=== PATIENT | male | born 1935 | race American Indian/Alaskan Native ===

== ENCOUNTER 2019-07-05 10:47 | Inpatient (IN) | payer MEDICARE ==
--- NOTE | 2019-07-05 11:40 | Emergency Department Report ---
ED General Adult HPI - General Chief complaint: Hypoglycemia Stated complaint: HYPOGLYCEMIA Time Seen by Provider: 07/05/19 11:35 Source: patient, EMS (verbal report received from EMS.EMS notes not available at time of chart dictation) Mode of arrival: Stretcher Limitations: Physical Limitation, Other (the patient is a poor historian) - History of Present Illness Initial comments: This is an 84-year-old gentleman. This patient is not known to this provider previously. We do not know the name of his primary care doctor. We do not know the full details of his past medical history. Apparently, he has a defibrillator in situ, and may have a history of diabetes. Patient brought to the hospital by EMS for complaint of recurrent hypoglycemia. As per verbal report from EMS, they have received 3 calls in the past 12 hours for hypoglycemia, 2 episodes which were resolved with oral glucose as per EMS. However, the patient is still persistently hypoglycemic. Accu-Chek in the emergency room is 56. The patient denies physical pain. He does not know what medications he takes. He reports he gets his prescriptions at [facility], on [address] The patient states that he is cold and is asking for blankets. -: Gradual Improves with: medication Worsens with: none - Related Data Home Medications Medication Instructions Recorded Confirmed Last Taken Unobtainable 07/05/19 07/05/19 Unknown Allergies Allergy/AdvReac Type Severity Reaction Status Date / Time No Known Allergies Allergy Verified 07/05/19 11:07 ED Review of Systems ROS: Stated complaint: HYPOGLYCEMIA Other details as noted in HPI Constitutional: denies: fever Eyes: denies: eye discharge ENT: denies: epistaxis Respiratory: denies: cough Cardiovascular: denies: chest pain, syncope Gastrointestinal: denies: abdominal pain Genitourinary: denies: dysuria Musculoskeletal: myalgia Skin: rash, other (chronic discoloration and skin lesions to the bilateral lower extremities) Neurological: weakness, confusion ED Past Medical Hx - Past Medical History Previous Medical History?: Yes Hx Hypertension: Yes Hx Diabetes: Yes Additional medical history: defib. - Surgical History Past Surgical History?: No - Social History Smoking Status: Never Smoker Substance Use Type: None - Medications Home Medications: Home Medications Medication Instructions Recorded Confirmed Last Taken Type Unobtainable 07/05/19 07/05/19 Unknown History ED Physical Exam - General Limitations: Physical Limitation, Other (the patient is a poor historian) General appearance: alert, in no apparent distress - Head Head exam: Present: atraumatic, normocephalic - Eye Eye exam: Present: normal appearance. Absent: nystagmus - ENT ENT exam: Present: normal exam, normal orophraynx, mucous membranes moist, normal external ear exam - Neck Neck exam: Present: normal inspection, full ROM. Absent: tenderness, meningismus - Respiratory Respiratory exam: Present: normal lung sounds bilaterally. Absent: respiratory distress - Cardiovascular Cardiovascular Exam: Present: regular rate, normal rhythm, normal heart sounds. Absent: bradycardia, tachycardia, irregular rhythm, systolic murmur, diastolic murmur, rubs, gallop - GI/Abdominal GI/Abdominal exam: Present: soft. Absent: distended, tenderness, guarding, rebound, rigid, pulsatile mass - Rectal Rectal exam: Present: deferred - Extremities Exam Extremities exam: Present: pedal edema, other (2+ pulses noted in the bilateral upper, lower extremities. There is no long bony tenderness. The pelvis is stable. Muscular compartments are soft. There is no redness, pus, streaking or crepitus noted.). Absent: normal inspection (chronic skin discoloration venous stasis noted), calf tenderness - Back Exam Back exam: Present: normal inspection. Absent: CVA tenderness (R), CVA tenderness (L), paraspinal tenderness, vertebral tenderness - Neurological Exam Neurological exam: Present: alert, oriented X3, other (Extraocular movements are intact bilaterally. There is no facial droop. The tongue is midline. Patient speaking in full complete sentences. There is no dysphonia. Hearing is grossly intact bilaterally. Shoulder shrug is intact bilaterally. 5/5 strength bilateral upper, lower extremities. Sensation is intact to light touch bilateral upper, lower extremities.) - Psychiatric Psychiatric exam: Present: flat affect - Skin Skin exam: Present: warm ED Course Vital Signs 07/05/19 11:07 Temperature 97.6 F Pulse Rate 76 Respiratory 16 Rate Blood Pressure 108/44 O2 Sat by Pulse 99 Oximetry - Reevaluation(s) Reevaluation #1: 07/05/19 12:35 Differential diagnosis, including not limited to: Pneumonia, urinary tract infection, thyroid dysfunction, medication side effect, persistent hypoglycemia Assessment and plan: 84-year-old gentleman brought to the ER for recurrent hypoglycemia. His family is not at the bedside at this time. I have requested medications to be reconciled to make further recommendations. The patient is also at this time refusing a rectal temperature, and straight catheterized urine sample. Currently, the patient is afebrile and with reassuring vital signs and does not appear to be in any acute distress. A meal tray is at the bedside. He will be placed on Accu-Chek every one hour, and started on a dextrose drip. We will admit the patient to the medical service once initial diagnostics have resulted. Reevaluation #2: 07/05/19 13:31 Patient eating food, and in no acute distress. Laboratory studies demonstrate normocytic anemia, rectal examination performed, patient found to be guaiac- negative. Chaperoned by nurse Jhoan Durham Numerous sacral wounds noted, nursing team instructed to photograph forms as per this hospital's policies. Laboratory studies also demonstrate renal insufficiency of unknown chronicity. Elevated troponin is reviewed and appreciated, this is likely a type II troponin leak, likely secondary to renal insufficiency. Hospital physician is paged to arrange admission, anticipate admission to Dr. Bethany Mcdonald service Patient refusing Damon catheter at this time. ED Medical Decision Making - Lab Data Result diagrams: 07/05/19 12:08 07/05/19 12:08 Vital Signs 07/05/19 11:07 Temperature 97.6 F Pulse Rate 76 Respiratory 16 Rate Blood Pressure 108/44 O2 Sat by Pulse 99 Oximetry Lab Results 07/05/19 Range/Units 11:07 POC Glucose 56 L (70-105) Vital Signs 07/05/19 11:07 Temperature 97.6 F Pulse Rate 76 Respiratory 16 Rate Blood Pressure 108/44 O2 Sat by Pulse 99 Oximetry Lab Results 07/05/19 07/05/19 07/05/19 Range/Units 11:07 12:08 12:08 WBC (4.5-11.0) K/mm3 RBC (3.65-5.03) M/mm3 Hgb (11.8-15.2) gm/dl Hct (35.5-45.6) % MCV (84-94) fl MCH (28-32) pg MCHC (32-34) % RDW (13.2-15.2) % Plt Count (140-440) K/mm3 Lymph % (Auto) (13.4-35.0) % [place] % (Auto) (0.0-7.3) % Eos % (Auto) (0.0-4.3) % Baso % (Auto) (0.0-1.8) % Lymph # (1.2-5.4) K/mm3 [place] # (0.0-0.8) K/mm3 Eos # (0.0-0.4) K/mm3 Baso # (0.0-0.1) K/mm3 Seg Neutrophils % (40.0-70.0) % Seg Neutrophils # (1.8-7.7) K/mm3 Sodium 132 L (137-145) mmol/L Potassium 3.9 (3.6-5.0) mmol/L Chloride 100.1 (98-107) mmol/L Carbon Dioxide 14 L (22-30) mmol/L Anion Gap 22 mmol/L BUN 87 H (9-20) mg/dL Creatinine 5.6 H (0.8-1.5) mg/dL Estimated GFR 10 ml/min BUN/Creatinine Ratio 16 % Glucose 62 L (75-100) mg/dL POC Glucose 56 L (70-105) Lactic Acid (0.7-2.0) mmol/L Calcium 8.4 (8.4-10.2) mg/dL Magnesium 2.10 (1.7-2.3) mg/dL Total Bilirubin 0.30 (0.1-1.2) mg/dL AST 11 (5-40) units/L ALT 6 L (7-56) units/L Alkaline Phosphatase 92 (35-129) units/L Total Creatine Kinase 259 H (55-170) units/L Troponin T 0.156 H* (0.00-0.029) ng/mL Total Protein 7.8 (6.3-8.2) g/dL Albumin 2.8 L (3.9-5) g/dL Albumin/Globulin Ratio 0.6 % Triglycerides 73 (2-149) mg/dL Cholesterol 107 (50-199) mg/dL LDL Cholesterol Direct 56 (50-130) mg/dL HDL Cholesterol 49 (40-59) mg/dL Cholesterol/HDL Ratio 2.16 % TSH (0.270-4.200) mlU/mL Free T4 (0.76-1.46) ng/dL Urine Color Yellow (Yellow) Urine Turbidity Cloudy (Clear) Urine pH 5.0 (5.0-7.0) Ur Specific [place] 1.016 (1.003-1.030) Urine Protein <15 mg/dl (Negative) mg/dL Urine Glucose (UA) Neg (Negative) mg/dL Urine Ketones Neg (Negative) mg/dL Urine Blood Sm (Negative) Urine Nitrite Neg (Negative) Urine Bilirubin Neg (Negative) Urine Urobilinogen < 2.0 (<2.0) mg/dL Ur Leukocyte Esterase Sm (Negative) Urine WBC (Auto) 8.0 H (0.0-6.0) /HPF Urine RBC (Auto) 4.0 (0.0-6.0) /HPF U Epithel Cells (Auto) 27.0 H (0-13.0) /HPF Urine Bacteria (Auto) 1+ (Negative) /HPF Urine Mucus Few /HPF Salicylates (2.8-20.0) mg/dL Acetaminophen (10.0-30.0) ug/mL 07/05/19 07/05/19 07/05/19 Range/Units 12:08 12:08 12:08 WBC (4.5-11.0) K/mm3 RBC (3.65-5.03) M/mm3 Hgb (11.8-15.2) gm/dl Hct (35.5-45.6) % MCV (84-94) fl MCH (28-32) pg MCHC (32-34) % RDW (13.2-15.2) % Plt Count (140-440) K/mm3 Lymph % (Auto) (13.4-35.0) % [place] % (Auto) (0.0-7.3) % Eos % (Auto) (0.0-4.3) % Baso % (Auto) (0.0-1.8) % Lymph # (1.2-5.4) K/mm3 [place] # (0.0-0.8) K/mm3 Eos # (0.0-0.4) K/mm3 Baso # (0.0-0.1) K/mm3 Seg Neutrophils % (40.0-70.0) % Seg Neutrophils # (1.8-7.7) K/mm3 Sodium (137-145) mmol/L Potassium (3.6-5.0) mmol/L Chloride (98-107) mmol/L Carbon Dioxide (22-30) mmol/L Anion Gap mmol/L BUN (9-20) mg/dL Creatinine (0.8-1.5) mg/dL Estimated GFR ml/min BUN/Creatinine Ratio % Glucose (75-100) mg/dL POC Glucose (70-105) Lactic Acid 1.00 (0.7-2.0) mmol/L Calcium (8.4-10.2) mg/dL Magnesium (1.7-2.3) mg/dL Total Bilirubin (0.1-1.2) mg/dL AST (5-40) units/L ALT (7-56) units/L Alkaline Phosphatase (35-129) units/L Total Creatine Kinase (55-170) units/L Troponin T (0.00-0.029) ng/mL Total Protein (6.3-8.2) g/dL Albumin (3.9-5) g/dL Albumin/Globulin Ratio % Triglycerides (2-149) mg/dL Cholesterol (50-199) mg/dL LDL Cholesterol Direct (50-130) mg/dL HDL Cholesterol (40-59) mg/dL Cholesterol/HDL Ratio % TSH 3.070 (0.270-4.200) mlU/mL Free T4 1.40 (0.76-1.46) ng/dL Urine Color (Yellow) Urine Turbidity (Clear) Urine pH (5.0-7.0) Ur Specific [place] (1.003-1.030) Urine Protein (Negative) mg/dL Urine Glucose (UA) (Negative) mg/dL Urine Ketones (Negative) mg/dL Urine Blood (Negative) Urine Nitrite (Negative) Urine Bilirubin (Negative) Urine Urobilinogen (<2.0) mg/dL Ur Leukocyte Esterase (Negative) Urine WBC (Auto) (0.0-6.0) /HPF Urine RBC (Auto) (0.0-6.0) /HPF U Epithel Cells (Auto) (0-13.0) /HPF Urine Bacteria (Auto) (Negative) /HPF Urine Mucus /HPF Salicylates (2.8-20.0) mg/dL Acetaminophen (10.0-30.0) ug/mL 07/05/19 07/05/1907/05/19 Range/Units 12:08 12:08 12:08 WBC 8.4 (4.5-11.0) K/mm3 RBC 2.82 L (3.65-5.03) M/mm3 Hgb 8.1 L (11.8-15.2) gm/dl Hct 23.9 L (35.5-45.6) % MCV 85 (84-94) fl MCH 29 (28-32) pg MCHC 34 (32-34) % RDW 16.0 H (13.2-15.2) % Plt Count 310 (140-440) K/mm3 Lymph % (Auto) 6.9 L (13.4-35.0) % Lares % (Auto) 8.3 H (0.0-7.3) % Eos % (Auto) 1.1 (0.0-4.3) % Baso % (Auto) 0.6 (0.0-1.8) % Lymph # 0.6 L (1.2-5.4) K/mm3 Lares # 0.7 (0.0-0.8) K/mm3 Eos # 0.1 (0.0-0.4) K/mm3 Baso # 0.0 (0.0-0.1) K/mm3 Seg Neutrophils % 83.1 H (40.0-70.0) % Seg Neutrophils # 7.0 (1.8-7.7) K/mm3 Sodium (137-145) mmol/L Potassium (3.6-5.0) mmol/L Chloride (98-107) mmol/L Carbon Dioxide (22-30) mmol/L Anion Gap mmol/L BUN (9-20) mg/dL Creatinine (0.8-1.5) mg/dL Estimated GFR ml/min BUN/Creatinine Ratio % Glucose (75-100) mg/dL POC Glucose (70-105) Lactic Acid (0.7-2.0) mmol/L Calcium (8.4-10.2) mg/dL Magnesium (1.7-2.3) mg/dL Total Bilirubin (0.1-1.2) mg/dL AST (5-40) units/L ALT (7-56) units/L Alkaline Phosphatase (35-129) units/L Total Creatine Kinase (55-170) units/L Troponin T (0.00-0.029) ng/mL Total Protein (6.3-8.2) g/dL Albumin (3.9-5) g/dL Albumin/Globulin Ratio % Triglycerides (2-149) mg/dL Cholesterol (50-199) mg/dL LDL Cholesterol Direct (50-130) mg/dL HDL Cholesterol (40-59) mg/dL Cholesterol/HDL Ratio % TSH (0.270-4.200) mlU/mL Free T4 (0.76-1.46) ng/dL Urine Color (Yellow) Urine Turbidity (Clear) Urine pH (5.0-7.0) Ur Specific [place] (1.003-1.030) Urine Protein (Negative) mg/dL Urine Glucose (UA) (Negative) mg/dL Urine Ketones (Negative) mg/dL Urine Blood (Negative) Urine Nitrite (Negative) Urine Bilirubin (Negative) Urine Urobilinogen (<2.0) mg/dL Ur Leukocyte Esterase (Negative) Urine WBC (Auto) (0.0-6.0) /HPF Urine RBC (Auto) (0.0-6.0) /HPF U Epithel Cells (Auto) (0-13.0) /HPF Urine Bacteria (Auto) (Negative) /HPF Urine Mucus /HPF Salicylates < 0.3 L (2.8-20.0) mg/dL Acetaminophen < 5.0 L (10.0-30.0) ug/mL 07/05/19 Range/Units 12:55 WBC (4.5-11.0) K/mm3 RBC (3.65-5.03) M/mm3 Hgb (11.8-15.2) gm/dl Hct (35.5-45.6) % MCV (84-94) fl MCH (28-32) pg MCHC (32-34) % RDW (13.2-15.2) % Plt Count (140-440) K/mm3 Lymph % (Auto) (13.4-35.0) % Lares % (Auto) (0.0-7.3) % Eos % (Auto) (0.0-4.3) % Baso % (Auto) (0.0-1.8) % Lymph # (1.2-5.4) K/mm3 Lares # (0.0-0.8) K/mm3 Eos # (0.0-0.4) K/mm3 Baso # (0.0-0.1) K/mm3 Seg Neutrophils % (40.0-70.0) % Seg Neutrophils # (1.8-7.7) K/mm3 Sodium (137-145) mmol/L Potassium (3.6-5.0) mmol/L Chloride (98-107) mmol/L Carbon Dioxide (22-30) mmol/L Anion Gap mmol/L BUN (9-20) mg/dL Creatinine (0.8-1.5) mg/dL Estimated GFR ml/min BUN/Creatinine Ratio % Glucose (75-100) mg/dL POC Glucose 135 H (70-105) Lactic Acid (0.7-2.0) mmol/L Calcium (8.4-10.2) mg/dL Magnesium (1.7-2.3) mg/dL Total Bilirubin (0.1-1.2) mg/dL AST (5-40) units/L ALT (7-56) units/L Alkaline Phosphatase (35-129) units/L Total Creatine Kinase (55-170) units/L Troponin T (0.00-0.029) ng/mL Total Protein (6.3-8.2) g/dL Albumin (3.9-5) g/dL Albumin/Globulin Ratio % Triglycerides (2-149) mg/dL Cholesterol (50-199) mg/dL LDL Cholesterol Direct (50-130) mg/dL HDL Cholesterol (40-59) mg/dL Cholesterol/HDL Ratio % TSH (0.270-4.200) mlU/mL Free T4 (0.76-1.46) ng/dL Urine Color (Yellow) Urine Turbidity (Clear) Urine pH (5.0-7.0) Ur Specific [place] (1.003-1.030) Urine Protein (Negative) mg/dL Urine Glucose (UA) (Negative) mg/dL Urine Ketones (Negative) mg/dL Urine Blood (Negative) Urine Nitrite (Negative) Urine Bilirubin (Negative) Urine Urobilinogen (<2.0) mg/dL Ur Leukocyte Esterase (Negative) Urine WBC (Auto) (0.0-6.0) /HPF Urine RBC (Auto) (0.0-6.0) /HPF U Epithel Cells (Auto) (0-13.0) /HPF Urine Bacteria (Auto) (Negative) /HPF Urine Mucus /HPF Salicylates (2.8-20.0) mg/dL Acetaminophen (10.0-30.0) ug/mL - EKG Data -: EKG Interpreted by Il EKG shows normal: sinus rhythm Rate: normal - EKG Data When compared to previous EKG there are: previous EKG unavailable 07/05/19 12:36 This EKG is limited by motion artifact. This is a sinus rhythm, with a left axis deviation, QTC prolonged, motion artifact, poor R wave progression, interventricular conduction delay, there is no dorsum to chest pain, there is no prior for comparison, the EKG is abnormal, it is not consistent with ST elevation myocardial infarction. - Radiology Data Radiology results: report reviewed, image reviewed nt Report Referring Physician: NIKOLAS BURNS Patient Name: MOMO WARD Date of : 1935 Sex: Male Report Date: 2019-07-05 Report Status: Finalized Findings [facility] [address] [place] [address] XRay Report Signed Patient: MOMO WARD MR#: [id number] : 1935 Acct:[id number] Age/Sex: 84 / M ADM Date: 07/05/19 Loc: ED Attending Dr: Ordering Physician: NIKOLAS BURNS MD Date of Service: 07/05/19 Procedure(s): XR chest 1V ap Accession Number(s): [id number] cc: NIKOLAS BURNS MD Fluoro Time In Minutes: CHEST 2 VIEWS INDICATION / CLINICAL INFORMATION: Chest pain. COMPARISON: None available. FINDINGS: SUPPORT DEVICES: None. HEART / MEDIASTINUM: Borderline enlarged. LUNGS / PLEURA: Trace interstitial edema with tiny pleural effusions. Signer Name: Nik Breaux MD Signed: 07/05/2019 12:09 PM Workstation Name: [id number] Transcribed By: Dictated By: Nik Breaux MD Electronically Authenticated By: Nik Breaux MD Signed Date/Time: 07/05/19 1209 Critical care attestation.: If time is entered above; I have spent that time in minutes in the direct care of this critically ill patient, excluding procedure time. ED Disposition Clinical Impression: Hypoglycemia, Renal insufficiency Anemia Qualifiers: Anemia type: other cause Other causes of anemia: other cause, not classified Qualified Code(s): D64.89 - Other specified anemias Disposition: OP ADMIT IP TO THIS HOSP Is pt being admited?: Yes Condition: Fair
--- NOTE | 2019-07-05 12:13 | XRay Report ---
CHEST 2 VIEWS INDICATION / CLINICAL INFORMATION: Chest pain. COMPARISON: None available. FINDINGS: SUPPORT DEVICES: None. HEART / MEDIASTINUM: Borderline enlarged. LUNGS / PLEURA: Trace interstitial edema with tiny pleural effusions. Signer Name: Nik Breaux MD Signed: 07/05/2019 12:09 PM Workstation Name: [id number]
[2019-07-05 12:35] LABS: Basophils % (Auto) 0.6 % (0.0-1.8); Eosinophils # (Auto) 0.1 K/mm3 (0.0-0.4); Eosinophils % (Auto) 1.1 % (0.0-4.3); Hematocrit 23.9 % (35.5-45.6); Hemoglobin 8.1 gm/dl (11.8-15.2); Lymphocytes # (Auto) 0.6 K/mm3 (1.2-5.4); Lymphocytes % (Auto) 6.9 % (13.4-35.0); Mean Corpuscular HGB Conc 34 % (32-34); Mean Corpuscular Volume 85 fl (84-94); Monocytes # (Auto) 0.7 K/mm3 (0.0-0.8); Monocytes % (Auto) 8.3 % (0.0-7.3); Platelet Count 310 K/mm3 (140-440); Red Blood Count 2.82 M/mm3 (3.65-5.03)
[2019-07-05 12:37] LABS: Bacteria,Urine 1+ /HPF (Negative); Bilirubin,Urine NEG (Negative); Blood,Urine SM (Negative); Color,Urine Yellow (Yellow); Mucus,Urine FEW /HPF; Protein,Urine <15 mg/dL mg/dL (Negative); Urobilinogen,Urine < 2.0 mg/dL (<2.0)
[2019-07-05 13:01] LABS: Albumin 2.8 g/dL (3.9-5); Calcium 8.4 mg/dL (8.4-10.2)
[2019-07-05 13:24] LABS: Chol/HDL Ratio 2.16 %
[2019-07-05] MEDS ORDERED: NACL 0.9% 500 ML 500 ML IV ONE (13:33)
--- NOTE | 2019-07-05 13:36 | History and Physical Report ---
History of Present Illness Chief complaint: My blood sugar is gael low History of present illness: 84 YO Male with HTN, DM, Dementia, Debility, presents to ED for evaluation. Pt states that he has experienced low blood glucose levels over the past 1 day. EMS notified by family members for repeated low serum glucose levels. Pt seen and evaluated by EMS and was found to have serum glucose of 56. Pt transported to [facility]. Pt seen and evaluated in ED and found to have Acute Kidney Injury, as well as RLE Cellulitis, and Urinary Trace Infection. Pt denies fever, chills, CP, Palpitations, NVD, Trauma, BRBPR, Productive cough, or recent ill contacts. No prior admission for review. Pt is currently debilitated and dependent for 3/6 ADL. Pt is largely bed bound. Pt admitted to [facility] unit. Nephrology consulted in ED. Wound consult placed in ED. Past History Past Medical History: diabetes, hypertension Past Surgical History: Other (ICD placement) Social history: single, lives with family. denies: smoking, alcohol abuse, prescription drug abuse Family history: denies: diabetes, hypertension Medications and Allergies Allergies Allergy/AdvReac Type Severity Reaction Status Date / Time No Known Allergies Allergy Verified 07/05/19 11:07 Home Medications Medication Instructions Recorded Confirmed Last Taken Type Unobtainable 07/05/19 07/05/19 Unknown History Active Meds: Active Medications Dextrose (D10w) 1,000 mls @ 125 mls/hr IV DIRECT AWA Sodium Chloride (Nacl 0.9% 500 Ml) 500 mls @ 999 mls/hr IV ONCE ONE Stop: 07/05/19 14:03 Review of Systems Constitutional: no weight loss, no weight gain, no fever, no chills Ears, nose, mouth and throat: no ear pain, no ear discharge, no tinnitis, no decreased hearing, no nose pain, no nasal discharge, no sinus pressure Cardiovascular: no chest pain, no orthopnea, no palpitations, no edema, no syncope, no lightheadedness Respiratory: no cough, no cough with sputum, no excessive sputum, no hemoptysis, no dyspnea on exertion Gastrointestinal: no nausea, no diarrhea, no constipation, no change in bowel habits, no hematemesis Genitourinary Male: no dysuria, no hematuria, no flank pain, no discharge, no urinary hesitancy, no nocturia, no erectile dysfunction Rectal: no pain, no incontinence, no bleeding Musculoskeletal: no neck stiffness, no neck pain, no shooting arm pain, no low back pain Integumentary: no rash, no pruritis, no redness, no wounds, no jaundice, no boils Neurological: no transient paralysis, no paralysis, no weakness, no parathesias, no numbness, no seizures, no tremors Psychiatric: no anxiety, no change in sleep habits, no insomnia, no change in libido, no suicidal ideation Endocrine: no cold intolerance, no excessive thirst, no polyuria Hematologic/Lymphatic: no easy bruising, no easy bleeding, no lymphadenopathy Allergic/Immunologic: no urticaria, no allergic rhinitis, no wheezing, no persistent infections Exam - Constitutional Vitals: Temp Pulse Resp BP Pulse Ox 97.6 F 76 16 108/44 99 07/05/19 11:07 07/05/19 11:07 07/05/19 11:07 07/05/19 11:07 07/05/19 11:07 General appearance: Present: mild distress, obese, disheveled - EENT Eyes: Present: PERRL ENT: hearing intact, clear oral mucosa - Neck Neck: Present: supple, normal ROM - Respiratory Respiratory effort: normal Respiratory: bilateral: CTA - Cardiovascular Heart Sounds: Present: S1 & S2. Absent: rub, click - Extremities Extremities: pulses symmetrical, No edema Extremity abnormal: edema, ulceration, tenderness, other (dry skin, malodorous, ) Peripheral Pulses: within normal limits - Abdominal General gastrointestinal: Present: soft, non-tender, non-distended, normal bowel sounds Male genitourinary: Present: normal - Integumentary Integumentary: Present: clear, warm, dry - Musculoskeletal Musculoskeletal: generalized weakness - Psychiatric Psychiatric: appropriate mood/affect, intact judgment & insight - Neurologic Neurologic: CNII-XII intact, moves all extremities Results - Labs CBC & Chem 7: 07/05/19 12:08 07/05/19 12:08 Labs: Abnormal lab results 07/05/19 07/05/19 07/05/19 Range/Units 11:07 12:08 12:08 RBC (3.65-5.03) M/mm3 Hgb (11.8-15.2) gm/dl Hct (35.5-45.6) % RDW (13.2-15.2) % Lymph % (Auto) (13.4-35.0) % [place] % (Auto) (0.0-7.3) % Lymph # (1.2-5.4) K/mm3 Seg Neutrophils % (40.0-70.0) % Sodium 132 L (137-145) mmol/L Carbon Dioxide 14 L (22-30) mmol/L BUN 87 H (9-20) mg/dL Creatinine 5.6 H (0.8-1.5) mg/dL Glucose 62 L (75-100) mg/dL POC Glucose 56 L (70-105) ALT 6 L (7-56) units/L Total Creatine Kinase 259 H (55-170) units/L Troponin T 0.156 H* (0.00-0.029) ng/mL Albumin 2.8 L (3.9-5) g/dL Urine WBC (Auto) 8.0 H (0.0-6.0) /HPF U Epithel Cells (Auto) 27.0 H (0-13.0) /HPF Salicylates (2.8-20.0) mg/dL Acetaminophen (10.0-30.0) ug/mL 07/05/19 07/05/19 07/05/19 Range/Units 12:08 12:08 12:08 RBC 2.82 L (3.65-5.03) M/mm3 Hgb 8.1 L (11.8-15.2) gm/dl Hct 23.9 L (35.5-45.6) % RDW 16.0 H (13.2-15.2) % Lymph % (Auto) 6.9 L (13.4-35.0) % [place] % (Auto) 8.3 H (0.0-7.3) % Lymph # 0.6 L (1.2-5.4) K/mm3 Seg Neutrophils % 83.1 H (40.0-70.0) % Sodium (137-145) mmol/L Carbon Dioxide (22-30) mmol/L BUN (9-20) mg/dL Creatinine (0.8-1.5) mg/dL Glucose (75-100) mg/dL POC Glucose (70-105) ALT (7-56) units/L Total Creatine Kinase (55-170) units/L Troponin T (0.00-0.029) ng/mL Albumin (3.9-5) g/dL Urine WBC (Auto) (0.0-6.0) /HPF U Epithel Cells (Auto) (0-13.0) /HPF Salicylates < 0.3 L (2.8-20.0) mg/dL Acetaminophen < 5.0 L (10.0-30.0) ug/mL 07/05/19 Range/Units 12:55 RBC (3.65-5.03) M/mm3 Hgb (11.8-15.2) gm/dl Hct (35.5-45.6) % RDW (13.2-15.2) % Lymph % (Auto) (13.4-35.0) % [place] % (Auto) (0.0-7.3) % Lymph # (1.2-5.4) K/mm3 Seg Neutrophils % (40.0-70.0) % Sodium (137-145) mmol/L Carbon Dioxide (22-30) mmol/L BUN (9-20) mg/dL Creatinine (0.8-1.5) mg/dL Glucose (75-100) mg/dL POC Glucose 135 H (70-105) ALT (7-56) units/L Total Creatine Kinase (55-170) units/L Troponin T (0.00-0.029) ng/mL Albumin (3.9-5) g/dL Urine WBC (Auto) (0.0-6.0) /HPF U Epithel Cells (Auto) (0-13.0) /HPF Salicylates (2.8-20.0) mg/dL Acetaminophen (10.0-30.0) ug/mL Assessment and Plan - Patient Problems (1) Cellulitis Current Visit: Yes Status: Acute Qualifiers: Site of cellulitis of extremity: lower extremity Laterality: left Plan to address problem: CT to BLE, wound care consulted, IV antibiotic therapy x 1 dose due to renal failure, CBC, CMP, supportive care, (2) WILLIAM (acute kidney injury) Current Visit: Yes Status: Acute Plan to address problem: Nephrology consulted in ED, strict I/O,daily weight, monitor uop q shift, avoid nephrotoxic agents, renal ultrasound, urine electrolytes. (3) UTI (urinary tract infection) Current Visit: Yes Status: Acute Qualifiers: Encounter type: initial encounter Plan to address problem: IV antibiotic therapy, urinalysis, supportive care, CBC, (4) Debility Current Visit: Yes Status: Acute Plan to address problem: PT consulted, supportive care. (5) Hypoglycemia Current Visit: Yes Status: Acute Plan to address problem: Dextrose drip, serial glucose monitoring, supportive care, hold antihyperglycemic medication overnight. (6) DVT prophylaxis Current Visit: Yes Status: Acute Plan to address problem: SCD to BLE while in bed, prophylactic heparin
[2019-07-05] MEDS ORDERED: SODIUM CHLORIDE FLUSH SYRINGE 10 ML IV PRN (13:44)
[2019-07-05] MEDS ORDERED: ZOFRAN IV PRN (13:44)
[2019-07-05] MEDS ORDERED: PROVENTIL IH PRN (13:44)
[2019-07-05] MEDS ORDERED: NACL 0.9% 1000 ML 1,000 ML IV SCH (14:00)
[2019-07-05] MEDS ORDERED: NACL 0.9% 500 ML 500 ML ONE (14:02)
[2019-07-05] MEDS ORDERED: VANCOMYCIN/NS 1 GM/250 ML 1 GM/250 ML BAG IV ONE (17:00)
--- NOTE | 2019-07-05 19:20 | Cat Scan Report ---
CT lower extremity RT wo con INDICATION / CLINICAL INFORMATION: pain/swelling. TECHNIQUE: Routine CT of the right foreleg without IV contrast. All CT scans at this location are performed usin g CT dose reduction for KATIERA by means of automated exposure control. COMPARISON: None available. FINDINGS: CT right foreleg. There is a severe amount of cellulitis and edema throughout the soft tissues of the right foreleg. The fascia appears grossly intact but there is no evidence of postcontrast enhancemen t. There is severe osteopenia of the right foreleg involving both the tibia and fibula. 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 Small knee effusion. IMPRESSION: Severe subcutaneous edema of the right foreleg. Severe osteopenia of the right foreleg. N o obvious drainable fluid collection is identified within the limits of the noncontrast technique. Se ewa atherosclerotic disease throughout much of the right lower extremity arteries. Signer Name: Nik Breaux MD Signed: 07/05/2019 7:16 PM Workstation Name: [id number]
--- NOTE | 2019-07-05 19:22 | Cat Scan Report ---
CT lower extremity LT wo con INDICATION / CLINICAL INFORMATION: pain/swelling. Left foreleg pain and swelling. TECHNIQUE: Routine CT of the left foreleg without contrast All CT scans at this location are performed using CT dose reduction for ALARA by means of automated exposure control. COMPARISON: None available. FINDINGS: CT left foreleg Moderate subcutaneous edema of the left foreleg, not as severe as the contralateral right foreleg. Os teopenia of the left foreleg tibia and fibula. Mild degenerative changes of the left knee in the left ankle. Severe atherosclerotic calcification of the left foreleg anterior tibialis, posterior tibiali s and peroneal arteries. IMPRESSION: Severe cellulitis of the left foreleg, as above. Osteopenia of the left foreleg without evidence of d efinite osteomyelitis. Signer Name: Nik Breaux MD Signed: 07/05/2019 7:17 PM Workstation Name: [id number]
[2019-07-05] MEDS: D10W 1,000 ML IV SCH (20:38)
[2019-07-05] MEDS: TYLENOL PO PRN (20:39)
[2019-07-05] MEDS: HEPARIN SUB-Q SCH (22:24)
[2019-07-05] MEDS: SODIUM CHLORIDE FLUSH SYRINGE 10 ML IV SCH (22:25)
[2019-07-05 23:22] LABS: Creatinine,Urine 150.9 mg/dL (0.1-20.0)
[2019-07-06 05:29] LABS: Basophils % (Auto) 0.5 % (0.0-1.8); Eosinophils # (Auto) 0.1 K/mm3 (0.0-0.4); Eosinophils % (Auto) 1.7 % (0.0-4.3); Hematocrit 22.6 % (35.5-45.6); Hemoglobin 7.8 gm/dl (11.8-15.2); Lymphocytes # (Auto) 0.8 K/mm3 (1.2-5.4); Mean Corpuscular HGB Conc 34 % (32-34); Mean Corpuscular Volume 84 fl (84-94); Monocytes # (Auto) 0.6 K/mm3 (0.0-0.8); Monocytes % (Auto) 9.3 % (0.0-7.3); Platelet Count 295 K/mm3 (140-440); Red Blood Count 2.68 M/mm3 (3.65-5.03); Red Cell Distribution Width 15.7 % (13.2-15.2)
[2019-07-06] MEDS ORDERED: D50W (25GM) Syringe IV ONE (05:38)
[2019-07-06 06:00] LABS: Albumin 2.5 g/dL (3.9-5); Calcium 8.3 mg/dL (8.4-10.2)
[2019-07-06] MEDS: D10W 1,000 ML IV SCH (06:35)
[2019-07-06] MEDS: TYLENOL PO PRN (07:25)
[2019-07-06] MEDS ORDERED: D50W (25GM) Syringe IV PRN (07:57)
[2019-07-06] MEDS: HEPARIN SUB-Q SCH ×2 (09:00→22:14)
[2019-07-06] MEDS: SODIUM CHLORIDE FLUSH SYRINGE 10 ML IV SCH ×2 (09:01→22:14)
--- NOTE | 2019-07-06 09:43 | Consultation ---
History of Present Illness - Reason for Consult Consult date: 07/06/19 acute renal failure - History of Present Illness The patient is an 84 YO male who is known to me from previous admission with history significant for DM type 2, Hypertension, Hyperlipidemia, CAD, CHF s/p PPM and PVD who was brought to [facility] ED with low blood sugar. Per pt he has experienced low blood glucose levels of 1 day duration. EMS found him to have blood glucose of 56. Patient is a poor historian. He admits decreased PO intake. Pt denies fever, chills, N, V, D, abd pain, cough, dysuria, hematuria, rash, dizziness, CP or sob. In ED he was found to have Acute Kidney Injury and UA suggestive of UTI. Labs were significant for creatinine 5.6 and bicarb 18. Nephrology was consulted for further evaluation. Past History Past Medical History: diabetes, heart failure, hypertension, other (PVD) Past Surgical History: Other (ICD placement) Social history: single, lives with family. denies: smoking, alcohol abuse, pre scription drug abuse Family history: denies: diabetes, hypertension Medications and Allergies Allergies Allergy/AdvReac Type Severity Reaction Status Date / Time No Known Allergies Allergy Verified 07/05/19 11:07 Home Medications Medication Instructions Recorded Confirmed Last Taken Type ALBUTEROL NEB's [Proventil] 2.5 mg IH BID 07/06/19 07/06/19 07/03/19 15:00 History Albuterol Sulfate [Proventil Hfa] 6.7 gm IH BID PRN 07/06/19 07/06/19 Unknown History Aspirin EC [Halfprin EC] 81 mg PO HS 07/06/19 07/06/19 07/03/19 21:00 History Carvedilol [Coreg] 6.25 mg PO BID 07/06/19 07/06/19 Unknown History Cilostazol [Pletal] 50 mg PO BID 07/06/19 07/06/19 07/03/19 21:00 History Furosemide [Lasix TAB] 40 mg PO QDAY 07/06/19 07/06/19 Unknown History Losartan Potassium 100 mg PO DAILY 07/06/19 07/06/19 Unknown History Pravastatin Sodium [Pravastatin] 40 mg PO HS 07/06/19 07/06/19 07/03/19 21:00 History Simvastatin 20 mg PO HS 07/06/19 07/06/19 07/03/19 21:00 History Sitagliptin Phosphate [Januvia] 100 mg PO DAILY 07/06/19 07/06/19 07/03/19 09:00 History Tamsulosin [Flomax] 0.4 mg PO 07/06/19 07/06/19 07/03/19 21:00 History amLODIPine 10 mg PO DAILY 07/06/19 07/06/19 Unknown History Active Meds: Active Medications Acetaminophen (Tylenol) 650 mg PO Q4H PRN PRN Reason: Pain MILD(1-3)/Fever >100.5/GORDILLO Last Admin: 07/06/19 07:25 Dose: 650 mg Documented by: Albuterol (Proventil) 2.5 mg IH Q4HRT PRN PRN Reason: Shortness Of Breath Dextrose (D50w (25gm) Syringe) 25 ml IV PRN PRN PRN Reason: Hypoglycemia Heparin Sodium (Porcine) (Heparin) 5,000 unit SUB-Q Q12HR [facility] Last Admin: 07/06/19 09:00 Dose: 5,000 unit Documented by: Dextrose (D10w) 1,000 mls @ 125 mls/hr IV DIRECT [facility] Last Admin: 07/06/19 06:35 Dose: 125 mls/hr Documented by: Ondansetron HCl (Zofran) 4 mg IV Q8H PRN PRN Reason: Nausea And Vomiting Sodium Chloride (Sodium Chloride Flush Syringe 10 Ml) 10 ml IV BID [facility] Last Admin: 07/06/19 09:01 Dose: 10 ml Documented by: Sodium Chloride (Sodium Chloride Flush Syringe 10 Ml) 10 ml IV PRN PRN PRN Reason: LINE FLUSH Review of Systems Constitutional: anorexia, fatigue, poor appetite, no weight loss, no weight gain, no fever, no chills, no weakness Cardiovascular: high blood pressure, leg edema, no chest pain, no orthopnea, no edema, no syncope, no lightheadedness, no shortness of breath Respiratory: no cough, no hemoptysis, no shortness of breath Gastrointestinal: no abdominal pain, no nausea, no vomiting, no diarrhea Genitourinary Male: no dysuria, no hematuria Integumentary: no rash, no wounds, no jaundice Neurological: no paralysis Exam - Vital Signs Vital signs: Vital Signs Temp Pulse Resp BP Pulse Ox 97.6 F 76 16 108/44 99 07/05/19 11:07 07/05/19 11:07 07/05/19 11:07 07/05/19 11:07 07/05/19 11:07 - General Appearance General appearance: well-developed, appears stated age, other (no distress) EENT: ATNC, PERRL, hearing intact, vision intact Neck: Present: neck supple, trachea midline Respiratory: Clear to Ascultation Heart: regular Gastrointestinal: Absent: tenderness, distended Integumentary: warm and dry, chronic venous stasis Neurologic: no focal deficit, no asterixis, alert and oriented x3 Musculoskeletal: Present: other (no edema) Results - Lab Results 07/06/19 04:56 07/06/19 17:46 Most recent lab results Calcium 8.3 mg/dL (8.4-10.2) L 07/06/19 04:56 Magnesium 2.10 mg/dL (1.7-2.3) 07/05/19 12:08 150.9 mg/dL (0.1-20.0) H 07/05/19 22:30 36 mmol/L 07/05/19 22:30 - Image Kidney/bladder ultrasound: pending Assessment and Plan 1. Acute kidney injury: Vasomotor WILLIAM in the setting of hypotension. Renal US pending. Continue IV fluids. Renal function is improving. Monitor renal function. Avoid nephrotoxic agents. Meds dosage based on GFR. 2. FEN: Anion gap MA, improving. Continue IV fluids. Monitor lytes. 3. LE cellulitis: UTI. 4. Hypoglycemia: Monitor. 5. H/o CHF. 6. Normochromic Anemia: POA. Monitor H/H.
[2019-07-06] MEDS: NACL 0.9% 1000 ML 1,000 ML IV SCH ×2 (10:12→23:25)
[2019-07-06] MEDS: D50W (25GM) Vial IV PRN ×4 (11:48→22:23)
[2019-07-06] MEDS ORDERED: GLUCAGEN IV ONE (16:30)
[2019-07-07 06:36] LABS: Hematocrit 23.6 % (35.5-45.6); Hemoglobin 8.1 gm/dl (11.8-15.2)
--- NOTE | 2019-07-07 06:58 | Progress Note ---
Assessment and Plan (1) Cellulitis Current Visit: Yes Status: Acute Qualifiers: Site of cellulitis of extremity: lower extremity Laterality: left Plan to address problem: CT to BLE, wound care consulted, IV antibiotic therapy x 1 dose due to renal failure, CBC, CMP, supportive care, (2) WILLIAM (acute kidney injury) Current Visit: Yes Status: Acute Plan to address problem: Nephrology consulted in ED, strict I/O,daily weight, monitor uop q shift, avoid nephrotoxic agents, renal ultrasound, urine electrolytes. (3) UTI (urinary tract infection) Current Visit: Yes Status: Acute Qualifiers: Encounter type: initial encounter Plan to address problem: IV antibiotic therapy, urinalysis, supportive care, CBC, (4) Debility Current Visit: Yes Status: Acute Plan to address problem: PT consulted, supportive care. (5) Hypoglycemia Current Visit: Yes Status: Acute Plan to address problem: Dextrose drip, serial glucose monitoring, supportive care, hold antihyperglycemic medication overnight. Glucagon IM x1 (6) DVT prophylaxis Current Visit: Yes Status: Acute Plan to address problem: SCD to BLE while in bed, prophylactic heparin Subjective Date of service: 07/06/19 Principal diagnosis: Persistent Hypoglycemia and RLE cellulitis Interval history: 84 YO Male with HTN, DM, Dementia, Debility, presents to ED for evaluation. Pt states that he has experienced low blood glucose levels over the past 1 day. EMS notified by family members for repeated low serum glucose levels. Pt seen and evaluated by EMS and was found to have serum glucose of 56. Pt transported to [facility]. Pt seen and evaluated in ED and found to have Acute Kidney Injury, as well as RLE Cellulitis, and Urinary Trace Infection. Pt denies fever, chills, CP, Palpitations, NVD, Trauma, BRBPR, Productive cough, or recent ill contacts. No prior admission for review. Pt is currently debilitated and dependent for 3/6 ADL. Pt is largely bed bound. Pt admitted to [facility] unit. Nephrology consulted in ED. Wound consult placed in ED. Objective - Constitutional Vitals: Vital Signs - 12hr 07/06/19 07/06/19 07/07/19 20:18 22:00 02:53 Temperature 98.7 F 98.7 F Pulse Rate 92 H 92 H 90 Pulse Rate [ 92 H Apical] Pulse Rate [ 92 H From Monitor] Respiratory 18 18 18 Rate Blood Pressure 119/49 128/47 O2 Sat by Pulse 98 98 99 Oximetry General appearance: Present: no acute distress, well-nourished - EENT Eyes: PERRL, EOM intact ENT: hearing intact, clear oral mucosa Ears: bilateral: normal - Neck Neck: supple, normal ROM - Respiratory Respiratory effort: normal Respiratory: bilateral: CTA - Breasts Breasts: normal - Cardiovascular Heart rate: 78 Rhythm: regular Heart Sounds: Present: S1 & S2. Absent: gallop, rub Extremities: no ischemia, pulses intact, No edema, normal color, Full ROM - Gastrointestinal General gastrointestinal: Present: soft, non-tender, non-distended, normal bowel sounds - Genitourinary Male genitourinary: normal - Integumentary Integumentary: clear, warm, dry - Musculoskeletal Musculoskeletal: 1, strength equal bilaterally - Neurologic Neurologic: moves all extremities - Psychiatric Psychiatric: appropriate mood/affect, intact judgment & insight, memory intact, depressed - Allied health notes Allied health notes reviewed: nursing, case management - Labs CBC & Chem 7: 07/07/19 05:47 07/06/19 17:46 Labs: Abnormal lab results 07/06/19 07/06/19 07/06/19 Range/Units 09:05 11:28 11:49 Hgb (11.8-15.2) gm/dl Hct (35.5-45.6) % Glucose (75-100) mg/dL POC Glucose 407 H < 40 L < 40 L (70-105) 07/06/19 07/06/19 07/06/19 Range/Units 11:52 11:59 14:15 Hgb (11.8-15.2) gm/dl Hct (35.5-45.6) % Glucose 121 H (75-100) mg/dL POC Glucose 55 L < 40 L (70-105) 07/06/19 07/06/19 07/06/19 Range/Units 14:17 16:26 17:41 Hgb (11.8-15.2) gm/dl Hct (35.5-45.6) % Glucose (75-100) mg/dL POC Glucose 58 L < 40 L 141 H (70-105) 07/06/19 07/07/19 Range/Units 21:42 05:47 Hgb 8.1 L (11.8-15.2) gm/dl Hct 23.6 L (35.5-45.6) % Glucose (75-100) mg/dL POC Glucose 63 L (70-105)
[2019-07-07 07:00] LABS: BUN/Creatinine Ratio 35; Blood Urea Nitrogen 46 mg/dL (9-20); Calcium 8.5 mg/dL (8.4-10.2); Hemolysis Index 0
[2019-07-07] MEDS: HEPARIN SUB-Q SCH ×2 (09:03→22:14)
[2019-07-07] MEDS: SODIUM CHLORIDE FLUSH SYRINGE 10 ML IV SCH ×2 (09:04→22:13)
--- NOTE | 2019-07-07 11:50 | Progress Note ---
Assessment and Plan 1. Acute kidney injury: Vasomotor WILLIMA in the setting of hypotension. Renal US pending. Continue IV fluids. Renal function is better. Monitor renal function. Avoid nephrotoxic agents. 2. FEN: Anion gap MA, improving. Replete Phos. Continue IV fluids. Monitor lytes. 3. Hypoglycemia: Monitor. 4. H/o CHF. 5. Normochromic Anemia: POA. Monitor H/H. Subjective Date of service: 07/07/19 Principal diagnosis: Persistent Hypoglycemia and RLE cellulitis Interval history: Patient was seen and examined at the bedside. Doing ok. Objective - Vital Signs Vital signs: Vital Signs - 12hr 07/07/19 07/07/19 07/07/19 02:53 07:12 09:28 Temperature 98.7 F 98.2 F Pulse Rate 90 80 82 Pulse Rate [ From Monitor] Respiratory 18 18 Rate Blood Pressure 128/47 112/46 O2 Sat by Pulse 99 94 Oximetry 07/07/19 09:36 Temperature Pulse Rate Pulse Rate [ 82 From Monitor] Respiratory Rate Blood Pressure O2 Sat by Pulse 94 Oximetry - General Appearance General appearance: well-developed, well-nourished, appears stated age, other (no distress) EENT: ATNC, PERRL, hearing intact, vision intact Neck: supple Respiratory: Present: Clear to Ascultation Cardiology: regular, S1S2, no murmurs Gastrointestinal: normoactive bowel sounds, no distended Integumentary: chronic venous stasis Neurologic: no focal deficit, no asterixis, alert and oriented x3 Musculoskeletal: other (no edema) - Lab 07/07/19 05:47 07/07/19 05:47 Most recent lab results Calcium 8.5 mg/dL (8.4-10.2) 07/07/19 05:47 Phosphorus 2.40 mg/dL (2.5-4.5) L 07/07/19 05:47 Magnesium 1.80 mg/dL (1.7-2.3) 07/07/19 05:47 150.9 mg/dL (0.1-20.0) H 07/05/19 22:30 36 mmol/L 07/05/19 22:30 Medications & Allergies - Medications Allergies/Adverse Reactions: Allergies No Known Allergies Allergy (Verified 07/05/19 11:07) Home Medications: Home Medications Medication Instructions Recorded Confirmed Last Taken Type ALBUTEROL NEB's [Proventil] 2.5 mg IH BID 07/06/19 07/06/19 07/03/19 15:00 History Albuterol Sulfate [Proventil Hfa] 6.7 gm IH BID PRN 07/06/19 07/06/19 Unknown History Aspirin EC [Halfprin EC] 81 mg PO HS 07/06/19 07/06/19 07/03/19 21:00 History Carvedilol [Coreg] 6.25 mg PO BID 07/06/19 07/06/19 Unknown History Cilostazol [Pletal] 50 mg PO BID 07/06/19 07/06/19 07/03/19 21:00 History Furosemide [Lasix TAB] 40 mg PO QDAY 07/06/19 07/06/19 Unknown History Losartan Potassium 100 mg PO DAILY 07/06/19 07/06/19 Unknown History Pravastatin Sodium [Pravastatin] 40 mg PO HS 07/06/19 07/06/19 07/03/19 21:00 History Simvastatin 20 mg PO HS 07/06/19 07/06/19 07/03/19 21:00 History Sitagliptin Phosphate [Januvia] 100 mg PO DAILY 07/06/19 07/06/19 07/03/19 09:00 History Tamsulosin [Flomax] 0.4 mg PO HS 07/06/19 07/06/19 07/03/19 21:00 History amLODIPine 10 mg PO DAILY 07/06/19 07/06/19 Unknown History Active Medications: Generic Name Dose Route Start Last Admin Trade Name Mihaiq PRN Reason Stop Dose Admin Acetaminophen 650 mg 07/05/19 13:44 07/06/19 07:25 Tylenol PO 650 mg Q4H PRN Administration Pain MILD(1-3)/Fever >100.5/GORDILLO Albuterol 2.5 mg 07/05/19 13:44 Proventil IH Q4HRT PRN Shortness Of Breath Dextrose 25 gm 07/06/19 11:28 07/06/19 22:23 D50w (25gm) Vial IV 25 gm PRN PRN Administration HYPOGLYCEMIA Heparin Sodium (Porcine) 5,000 unit 07/05/19 22:00 07/07/19 09:03 Heparin SUB-Q 5,000 unit Q12HR AWA Administration Sodium Chloride 1,000 mls @ 75 mls/hr 07/06/19 11:00 07/06/19 23:25 Nacl 0.9% 1000 Ml IV 75 mls/hr DIRECT AWA Administration Ondansetron HCl 4 mg 07/05/19 13:44 Zofran IV Q8H PRN Nausea And Vomiting Sodium Chloride 10 ml 07/05/19 22:00 07/07/19 09:04 Sodium Chloride Flush Syringe 10 Ml IV 10 ml BID AWA Administration Sodium Chloride 10 ml 07/05/19 13:44 Sodium Chloride Flush Syringe 10 Ml IV PRN PRN LINE FLUSH
[2019-07-07] MEDS: AD OINTMENT TP SCH (13:44)
--- NOTE | 2019-07-07 13:44 | Ultrasound Report ---
ULTRASOUND RENAL INDICATION / CLINICAL INFORMATION: Acute kidney injury. COMPARISON: None available. FINDINGS: RIGHT KIDNEY: Length = 10.9 cm. [normal > 9 cm] - Parenchymal Thickness = 1.5 cm. [normal > 1.5 cm] - Echogenicity: Increased - Hydronephrosis: None. - Cyst or mass: No significant abnormality. - Stones: None seen. LEFT KIDNEY: Length = 11.7 cm. [normal > 9 cm] - Parenchymal Thickness = 1.7 cm. [normal > 1.5 cm] - Echogenicity: Increased - Hydronephrosis: None. - Cyst or mass: A 3.1 x 3.9 x 2.6 cm cyst is noted near mid pole. - Stones: None seen. URINARY BLADDER: No significant abnormality. FREE FLUID: None. ADDITIONAL FINDINGS: None. IMPRESSION: Increased renal parenchymal echotexture consistent with nonspecific renal parenchymal disease. 3.9 c m left renal cyst. No obstructive uropathy is identified. Signer Name: Gregory Carrillo Jr, MD Signed: 07/07/2019 1:40 PM Workstation Name: [id number]
[2019-07-07] MEDS ORDERED: PHOS-NAK PO ONE (14:00)
[2019-07-07] MEDS: NACL 0.9% 1000 ML 1,000 ML IV SCH (22:12)
[2019-07-08 06:26] LABS: BUN/Creatinine Ratio 28; Blood Urea Nitrogen 22 mg/dL (9-20); Calcium 8.5 mg/dL (8.4-10.2); Hemolysis Index 0
--- NOTE | 2019-07-08 07:38 | Progress Note ---
Assessment and Plan (1) Cellulitis Current Visit: Yes Status: Acute Qualifiers: Site of cellulitis of extremity: lower extremity Laterality: left Plan to address problem: CT to BLE, wound care consulted, IV antibiotic therapy x 1 dose due to renal failure, CBC, CMP, supportive care, D/c on oral aabz (2) WILLIAM (acute kidney injury) Current Visit: Yes Status: Acute Plan to address problem: Nephrology consulted in ED, strict I/O,daily weight, monitor uop q shift, avoid nephrotoxic agents, renal ultrasound, urine electrolytes. Bun/cr----20/0.8 (3) UTI (urinary tract infection) Current Visit: Yes Status: Acute Qualifiers: Encounter type: initial encounter Plan to address problem: IV antibiotic therapy, urinalysis, supportive care, CBC, (4) Debility Current Visit: Yes Status: Acute Plan to address problem: PT consulted, supportive care. (5) Hypoglycemia Current Visit: Yes Status: Acute Plan to address problem: Dextrose drip, serial glucose monitoring, supportive care, hold antihypergl ycemic medication overnight. Glucagon IM x1 (6) DVT prophylaxis Current Visit: Yes Status: Acute Plan to address problem: SCD to BLE while in bed, prophylactic heparin Subjective Date of service: 07/07/19 Principal diagnosis: Persistent Hypoglycemia and RLE cellulitis Interval history: 84 YO Male with HTN, DM, Dementia, Debility, presents to ED for evaluation. Pt states that he has experienced low blood glucose levels over the past 1 day. EMS notified by family members for repeated low serum glucose levels. Pt seen and evaluated by EMS and was found to have serum glucose of 56. Pt transported to [facility]. Pt seen and evaluated in ED and found to have Acute Kidney Injury, as well as RLE Cellulitis, and Urinary Trace Infection. Pt denies fever, chills, CP, Palpitations, NVD, Trauma, BRBPR, Productive cough, or recent ill contacts. No prior admission for review. Pt is currently debilitated and dependent for 3/6 ADL. Pt is largely bed bound. Pt admitted to [facility] unit. Nephrology consulted in ED. Wound consult placed in ED. Was persistently hypoglycemic yesterday.Better today--No hypoglycemic episodes today Objective - Constitutional Vitals: Vital Signs - 12hr 07/07/19 07/08/19 22:00 02:07 Temperature 99.5 F Pulse Rate 91 H 82 Pulse Rate [ 91 H Apical] Pulse Rate [ 91 H From Monitor] Respiratory 18 18 Rate Blood Pressure 117/52 O2 Sat by Pulse 98 96 Oximetry General appearance: Present: no acute distress, well-nourished - EENT Eyes: PERRL, EOM intact ENT: hearing intact, clear oral mucosa Ears: bilateral: normal - Neck Neck: supple, normal ROM - Respiratory Respiratory effort: normal Respiratory: bilateral: CTA - Breasts Breasts: normal - Cardiovascular Heart rate: 78 Rhythm: regular Heart Sounds: Present: S1 & S2. Absent: gallop, rub Extremities: pulses intact, No edema, normal color, Full ROM - Gastrointestinal General gastrointestinal: Present: soft, non-tender, non-distended, normal bowel sounds - Genitourinary Male genitourinary: normal - Integumentary Integumentary: clear, warm, dry - Musculoskeletal Musculoskeletal: 1, strength equal bilaterally - Neurologic Neurologic: moves all extremities - Psychiatric Psychiatric: memory intact, appropriate mood/affect, intact judgment & insight - Labs CBC & Chem 7: 07/07/19 05:47 07/08/19 04:12 Labs: Abnormal lab results 07/07/19 07/07/19 07/07/19 Range/Units 11:11 16:27 21:57 Chloride (98-107) mmol/L BUN (9-20) mg/dL Glucose (75-100) mg/dL POC Glucose 174 H 157 H 134 H (70-105) Phosphorus (2.5-4.5) mg/dL 07/08/19 07/08/19 Range/Units 04:12 07:20 Chloride 113.3 H (98-107) mmol/L BUN 22 H (9-20) mg/dL Glucose 152 H (75-100) mg/dL POC Glucose 167 H (70-105) Phosphorus 1.90 L D (2.5-4.5) mg/dL
[2019-07-08] MEDS: AD OINTMENT TP SCH (09:03)
[2019-07-08] MEDS: HEPARIN SUB-Q SCH (09:03)
[2019-07-08] MEDS: SODIUM CHLORIDE FLUSH SYRINGE 10 ML IV SCH (09:03)
--- NOTE | 2019-07-08 09:13 | Progress Note ---
Assessment and Plan 1. Acute kidney injury: Vasomotor WILLIAM in the setting of hypotension. Renal US negative for obstructive uropathy. Renal function is better. Monitor renal function. Avoid nephrotoxic agents. 2. FEN: Anion gap MA, improved. Replete Phos. Monitor lytes. 3. Hypoglycemia: Monitor. 4. H/o CHF. 5. Normochromic Anemia: POA. Monitor H/H. Subjective Date of service: 07/08/19 Principal diagnosis: Persistent Hypoglycemia and RLE cellulitis Interval history: Patient was seen and examined at the bedside. Doing ok. Objective - Vital Signs Vital signs: Vital Signs - 12hr 07/07/19 07/08/19 07/08/19 22:00 02:07 07:12 Temperature 99.5 F 98.0 F Pulse Rate 91 H 82 87 Pulse Rate [ 91 H Apical] Pulse Rate [ 91 H From Monitor] Respiratory 18 18 20 Rate Blood Pressure 117/52 119/57 O2 Sat by Pulse 98 96 95 Oximetry - General Appearance General appearance: well-developed, well-nourished, appears stated age, other (no distress) EENT: ATNC, PERRL, hearing intact, vision intact Neck: supple Respiratory: Present: Clear to Ascultation Cardiology: regular, S1S2, no murmurs Gastrointestinal: normoactive bowel sounds, no tenderness, no distended Integumentary: chronic venous stasis, other (R leg dressing) Neurologic: no focal deficit, no asterixis, alert and oriented x3 Musculoskeletal: other (no edema) - Lab 07/07/19 05:47 07/08/19 04:12 Most recent lab results Calcium 8.5 mg/dL (8.4-10.2) 07/08/19 04:12 Phosphorus 1.90 mg/dL (2.5-4.5) L D 07/08/19 04:12 Magnesium 1.80 mg/dL (1.7-2.3) 07/07/19 05:47 150.9 mg/dL (0.1-20.0) H 07/05/19 22:30 36 mmol/L 07/05/19 22:30 Medications & Allergies - Medications Allergies/Adverse Reactions: Allergies No Known Allergies Allergy (Verified 07/05/19 11:07) Home Medications: Home Medications Medication Instructions Recorded Confirmed Last Taken Type ALBUTEROL NEB's [Proventil] 2.5 mg IH BID 07/06/19 07/06/19 07/03/19 15:00 History Albuterol Sulfate [Proventil Hfa] 6.7 gm IH BID PRN 07/06/19 07/06/19 Unknown History Aspirin EC [Halfprin EC] 81 mg PO HS 07/06/19 07/06/19 07/03/19 21:00 History Carvedilol [Coreg] 6.25 mg PO BID 07/06/19 07/06/19 Unknown History Cilostazol [Pletal] 50 mg PO BID 07/06/19 07/06/19 07/03/19 21:00 History Furosemide [Lasix TAB] 40 mg PO QDAY 07/06/19 07/06/19 Unknown History Losartan Potassium 100 mg PO DAILY 07/06/19 07/06/19 Unknown History Pravastatin Sodium [Pravastatin] 40 mg PO HS 07/06/19 07/06/19 07/03/19 21:00 History Simvastatin 20 mg PO HS 07/06/19 07/06/19 07/03/19 21:00 History Sitagliptin Phosphate [Januvia] 100 mg PO DAILY 07/06/19 07/06/19 07/03/19 09:00 History Tamsulosin [Flomax] 0.4 mg PO HS 07/06/19 07/06/19 07/03/19 21:00 History amLODIPine 10 mg PO DAILY 07/06/19 07/06/19 Unknown History Active Medications: Generic Name Dose Route Start Last Admin Trade Name Freq PRN Reason Stop Dose Admin Acetaminophen 650 mg 07/05/19 13:44 07/06/19 07:25 Tylenol PO 650 mg Q4H PRN Administration Pain MILD(1-3)/Fever >100.5/GORDILLO Albuterol 2.5 mg 07/05/19 13:44 Proventil IH Q4HRT PRN Shortness Of Breath Dextrose 25 gm 07/06/19 11:28 07/06/19 22:23 D50w (25gm) Vial IV 25 gm PRN PRN Administration HYPOGLYCEMIA Heparin Sodium (Porcine) 5,000 unit 07/05/19 22:00 07/08/19 09:03 Heparin SUB-Q 5,000 unit Q12HR AWA Administration Sodium Chloride 1,000 mls @ 75 mls/hr 07/06/19 11:00 07/07/19 22:12 Nacl 0.9% 1000 Ml IV 75 mls/hr DIRECT AWA Administration Ondansetron HCl 4 mg 07/05/19 13:44 Zofran IV Q8H PRN Nausea And Vomiting Sodium Chloride 10 ml 07/05/19 22:00 07/08/19 09:03 Sodium Chloride Flush Syringe 10 Ml IV Not Given BID AWA Sodium Chloride 10 ml 07/05/19 13:44 Sodium Chloride Flush Syringe 10 Ml IV PRN PRN LINE FLUSH Vitamin A/Vitamin D 1 applic 07/07/19 14:00 07/08/19 09:03 Ad Ointment TP 1 applic QDAY AWA Administration
[2019-07-08] MEDS ORDERED: KPHOS 30 MMOL in NACL 0.9% 500 ML 500 ML IV ONE (10:00)
--- NOTE | 2019-07-08 12:49 | Discharge Summary ---
Providers - Providers Date of Admission: 07/05/19 13:44 Attending physician: REED PAUL MD 07/05/19 16:03 Consult to Physician [CONS] Routine Comment: spoke to dr. hancock/ prim[facility] Consulting Provider: RENATA HANCOCK Physician Instructions: Reason For Exam: WILLIAM 07/05/19 16:05 Consult to Wound/ET Nurse [CONS] Routine Reason For Exam: wound eval 07/05/19 20:14 Physical Therapy Evaluation and Treat [CONS] Routine Comment: Reason For Exam: debility/weakness 07/06/19 11:14 Consult to Dietitian/Nutrition [CONS] Stat Physician Instructions: Reason For Exam: wounds Reason for Consult: Pt needs oral supplement Primary care physician: YU LYON Hospitalization Condition: Fair Hospital course: Functional quadriplegia Severe malnutrition (1) Cellulitis Current Visit: Yes Status: Acute Qualifiers: Site of cellulitis of extremity: lower extremity Laterality: left Plan to address problem: CT to BLE, wound care consulted, IV antibiotic therapy x 1 dose due to renal failure, CBC, CMP, supportive care, D/c on oral aabz (2) WILLIAM (acute kidney injury) Current Visit: Yes Status: Acute Plan to address problem: Nephrology consulted in ED, strict I/O,daily weight, monitor uop q shift, avoid nephrotoxic agents, renal ultrasound, urine electrolytes. Bun/cr----20/0.8 (3) UTI (urinary tract infection) Current Visit: Yes Status: Acute Qualifiers: Encounter type: initial encounter Plan to address problem: IV antibiotic therapy, urinalysis, supportive care, CBC, (4) Debility Current Visit: Yes Status: Acute Plan to address problem: PT consulted, supportive care. (5) Hypoglycemia Current Visit: Yes Status: Acute Plan to address problem: Dextrose drip, serial glucose monitoring, supportive care, hold antihyperglycemic medication overnight. Glucagon IM x1 (6) DVT prophylaxis Current Visit: Yes Status: Acute Plan to address problem: SCD to BLE while in bed, prophylactic heparin Disposition: DC/TX-06 HOME UNDER [facility] Time spent for discharge: 33 mins Core Measure Documentation - Palliative Care Palliative Care/ Comfort Measures: Not Applicable - Core Measures Any of the following diagnoses?: none Exam - Constitutional Vitals: Temp Pulse Resp BP Pulse Ox 98.0 F 80 20 119/57 95 07/08/19 07:12 07/08/19 09:43 07/08/19 07:12 07/08/19 07:12 07/08/19 09:43 General appearance: Present: no acute distress, well-nourished - EENT Eyes: Present: PERRL ENT: hearing intact, clear oral mucosa - Neck Neck: Present: supple, normal ROM - Respiratory Respiratory effort: normal Respiratory: bilateral: CTA - Cardiovascular Heart Sounds: Present: S1 & S2. Absent: rub, click - Extremities Extremities: pulses symmetrical, No edema Peripheral Pulses: within normal limits - Abdominal General gastrointestinal: Present: soft, non-tender, non-distended, normal bowel sounds Male genitourinary: Present: normal - Integumentary Integumentary: Present: clear, warm, dry - Musculoskeletal Musculoskeletal: gait normal, strength equal bilaterally - Psychiatric Psychiatric: appropriate mood/affect, intact judgment & insight - Neurologic Neurologic: CNII-XII intact, moves all extremities Plan Follow up with: PRIMARY CARE, [Referring] - 3-5 Days Prescriptions: Vitamin A&D [Ad Ointment] 1 applic TP QDAY #1 tube Amoxicillin/Potassium Clav [Augmentin 875-125 Tablet] 1 each PO BID #10 tablet Metoprolol [Lopressor TAB] 50 mg PO BID #60 tablet
[2019-07-08 15:26] VITALS: BP 106/47
== END 2019-07-08 18:20 | disposition home health service (06) | DRG 682 ==
LOC: ED 10:47 → 2B-ACE 13:44
PROVIDERS: ADMIT Internal Medicine; ATTEND Internal Medicine
DX: N17.9 Acute kidney failure, unspecified (principal); E43 Unspecified severe protein-calorie malnutrition; R53.2 Functional quadriplegia; L03.115 Cellulitis of right lower limb; N39.0 Urinary tract infection, site not specified; E87.2 Acidosis; L03.116 Cellulitis of left lower limb; E86.9 Volume depletion, unspecified; E11.649 Type 2 diabetes mellitus with hypoglycemia without coma; I48.91 Unspecified atrial fibrillation; D64.89 Other specified anemias; F03.90 Unspecified dementia, unspecified severity, without behavioral disturbance, psychotic disturbance, mood disturbance, and anxiety; I25.10 Atherosclerotic heart disease of native coronary artery without angina pectoris; E78.5 Hyperlipidemia, unspecified; I50.9 Heart failure, unspecified; I11.0 Hypertensive heart disease with heart failure; E11.51 Type 2 diabetes mellitus with diabetic peripheral angiopathy without gangrene; I95.9 Hypotension, unspecified; D64.9 Anemia, unspecified; Z95.810 Presence of automatic (implantable) cardiac defibrillator; Z74.01 Bed confinement status
CPT/HCPCS: 36415; 71045; 76770; 80048; 80053; 80061; 80320; 81001; 82140; 82271; 82550; 82570; 82947; 82962; 83735; 83970; 84100; 84300; 84439; 84443; 84484; 85014; 85018; 85025; 87040; 87086; 93005; 93010; 96365; 96372; 96375; G0378; A6250; G0480; J1610; J1644; J2405; J3370; J7030; J7040

== ENCOUNTER 2019-07-19 06:37 | Inpatient (IN) | payer MEDICARE ==
[2019-07-19] MEDS ORDERED: DEXTROSE 50% IN WATER (25GM) 50 ML SYRINGE IV ONE (06:57)
[2019-07-19] MEDS ORDERED: DEXTROSE 5% IN WATER 1,000 ML IV SCH (07:00)
[2019-07-19] MEDS ORDERED: DEXTROSE 5% IN WATER 1,000 ML IV ONE (07:01)
--- NOTE | 2019-07-19 07:06 | Emergency Department Report ---
ED Altered Mental Status HPI - General Stated Complaint: HYPOGLYCEMIA Time Seen by Provider: 07/19/19 06:53 - History of Present Illness Initial Comments: Patient is a 84 years old male with history of hypertension, diabetes, dementia, very debilitated and very well bedridden. Patient brought to the emergency room via EMS for evaluation of decreased responsiveness. EMS stated that patient was unresponsive and drooling on the right side of his mouth. EMS stated that patient initial blood glucose was 22. Patient given dextrose 5% and patient immediately started waking up. Patient had similar admission beginning of this month. Patient also have a right leg cellulitis. MD Complaint: altered mental status, decreased responsiveness -: This morning - Related Data Home Medications Medication Instructions Recorded Confirmed Last Taken ALBUTEROL NEB's [Proventil 0.083% 2.5 mg IH BID 07/06/19 07/06/19 07/03/19 15:00 NEBS] Albuterol Sulfate [Proventil Hfa] 6.7 gm IH BID PRN 07/06/19 07/06/19 Unknown Aspirin EC [Halfprin EC] 81 mg PO HS 07/06/19 07/06/19 07/03/19 21:00 Cilostazol [Pletal] 50 mg PO BID 07/06/19 07/06/19 07/03/19 21:00 Pravastatin Sodium [Pravastatin] 40 mg PO HS 07/06/19 07/06/19 07/03/19 21:00 Tamsulosin [Flomax] 0.4 mg PO HS 07/06/19 07/06/19 07/03/19 21:00 Previous Rx's Medication Instructions Recorded Last Taken Type Amoxicillin/Potassium Clav 1 each PO BID #10 tablet 07/08/19 Unknown Rx [Augmentin 875-125 Tablet] Metoprolol [Lopressor TAB] 50 mg PO BID #60 tablet 07/08/19 Unknown Rx Vitamin A&D [Ad Ointment] 1 applic TP QDAY #1 tube 07/08/19 Unknown Rx Allergies Allergy/AdvReac Type Severity Reaction Status Date / Time No Known Allergies Allergy Verified 07/05/19 11:07 ED Review of Systems ROS: Stated complaint: HYPOGLYCEMIA Other details as noted in HPI Comment: All other systems reviewed and negative Constitutional: denies: chills, fever Respiratory: denies: cough, shortness of breath, SOB with exertion, wheezing Cardiovascular: denies: chest pain, palpitations Gastrointestinal: denies: abdominal pain, nausea, vomiting, diarrhea, constipation, hematemesis, melena, hematochezia Genitourinary: denies: urgency, dysuria Musculoskeletal: denies: back pain Neurological: weakness (generalized). denies: headache, numbness, paresthesias, confusion ED Past Medical Hx - Past Medical History Hx Hypertension: Yes Hx Diabetes: Yes Hx Liver Disease: No Hx Sickle Cell Disease: No Hx Arthritis: Yes (Rt hip) Additional medical history: defib. - Social History Smoking Status: Former Smoker - Medications Home Medications: Home Medications Medication Instructions Recorded Confirmed Last Taken Type ALBUTEROL NEB's [Proventil 0.083% 2.5 mg IH BID 07/06/19 07/06/19 07/03/19 15:00 History NEBS] Albuterol Sulfate [Proventil Hfa] 6.7 gm IH BID PRN 07/06/19 07/06/19 Unknown History Aspirin EC [Halfprin EC] 81 mg PO HS 07/06/19 07/06/19 07/03/19 21:00 History Cilostazol [Pletal] 50 mg PO BID 07/06/19 07/06/19 07/03/19 21:00 History Pravastatin Sodium [Pravastatin] 40 mg PO HS 07/06/19 07/06/19 07/03/19 21:00 History Tamsulosin [Flomax] 0.4 mg PO HS 07/06/19 07/06/19 07/03/19 21:00 History Amoxicillin/Potassium Clav 1 each PO BID #10 tablet 07/08/19 Unknown Rx [Augmentin 875-125 Tablet] Metoprolol [Lopressor TAB] 50 mg PO BID #60 tablet 07/08/19 Unknown Rx Vitamin A&D [Ad Ointment] 1 applic TP QDAY #1 tube 07/08/19 Unknown Rx ED Physical Exam - General General appearance: alert, in no apparent distress - Head Head exam: Present: atraumatic, normocephalic, normal inspection - Eye Eye exam: Present: normal appearance - ENT ENT exam: Present: normal exam, normal orophraynx, mucous membranes moist - Neck Neck exam: Present: normal inspection, full ROM. Absent: tenderness, meningismus, lymphadenopathy, thyromegaly - Respiratory Respiratory exam: Present: normal lung sounds bilaterally - Cardiovascular Cardiovascular Exam: Present: regular rate, normal rhythm, normal heart sounds - GI/Abdominal GI/Abdominal exam: Present: soft, normal bowel sounds. Absent: distended, tenderness, guarding, rebound, rigid, organomegaly, mass, bruit, pulsatile mass, hernia - Extremities Exam Extremities exam: Present: full ROM, normal capillary refill, other. Absent: pedal edema, calf tenderness - Back Exam Back exam: Present: normal inspection, full ROM. Absent: CVA tenderness (R), CVA tenderness (L), muscle spasm, paraspinal tenderness, vertebral tenderness - Assessment Assessment Interval: Baseline - Level of Consciousness 1a. Level of Consciousness: alert/keenly responsive - LOC Questions 1b. LOC Questions: answers both correctly - LOC Command 1c. LOC Commands: performs tasks correctly - Best Gaze 2. Best Gaze: normal - Visual 3. Visual: no visual loss - Facial Palsy 4. Facial Palsy: normal symmetrical movement - Motor Arm 5a. Motor Arm Left: no drift 5b. Motor Arm Right: no drift - Motor Leg 6a. Motor Leg Left: no drift 6b. Motor Leg Right: no drift - Limb Ataxia 7. Limb Ataxia: absent - Sensory 8. Sensory: normal - Best Language 9. Best Language: no aphasia - Dysarthria 10. Dysarthria: normal - Extinction and Inattention 11. Extinction/Inattention: no abnormality - Scoring Total Score: 0 Stroke Severity: No Stroke Symptoms ED Course Vital Signs 07/19/19 07:27 Temperature 98.2 F Pulse Rate 98 H Respiratory 18 Rate Blood Pressure 134/60 O2 Sat by Pulse 98 Oximetry - Lab Data Result diagrams: 07/19/19 07:25 07/19/19 07:25 Lab Results 07/19/19 07/19/19 07/19/19 Range/Units 07:04 07:25 07:25 WBC 11.9 H (4.5-11.0) K/mm3 RBC 2.80 L (3.65-5.03) M/mm3 Hgb 7.8 L (11.8-15.2) gm/dl Hct 23.6 L (35.5-45.6) % MCV 84 (84-94) fl MCH 28 (28-32) pg MCHC 33 (32-34) % RDW 15.8 H (13.2-15.2) % Plt Count 452 H (140-440) K/mm3 Lymph % (Auto) 5.2 L (13.4-35.0) % [place] % (Auto) 5.5 (0.0-7.3) % Eos % (Auto) 1.0 (0.0-4.3) % Baso % (Auto) 0.4 (0.0-1.8) % Lymph # 0.6 L (1.2-5.4) K/mm3 [place] # 0.7 (0.0-0.8) K/mm3 Eos # 0.1 (0.0-0.4) K/mm3 Baso # 0.0 (0.0-0.1) K/mm3 Seg Neutrophils % 87.9 H (40.0-70.0) % Seg Neutrophils # 10.4 H (1.8-7.7) K/mm3 PT 15.3 H (12.2-14.9) Sec. INR 1.24 H (0.87-1.13) APTT 29.5 (24.2-36.6) Sec. Sodium (137-145) mmol/L Potassium (3.6-5.0) mmol/L Chloride (98-107) mmol/L Carbon Dioxide (22-30) mmol/L Anion Gap mmol/L BUN (9-20) mg/dL Creatinine (0.8-1.5) mg/dL Estimated GFR ml/min BUN/Creatinine Ratio % Glucose (75-100) mg/dL POC Glucose 190 H (70-105) Lactic Acid (0.7-2.0) mmol/L Calcium (8.4-10.2) mg/dL Total Bilirubin (0.1-1.2) mg/dL Direct Bilirubin (0-0.2) mg/dL Indirect Bilirubin mg/dL AST (5-40) units/L ALT (7-56) units/L Alkaline Phosphatase (35-129) units/L Ammonia (25-60) umol/L Troponin T (0.00-0.029) ng/mL Total Protein (6.3-8.2) g/dL Albumin (3.9-5) g/dL Albumin/Globulin Ratio % Triglycerides (2-149) mg/dL Cholesterol (50-199) mg/dL LDL Cholesterol Direct (50-130) mg/dL HDL Cholesterol (40-59) mg/dL Cholesterol/HDL Ratio % Urine Color (Yellow) Urine Turbidity (Clear) Urine pH (5.0-7.0) Ur Specific [place] (1.003-1.030) Urine Protein (Negative) mg/dL Urine Glucose (UA) (Negative) mg/dL Urine Ketones (Negative) mg/dL Urine Blood (Negative) Urine Nitrite (Negative) Urine Bilirubin (Negative) Urine Urobilinogen (<2.0) mg/dL Ur Leukocyte Esterase (Negative) Urine WBC (Auto) (0.0-6.0) /HPF Urine RBC (Auto) (0.0-6.0) /HPF U Epithel Cells (Auto) (0-13.0) /HPF Urine Bacteria (Auto) (Negative) /HPF Hyaline Casts /LPF Urine Mucus /HPF Plasma/Serum Alcohol (0-0.07) % 07/19/19 07/19/19 07/19/19 Range/Units 07:25 07:25 07:25 WBC (4.5-11.0) K/mm3 RBC (3.65-5.03) M/mm3 Hgb (11.8-15.2) gm/dl Hct (35.5-45.6) % MCV (84-94) fl MCH (28-32) pg MCHC (32-34) % RDW (13.2-15.2) % Plt Count (140-440) K/mm3 Lymph % (Auto) (13.4-35.0) % [place] % (Auto) (0.0-7.3) % Eos % (Auto) (0.0-4.3) % Baso % (Auto) (0.0-1.8) % Lymph # (1.2-5.4) K/mm3 [place] # (0.0-0.8) K/mm3 Eos # (0.0-0.4) K/mm3 Baso # (0.0-0.1) K/mm3 Seg Neutrophils % (40.0-70.0) % Seg Neutrophils # (1.8-7.7) K/mm3 PT (12.2-14.9) Sec. INR (0.87-1.13) APTT (24.2-36.6) Sec. Sodium 136 L (137-145) mmol/L Potassium 3.0 L (3.6-5.0) mmol/L Chloride 98.4 (98-107) mmol/L Carbon Dioxide 23 (22-30) mmol/L Anion Gap 18 mmol/L BUN 23 H (9-20) mg/dL Creatinine 1.0 (0.8-1.5) mg/dL Estimated GFR > 60 ml/min BUN/Creatinine Ratio 23 % Glucose 92 (75-100) mg/dL POC Glucose (70-105) Lactic Acid 1.30 (0.7-2.0) mmol/L Calcium 8.1 L (8.4-10.2) mg/dL Total Bilirubin (0.1-1.2) mg/dL Direct Bilirubin (0-0.2) mg/dL Indirect Bilirubin mg/dL AST (5-40) units/L ALT (7-56) units/L Alkaline Phosphatase (35-129) units/L Ammonia (25-60) umol/L Troponin T 0.051 H (0.00-0.029) ng/mL Total Protein (6.3-8.2) g/dL Albumin (3.9-5) g/dL Albumin/Globulin Ratio % Triglycerides 63 (2-149) mg/dL Cholesterol 93 (50-199) mg/dL LDL Cholesterol Direct 49 L (50-130) mg/dL HDL Cholesterol 46 (40-59) mg/dL Cholesterol/HDL Ratio 2.02 % Urine Color (Yellow) Urine Turbidity (Clear) Urine pH (5.0-7.0) Ur Specific [place] (1.003-1.030) Urine Protein (Negative) mg/dL Urine Glucose (UA) (Negative) mg/dL Urine Ketones (Negative) mg/dL Urine Blood (Negative) Urine Nitrite (Negative) Urine Bilirubin (Negative) Urine Urobilinogen (<2.0) mg/dL Ur Leukocyte Esterase (Negative) Urine WBC (Auto) (0.0-6.0) /HPF Urine RBC (Auto) (0.0-6.0) /HPF U Epithel Cells (Auto) (0-13.0) /HPF Urine Bacteria (Auto) (Negative) /HPF Hyaline Casts /LPF Urine Mucus /HPF Plasma/Serum Alcohol < 0.01 (0-0.07) % 07/19/19 07/19/19 07/19/19 Range/Units 07:25 07:25 08:20 WBC (4.5-11.0) K/mm3 RBC (3.65-5.03) M/mm3 Hgb (11.8-15.2) gm/dl Hct (35.5-45.6) % MCV (84-94) fl MCH (28-32) pg MCHC (32-34) % RDW (13.2-15.2) % Plt Count (140-440) K/mm3 Lymph % (Auto) (13.4-35.0) % [place] % (Auto) (0.0-7.3) % Eos % (Auto) (0.0-4.3) % Baso % (Auto) (0.0-1.8) % Lymph # (1.2-5.4) K/mm3 [place] # (0.0-0.8) K/mm3 Eos # (0.0-0.4) K/mm3 Baso # (0.0-0.1) K/mm3 Seg Neutrophils % (40.0-70.0) % Seg Neutrophils # (1.8-7.7) K/mm3 PT (12.2-14.9) Sec. INR (0.87-1.13) APTT (24.2-36.6) Sec. Sodium (137-145) mmol/L Potassium (3.6-5.0) mmol/L Chloride (98-107) mmol/L Carbon Dioxide (22-30) mmol/L Anion Gap mmol/L BUN (9-20) mg/dL Creatinine (0.8-1.5) mg/dL Estimated GFR ml/min BUN/Creatinine Ratio % Glucose (75-100) mg/dL POC Glucose (70-105) Lactic Acid (0.7-2.0) mmol/L Calcium (8.4-10.2) mg/dL Total Bilirubin 0.40 (0.1-1.2) mg/dL Direct Bilirubin < 0.2 (0-0.2) mg/dL Indirect Bilirubin 0.2 mg/dL AST 15 (5-40) units/L ALT 6 L (7-56) units/L Alkaline Phosphatase 113 (35-129) units/L Ammonia 48.0 (25-60) umol/L Troponin T (0.00-0.029) ng/mL Total Protein 7.6 (6.3-8.2) g/dL Albumin 2.6 L (3.9-5) g/dL Albumin/Globulin Ratio 0.5 % Triglycerides (2-149) mg/dL Cholesterol (50-199) mg/dL LDL Cholesterol Direct (50-130) mg/dL HDL Cholesterol (40-59) mg/dL Cholesterol/HDL Ratio % Urine Color Yellow (Yellow) Urine Turbidity Clear (Clear) Urine pH 5.0 (5.0-7.0) Ur Specific [place] 1.013 (1.003-1.030) Urine Protein <15 mg/dl (Negative) mg/dL Urine Glucose (UA) Neg (Negative) mg/dL Urine Ketones Neg (Negative) mg/dL Urine Blood Sm (Negative) Urine Nitrite Neg (Negative) Urine Bilirubin Neg (Negative) Urine Urobilinogen < 2.0 (<2.0) mg/dL Ur Leukocyte Esterase Neg (Negative) Urine WBC (Auto) 3.0 (0.0-6.0) /HPF Urine RBC (Auto) 3.0 (0.0-6.0) /HPF U Epithel Cells (Auto) 2.0 (0-13.0) /HPF Urine Bacteria (Auto) 1+ (Negative) /HPF Hyaline Casts 2 /LPF Urine Mucus Few /HPF Plasma/Serum Alcohol (0-0.07) % - EKG Data -: EKG Interpreted by [place] EKG shows normal: sinus rhythm Rate: normal Interpretation: no acute changes - Radiology Data Radiology results: report reviewed - Medical Decision Making Patient is a 84 years old male with history of hypertension, diabetes, dementia, very debilitated and very well bedridden. Patient brought to the emergency room via EMS for evaluation of decreased responsiveness. EMS stated that patient was unresponsive and drooling on the right side of his mouth. EMS stated that patient initial blood glucose was 22. Patient given dextrose 5% and patient immediately started waking up. Patient had similar admission beginning of this month. Patient also have a right leg cellulitis. Patient continued on dextrose 5%. Given a meal tray. Patient remained alert and oriented, in no acute distress. CT brain is negative for acute finding. Labs reviewed and shows slightly elevated blood cells and is most likely due to his old on the right lower extremity. Patient received 1 dose of vancomycin. Discussed the patient was , she advised to admit the patient to Dr. Jimenez. Critical Care Time: Yes Critical care time in (mins) excluding proc time.: 30 Critical care attestation.: If time is entered above; I have spent that time in minutes in the direct care of this critically ill patient, excluding procedure time. ED Disposition Clinical Impression: Hypoglycemia, Cellulitis, Elevated troponin Disposition: -09 OP ADMIT IP TO THIS HOSP Is pt being admited?: Yes Condition: Stable Referrals: ANGEL REDDY MD [Primary Care Provider] - 3-5 Days
[2019-07-19 07:54] LABS: Basophils % (Auto) 0.4 % (0.0-1.8); Eosinophils # (Auto) 0.1 K/mm3 (0.0-0.4); Hematocrit 23.6 % (35.5-45.6); Hemoglobin 7.8 gm/dl (11.8-15.2); Lymphocytes # (Auto) 0.6 K/mm3 (1.2-5.4); Lymphocytes % (Auto) 5.2 % (13.4-35.0); Mean Corpuscular HGB Conc 33 % (32-34); Mean Corpuscular Volume 84 fl (84-94); Monocytes # (Auto) 0.7 K/mm3 (0.0-0.8); Monocytes % (Auto) 5.5 % (0.0-7.3); Platelet Count 452 K/mm3 (140-440); Red Cell Distribution Width 15.8 % (13.2-15.2)
[2019-07-19 07:59] LABS: Alanine Aminotransferase 6 units/L (7-56); Albumin 2.6 g/dL (3.9-5)
[2019-07-19 08:02] LABS: BUN/Creatinine Ratio 23; Blood Urea Nitrogen 23 mg/dL (9-20); Calcium 8.1 mg/dL (8.4-10.2); Hemolysis Index 0
[2019-07-19 08:04] LABS: INR 1.24 (0.87-1.13)
[2019-07-19 08:05] LABS: Bilirubin,Direct < 0.2 mg/dL (0-0.2)
--- NOTE | 2019-07-19 08:15 | Cat Scan Report ---
CT HEAD WITHOUT CONTRAST INDICATION: Altered Mental Status. TECHNIQUE: All CT scans at this location are performed using CT dose reduction for ALARA by means of automated e xposure control. COMPARISON: None available. FINDINGS: HEMORRHAGE: None. EXTRA-AXIAL SPACES: Normal in size and morphology for the patient's age. VENTRICULAR SYSTEM: Normal in size and morphology for the patient's age. BRAIN PARENCHYMA: No acute findings. 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 MIDLINE SHIFT OR HERNIATION: None. ORBITS: Normal as visualized. SOFT TISSUES OF HEAD: Normal. CALVARIUM: Normal. VISUALIZED PARANASAL SINUSES AND MASTOID AIR CELLS: Clear. ADDITIONAL FINDINGS: None. IMPRESSION: 1. No acute intracranial abnormality. Signer Name: Adarsh Monroy MD Signed: 07/19/2019 8:11 AM Workstation Name: [id number]
[2019-07-19 08:32] LABS: Bacteria,Urine 1+ /HPF (Negative); Bilirubin,Urine NEG (Negative); Blood,Urine SM (Negative); Color,Urine Yellow (Yellow); Hyaline Casts,Urine 2 /LPF; Mucus,Urine FEW /HPF; Protein,Urine <15 mg/dL mg/dL (Negative); Urobilinogen,Urine < 2.0 mg/dL (<2.0)
[2019-07-19 08:33] LABS: Chol/HDL Ratio 2.02 %; HDL Cholesterol 46 mg/dL (40-59); LDL Cholesterol,Direct 49 mg/dL (50-130)
[2019-07-19 08:36] LABS: Partial Thromboplastin Time 29.5 Sec. (24.2-36.6)
[2019-07-19] MEDS ORDERED: VANCOMYCIN/NS 1 GM/250 ML 1 GM/250 ML BAG IV ONE (08:37)
--- NOTE | 2019-07-19 08:43 | XRay Report ---
CHEST 1 VIEW INDICATION: Altered Mental Status. COMPARISON: 07/05/2019. FINDINGS: Support devices: Cardiac lead is unchanged. Heart: Normal. Lungs/Pleura: No acute pulmonary or pleural findings. IMPRESSION: 1. No acute findings. Signer Name: Adarsh Monroy MD Signed: 07/19/2019 8:39 AM Workstation Name: [id number]
--- NOTE | 2019-07-19 09:35 | History and Physical Report ---
History of Present Illness Date of examination: 07/19/19 Chief complaint: Confused History of present illness: Patient is a 84 yo man with a history of hypertension, DM type 2 not known to be on medications and functional quadriplegia/bed bound state who presents to [facility] with AMS. Patient became confused this morning associated with slurred speech and a period of unresponsiveness. Blood glucose via fingerstick was 22 when EMS checked, they gave him 1 amp of Dextrose and blood sugars increased to 190. Patient brought to the emergency room via EMS for evaluation of decreased responsiveness. EMS stated that patient was unresponsive and drooling on the right side of his mouth. After Dextrose given, patient immediately started waking up. Patient had similar admission beginning of this month. Patient also have a right leg cellulitis and discharged on Augmentin. He was admitted here on 07/05/19 with similar presentation of hypoglycemia and found to have UTI, right foot infection, ARF. He was just discharged on 07/08/19. PMH: as hpi PSH: AICD SH: he denies tob/etoh/illegal drug use FH: he denies hypertension ROS: Constitutional: denies: fever ENT: denies: throat or neck pain Respiratory: denies: cough, shortness of breath Cardiovascular: denies: chest pain Endocrine: denies unexplained weight loss or gain Gastrointestinal: denies: abdominal pain, nausea Genitourinary: denies: dysuria Rectal: denies no incontinence, no bleeding, no itching, no discharge Musculoskeletal: +swelling, myaglia, muscle weakness Skin: + right foot and leg infection Neurological: denies severe headache Hematological/Lymphatic: denies: easy bleeding or easy bruising Allergic/Immunologic: no urticaria, no allergic rhinitis, no anaphylaxis Psych: denies sadness or hopelessness, SI/HI Medications and Allergies Allergies Allergy/AdvReac Type Severity Reaction Status Date / Time No Known Allergies Allergy Verified 07/05/19 11:07 Home Medications Medication Instructions Recorded Confirmed Last Taken Type ALBUTEROL NEB's [Proventil 0.083% 2.5 mg IH BID 07/06/19 07/06/19 07/03/19 15:00 History NEBS] Albuterol Sulfate [Proventil Hfa] 6.7 gm IH BID PRN 07/06/19 07/06/19 Unknown History Aspirin EC [Halfprin EC] 81 mg PO HS 07/06/19 07/06/19 07/03/19 21:00 History Cilostazol [Pletal] 50 mg PO BID 07/06/19 07/06/19 07/03/19 21:00 History Pravastatin Sodium [Pravastatin] 40 mg PO HS 07/06/19 07/06/19 07/03/19 21:00 History Tamsulosin [Flomax] 0.4 mg PO HS 07/06/19 07/06/19 07/03/19 21:00 History Amoxicillin/Potassium Clav 1 each PO BID #10 tablet 07/08/19 Unknown Rx [Augmentin 875-125 Tablet] Metoprolol [Lopressor TAB] 50 mg PO BID #60 tablet 07/08/19 Unknown Rx Vitamin A&D [Ad Ointment] 1 applic TP QDAY #1 tube 07/08/19 Unknown Rx Active Meds: Active Medications Dextrose (D5w) 1,000 mls @ 150 mls/hr IV DIRECT AWA Vancomycin HCl (Vancomycin/Ns 1 Gm/250 Ml) 1 gm in 250 mls @ 167.007 mls/hr IV ONCE ONE; Protocol Stop: 07/19/19 10:06 Exam - Physical Exam Narrative exam: Gen: chronically disable, acutely ill appearing, NAD, Awake, Alert, Orientated x 3 HEENT: NCAT, EOMI, PERRL, OP Clear Neck: supple, no adenopathy, no thyromegaly, no JVD CVS/Heart: RRR, normal S1S2, pulses present bilaterally Chest/Lungs: CTA B, Symmetrical chest expansion, good air entry bilaterally GI/Abdomen: soft, NTND, good bowel sounds, no guarding or rebound /Bladder: no suprapubic tenderness, no CVA or paraspinal tenderness Extermity/Skin: malordorus draining necrotic lateral right foot, also warm, erythematous circumferential redness with superficial ulcers up right renae, bilateral leg edema MSK: FROM x 4 Neuro: CN 2-12 grossly intact, no new focal deficits Psych: calm - Constitutional Vitals: Temp Pulse Resp BP Pulse Ox 98.2 F 98 H 18 134/60 98 07/19/19 07:27 07/19/19 07:27 07/19/19 07:27 07/19/19 07:27 07/19/19 07:27 Results - Labs CBC & Chem 7: 07/19/19 07:25 07/19/19 07:25 Labs: Abnormal lab results 07/19/19 07/19/19 07/19/19 Range/Units 07:04 07:25 07:25 WBC 11.9 H (4.5-11.0) K/mm3 RBC 2.80 L (3.65-5.03) M/mm3 Hgb 7.8 L (11.8-15.2) gm/dl Hct 23.6 L (35.5-45.6) % RDW 15.8 H (13.2-15.2) % Plt Count 452 H (140-440) K/mm3 Lymph % (Auto) 5.2 L (13.4-35.0) % Lymph # 0.6 L (1.2-5.4) K/mm3 Seg Neutrophils % 87.9 H (40.0-70.0) % Seg Neutrophils # 10.4 H (1.8-7.7) K/mm3 PT 15.3 H (12.2-14.9) Sec. INR 1.24 H (0.87-1.13) Sodium (137-145) mmol/L Potassium (3.6-5.0) mmol/L BUN (9-20) mg/dL POC Glucose 190 H (70-105) Calcium (8.4-10.2) mg/dL ALT (7-56) units/L Troponin T (0.00-0.029) ng/mL Albumin (3.9-5) g/dL LDL Cholesterol Direct (50-130) mg/dL 07/19/19 07/19/19 Range/Units 07:25 07:25 WBC (4.5-11.0) K/mm3 RBC (3.65-5.03) M/mm3 Hgb (11.8-15.2) gm/dl Hct (35.5-45.6) % RDW (13.2-15.2) % Plt Count (140-440) K/mm3 Lymph % (Auto) (13.4-35.0) % Lymph # (1.2-5.4) K/mm3 Seg Neutrophils % (40.0-70.0) % Seg Neutrophils # (1.8-7.7) K/mm3 PT (12.2-14.9) Sec. INR (0.87-1.13) Sodium 136 L (137-145) mmol/L Potassium 3.0 L (3.6-5.0) mmol/L BUN 23 H (9-20) mg/dL POC Glucose (70-105) Calcium 8.1 L (8.4-10.2) mg/dL ALT 6 L (7-56) units/L Troponin T 0.051 H (0.00-0.029) ng/mL Albumin 2.6 L (3.9-5) g/dL LDL Cholesterol Direct 49 L (50-130) mg/dL Assessment and Plan Patient is a 84 yo man with a history of hypertension, DM type 2 not known to be on medications and functional quadriplegia/bed bound state who presents to [facility] with AMS. Patient became confused this morning associated with slurred speech and a period of unresponsiveness. Blood glucose via fingerstick was 22 when EMS checked, they gave him 1 amp of Dextrose and blood sugars increased to 190. Patient brought to the emergency room via EMS for evaluation of decreased responsiveness. EMS stated that patient was unresponsive and drooling on the right side of his mouth. After Dextrose given, patient immediately started waking up. Patient had similar admission beginning of this month. Patient also have a right leg cellulitis and discharged on Augmentin. He was admitted here on 07/05/19 with similar presentation of hypoglycemia and found to have UTI, right f oot infection, ARF. He was just discharged on 07/08/19. Type 2 DM with hypoglycemic coma, resolved: monitor with accuchecks Wet right foot gangrene with suspected sepsis cellulitis: treat with abx, consult Vascular and Surgeon for amputation, wound care consult Acute metabolic encephalopathy due to low BG Hypoglycemia: no insulin, monitor with accuchecks, treat with Dextros Functional quadriplegia/bed bound: PT/OT Severe malnutrition: consult [employer] AICD by history: so no MRI of the foot, order ECHO and consult Cardiology Elevated troponin: consult Cardiology, Anemia, chronic: monitor CBC daily Hypokalemia: replete and recheck Hyponatremia: careful with IVFs, probably history of Cardiomyopathy with ICD, monitor bmp closely DVT ppx: difficult decision making because of anemia and leg infection full code CCT 32 minutes
[2019-07-19] MEDS ORDERED: DEXTROSE 50% IN WATER (25GM) 50 ML SYRINGE IV PRN (09:45)
[2019-07-19] MEDS ORDERED: MORPHINE 2 MG/1 ML INJ IV PRN (09:47)
[2019-07-19] MEDS ORDERED: ONDANSETRON 4 MG/2 ML INJ IV PRN (09:47)
[2019-07-19] MEDS ORDERED: POTASSIUM CHLORIDE ER 20 MEQ TAB PO ONE ×2 (09:47→10:25)
[2019-07-19] MEDS ORDERED: ACETAMINOPHEN 325 MG TAB PO PRN (09:47)
[2019-07-19] MEDS ORDERED: POLYETHYLENE GLYCOL 3350 17 GM POWDER PO PRN (09:47)
[2019-07-19] MEDS ORDERED: VANCOMYCIN 1,750 MG in SODIUM CHLORIDE 0.9% 500 ML 500 ML IV ONE (10:00)
[2019-07-19] MEDS ORDERED: VANCOMYCIN PHARMACY TO DOSE IV SCH (10:00)
[2019-07-19] MEDS ORDERED: PIPERACIL/TAZOBACTA 4.5/NS 100 4.5 GM/100 ML VIAL IV ONE (10:19)
[2019-07-19] MEDS: PIPERACIL/TAZOBACTA 4.5/NS 100 4.5 GM/100 ML VIAL IV SCH ×2 (10:20→14:38)
[2019-07-19] MEDS ORDERED: PANTOPRAZOLE 40 MG TAB PO ONE (10:25)
[2019-07-19] MEDS: PANTOPRAZOLE 40 MG TAB PO SCH (10:27)
[2019-07-19] MEDS: D5W/0.45% NACL 1,000 ML IV SCH (12:00)
[2019-07-19] MEDS: INSULIN LISPRO 100 UNIT/ML SUB-Q SCH ×3 (12:48→21:26)
--- NOTE | 2019-07-19 13:42 | Consultation ---
History of Present Illness - Reason for Consult Consult date: 07/19/19 Peripheral Vessel Disease with Right Foot Gangrene Requesting physician: EZEKIEL POWELL - History of Present Illness The patient is an 84-year-old male with a history of diabetes who presented to [facility] emergency department with hypoglycemia and mental status changes that improved with administration of dextrose. As found to have gangrene of his right foot with a foul-smelling odor. He states that he has had pain in his right foot for approximately 2 months and he has been performing dressing changes at home that is typically done by his grandchildren. He is bed bound and has not ambulated for months. He denies having any fevers or chills. He is unsure of the amount of time that the wound has had a foul odor. At home his dressings included a cream, that was prescribed to him, and dry gauze to the dressing daily. He has no additional complaints at this time. Past History Past Medical History: arthritis, CAD, COPD, diabetes, hyperlipidemia, PVD, other (congestive heart failure) Past Surgical History: Other (AICD insertion) Social history: lives with family Medications and Allergies Allergies Allergy/AdvReac Type Severity Reaction Status Date / Time No Known Allergies Allergy Verified 07/05/19 11:07 Home Medications Medication Instructions Recorded Confirmed Last Taken Type ALBUTEROL NEB's [Proventil 0.083% 2.5 mg IH BID 07/06/19 07/06/19 07/03/19 15:00 History NEBS] Albuterol Sulfate [Proventil Hfa] 6.7 gm IH BID PRN 07/06/19 07/06/19 Unknown History Aspirin EC [Halfprin EC] 81 mg PO HS 07/06/19 07/06/19 07/03/19 21:00 History Cilostazol [Pletal] 50 mg PO BID 07/06/19 07/06/19 07/03/19 21:00 History Pravastatin Sodium [Pravastatin] 40 mg PO HS 07/06/19 07/06/19 07/03/19 21:00 History Tamsulosin [Flomax] 0.4 mg PO HS 07/06/19 07/06/19 07/03/19 21:00 History Amoxicillin/Potassium Clav 1 each PO BID #10 tablet 07/08/19 Unknown Rx [Augmentin 875-125 Tablet] Metoprolol [Lopressor TAB] 50 mg PO BID #60 tablet 07/08/19 Unknown Rx Vitamin A&D [Ad Ointment] 1 applic TP QDAY #1 tube 07/08/19 Unknown Rx Active Meds: Active Medications Acetaminophen (Tylenol) 650 mg PO Q6H PRN PRN Reason: Non Cardiac Pain or Temp>100.5 Acetaminophen/Hydrocodone Bitart ([place] 5/325) 1 each PO Q4H PRN PRN Reason: Pain, Moderate (4-6) Dextrose (D50w (25gm) Syringe) 50 ml IV PRN PRN PRN Reason: Hypoglycemia Dextrose (D5w) 1,000 mls @ 150 mls/hr IV DIRECT AWA Piperacillin Sod/Tazobactam Sod (Zosyn/Ns 4.5gm/100ml) 4.5 gm in 100 mls @ 200 mls/hr IV Q8HR AWA; Protocol Last Admin: 07/19/19 10:20 Dose: 200 mls/hr Documented by: Dextrose/Sodium Chloride (D5/0.45ns) 1,000 mls @ 75 mls/hr IV DIRECT AWA Insulin Human Lispro (Humalog) 0 unit SUB-Q ACHS AWA; Protocol Last Admin: 07/19/19 12:48 Dose: Not Given Documented by: Morphine Sulfate (Morphine) 2 mg IV Q4H PRN PRN Reason: Pain , Severe (7-10) Ondansetron HCl (Zofran) 4 mg IV Q4H PRN PRN Reason: Nausea And Vomiting Pantoprazole Sodium (Protonix) 40 mg PO QDAY AWA Last Admin: 07/19/19 10:27 Dose: 40 mg Documented by: Polyethylene Glycol (Miralax [id number]) 17 gm PO QDAY PRN PRN Reason: Constipation Review of Systems All systems: negative Exam - Constitutional Vitals: Temp Pulse Resp BP Pulse Ox 97.8 F 89 19 166/70 98 07/19/19 11:28 07/19/19 12:30 07/19/19 12:30 07/19/19 11:28 07/19/19 12:30 General appearance: Present: no acute distress - Respiratory Respiratory effort: normal - Extremities Extremities: pulses intact (bilateral femoral pulses intact, palpable popliteal pulses bilaterally) Extremity abnormal: edema, ulceration (right foot with gangrene of the lateral plantar surface of the foot involving the fourth and fifth digits with foul- smelling odor), pulses diminished (no palpable pedal pulses) - Abdominal General gastrointestinal: Present: soft, non-distended Results - Labs CBC & Chem 7: 07/19/19 07:25 07/19/19 07:25 Labs: Abnormal lab results 07/19/19 07/19/19 07/19/19 Range/Units 07:04 07:25 07:25 WBC 11.9 H (4.5-11.0) K/mm3 RBC 2.80 L (3.65-5.03) M/mm3 Hgb 7.8 L (11.8-15.2) gm/dl Hct 23.6 L (35.5-45.6) % RDW 15.8 H (13.2-15.2) % Plt Count 452 H (140-440) K/mm3 Lymph % (Auto) 5.2 L (13.4-35.0) % Lymph # 0.6 L (1.2-5.4) K/mm3 Seg Neutrophils % 87.9 H (40.0-70.0) % Seg Neutrophils # 10.4 H (1.8-7.7) K/mm3 PT 15.3 H (12.2-14.9) Sec. INR 1.24 H (0.87-1.13) Sodium (137-145) mmol/L Potassium (3.6-5.0) mmol/L BUN (9-20) mg/dL POC Glucose 190 H (70-105) Calcium (8.4-10.2) mg/dL ALT (7-56) units/L Troponin T (0.00-0.029) ng/mL Albumin (3.9-5) g/dL LDL Cholesterol Direct (50-130) mg/dL 07/19/19 07/19/19 Range/Units 07:25 07:25 WBC (4.5-11.0) K/mm3 RBC (3.65-5.03) M/mm3 Hgb (11.8-15.2) gm/dl Hct (35.5-45.6) % RDW (13.2-15.2) % Plt Count (140-440) K/mm3 Lymph % (Auto) (13.4-35.0) % Lymph # (1.2-5.4) K/mm3 Seg Neutrophils % (40.0-70.0) % Seg Neutrophils # (1.8-7.7) K/mm3 PT (12.2-14.9) Sec. INR (0.87-1.13) Sodium 136 L (137-145) mmol/L Potassium 3.0 L (3.6-5.0) mmol/L BUN 23 H (9-20) mg/dL POC Glucose (70-105) Calcium 8.1 L (8.4-10.2) mg/dL ALT 6 L (7-56) units/L Troponin T 0.051 H (0.00-0.029) ng/mL Albumin 2.6 L (3.9-5) g/dL LDL Cholesterol Direct 49 L (50-130) mg/dL Assessment and Plan The patient is an 84-year-old male with diabetes and peripheral vascular disease with gangrene of the right foot. The patient does not ambulate and given his rest pain and the gangrene would benefit from an above-knee amputation to control his pain and infection. I discussed this with the patient and his response was "I am 84 years old and I am not about to let anyone cut on me". I discussed with the patient that given his gangrene this could potentially become a life-threatening situation and there is no guarantee that local wound care could control this. He expressed understanding of this and said that he would pray that wound care would manage this because he was not willing to undergo surgery. I told him I would definitely respect his wishes and that we would apply Betadine to his foot daily to attempt to control the infection.
--- NOTE | 2019-07-19 14:33 | Consultation ---
History of Present Illness - Reason for Consult Consult date: 07/19/19 Foot infection, gangrene Requesting physician: EZEKIEL POWELL - History of Present Illness The patient is a 84-year-old male with hypertension, diabetes mellitus type 2 presented to the emergency room with confusion. He was noted to have low blood glucose that resolved with 1 amp of dextrose. Patient was also noted to have a foul-smelling wound on his right foot concerning for gangrene. He was started on empiric antibiotics: Zosyn and vancomycin. Infectious diseases was consulted for additional recommendations. He was also seen by vascular surgery, patient is refusing any surgical intervention. He states that the wound on his foot has been present for several weeks and has been managing with dressings. About 2-3 days ago he also started having pain in his left heel region. Review of Systems: General: no fevers,chills or rigors HEENT: no new visual disturbance Respiratory: No cough, sputum, hemoptysis or shortness of breath Cardiovascular: No chest pain, syncope Gastrointestinal: No nausea, vomiting or diarrhea Genitourinary: No dysuria or hematuria Musculoskeletal: No new or worsening neck pain or back pain Neurologic: No headaches, seizures Hematologic: No easy bruising or bleeding Endocrine: No night sweats or acute weight loss Skin: negative for rash, jaundice Psychiatric: No suicidal or homicidal ideation Past History Past Medical History: arthritis, CAD, COPD, diabetes, hyperlipidemia, PVD, other (congestive heart failure) Past Surgical History: Other (AICD insertion) Social history: lives with family Medications and Allergies Allergies Allergy/AdvReac Type Severity Reaction Status Date / Time No Known Allergies Allergy Verified 07/05/19 11:07 Home Medications Medication Instructions Recorded Confirmed Last Taken Type ALBUTEROL NEB's [Proventil 0.083% 2.5 mg IH BID 07/06/19 07/06/19 07/03/19 15:00 History NEBS] Albuterol Sulfate [Proventil Hfa] 6.7 gm IH BID PRN 07/06/19 07/06/19 Unknown History Aspirin EC [Halfprin EC] 81 mg PO HS 07/06/19 07/06/19 07/03/19 21:00 History Cilostazol [Pletal] 50 mg PO BID 07/06/19 07/06/19 07/03/19 21:00 History Pravastatin Sodium [Pravastatin] 40 mg PO HS 07/06/19 07/06/19 07/03/19 21:00 History Tamsulosin [Flomax] 0.4 mg PO HS 07/06/19 07/06/19 07/03/19 21:00 History Amoxicillin/Potassium Clav 1 each PO BID #10 tablet 07/08/19 Unknown Rx [Augmentin 875-125 Tablet] Metoprolol [Lopressor TAB] 50 mg PO BID #60 tablet 07/08/19 Unknown Rx Vitamin A&D [Ad Ointment] 1 applic TP QDAY #1 tube 07/08/19 Unknown Rx Active Meds: Active Medications Acetaminophen (Tylenol) 650 mg PO Q6H PRN PRN Reason: Non Cardiac Pain or Temp>100.5 Acetaminophen/Hydrocodone Bitart ([place] 5/325) 1 each PO Q4H PRN PRN Reason: Pain, Moderate (4-6) Dextrose (D50w (25gm) Syringe) 50 ml IV PRN PRN PRN Reason: Hypoglycemia Dextrose (D5w) 1,000 mls @ 150 mls/hr IV DIRECT AWA Piperacillin Sod/Tazobactam Sod (Zosyn/Ns 4.5gm/100ml) 4.5 gm in 100 mls @ 200 mls/hr IV Q8HR AWA; Protocol Last Admin: 07/19/19 10:20 Dose: 200 mls/hr Documented by: Dextrose/Sodium Chloride (D5/0.45ns) 1,000 mls @ 75 mls/hr IV DIRECT AWA Insulin Human Lispro (Humalog) 0 unit SUB-Q ACHS AWA; Protocol Last Admin: 07/19/19 12:48 Dose: Not Given Documented by: Morphine Sulfate (Morphine) 2 mg IV Q4H PRN PRN Reason: Pain , Severe (7-10) Ondansetron HCl (Zofran) 4 mg IV Q4H PRN PRN Reason: Nausea And Vomiting Pantoprazole Sodium (Protonix) 40 mg PO QDAY AWA Last Admin: 07/19/19 10:27 Dose: 40 mg Documented by: Polyethylene Glycol (Miralax [id number]) 17 gm PO QDAY PRN PRN Reason: Constipation Physical Examination - Physical Exam Narrative exam: Physical Exam: Constitutional: Alert, cooperative. No acute distress Head, Ears, Nose: Normocephalic, atraumatic. External ears, nose normal Eyes: Conjunctivae/corneas clear. No icterus. No ptosis. Neck: Supple, no meningeal signs Oral: Edentulous, no thrush Cardiovascular: S1, S2 normal. Respiratory: Good air entry, clear to auscultation bilaterally GI: Soft, non-tender; bowel sounds normal. No peritoneal signs Musculoskeletal: No pedal edema, no cyanosis. Right lateral foot and fifth toe region with a wound, foul smell and dark appearance, left heel for superficial wound and early decubitus ulcer Skin: No rash or abscess Hem/Lymphatic: No palpable cervical or supraclavicular nodes. No lymphangitis Psych: Mood ok. Affect normal Neurological: Awake, alert, oriented. - Constitutional Vitals: Vital Signs Temp Pulse Resp BP Pulse Ox 97.8 F 89 19 166/70 98 07/19/19 11:28 07/19/19 12:30 07/19/19 12:30 07/19/19 11:28 07/19/19 12:30 Temperature -Last 24 Hours Temperature 97.8 F Temperature 98.2 F Results - Labs CBC & Chem 7: 07/19/19 07:25 07/19/19 07:25 Labs: Abnormal lab results 07/19/19 07/19/19 07/19/19 Range/Units 07:04 07:25 07:25 WBC 11.9 H (4.5-11.0) K/mm3 RBC 2.80 L (3.65-5.03) M/mm3 Hgb 7.8 L (11.8-15.2) gm/dl Hct 23.6 L (35.5-45.6) % RDW 15.8 H (13.2-15.2) % Plt Count 452 H (140-440) K/mm3 Lymph % (Auto) 5.2 L (13.4-35.0) % Lymph # 0.6 L (1.2-5.4) K/mm3 Seg Neutrophils % 87.9 H (40.0-70.0) % Seg Neutrophils # 10.4 H (1.8-7.7) K/mm3 PT 15.3 H (12.2-14.9) Sec. INR 1.24 H (0.87-1.13) Sodium (137-145) mmol/L Potassium (3.6-5.0) mmol/L BUN (9-20) mg/dL POC Glucose 190 H (70-105) Calcium (8.4-10.2) mg/dL ALT (7-56) units/L Troponin T (0.00-0.029) ng/mL Albumin (3.9-5) g/dL LDL Cholesterol Direct (50-130) mg/dL 07/19/19 07/19/19 Range/Units 07:25 07:25 WBC (4.5-11.0) K/mm3 RBC (3.65-5.03) M/mm3 Hgb (11.8-15.2) gm/dl Hct (35.5-45.6) % RDW (13.2-15.2) % Plt Count (140-440) K/mm3 Lymph % (Auto) (13.4-35.0) % Lymph # (1.2-5.4) K/mm3 Seg Neutrophils % (40.0-70.0) % Seg Neutrophils # (1.8-7.7) K/mm3 PT (12.2-14.9) Sec. INR (0.87-1.13) Sodium 136 L (137-145) mmol/L Potassium 3.0 L (3.6-5.0) mmol/L BUN 23 H (9-20) mg/dL POC Glucose (70-105) Calcium 8.1 L (8.4-10.2) mg/dL ALT 6 L (7-56) units/L Troponin T 0.051 H (0.00-0.029) ng/mL Albumin 2.6 L (3.9-5) g/dL LDL Cholesterol Direct 49 L (50-130) mg/dL - Imaging and Cardiology Chest x-ray: report reviewed, image reviewed (no pneumonia) Assessment and Plan Cultures: 07/19/2019 blood culture: In progress A/P: 84-year-old male with hypertension, diabetes mellitus type 2, s/p AICD placement also with: 1) Right foot diabetic wound infection with concern for underlying gangrene and vascular insufficiency: Patient with foul-smelling wound. Continue broad- spectrum antibiotics to target gram negatives, gram positives and anaerobes. Vascular surgery following. Patient is currently refusing any surgical in tervention. Overall prognosis is poor with high risk for amputation. Xray ordered to eval for underlying OM. Of note, patient is non ambulatory. 2) Diabetes mellitus type 2, uncontrolled Recs: Wound culture ordered Empiric treatment with IV cefepime, Flagyl and vancomycin Xray ordered to evaluate for underlying osteomyelitis Patient is currently refusing any surgical intervention. Overall prognosis is poor with high risk for amputation d/W Dr. Tony Marcum MD, FACP [facility] C: [phone] O: [phone] F: [phone]
[2019-07-19] MEDS: metroNIDAZOLE/NS 500 MG/100 ML 500 MG/100 ML BAG IV SCH ×2 (15:00→22:25)
[2019-07-19] MEDS: CEFEPIME/NS 1 GM/100 ML 1 GM/100 ML BAG IV SCH ×2 (15:00→21:23)
--- NOTE | 2019-07-19 17:04 | XRay Report ---
Right foot-3 views INDICATION: foot wound, eval for osteo. COMPARISON: None. IMPRESSION: Soft tissue wound along the lateral aspect of the forefoot with subcutaneous gas. No fra nk bone destruction or periostitis identified to suggest osteomyelitis. 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 Degenerative changes are also present greatest at the great toe MTP joint. Signer Name: Erasto Malcolm MD Signed: 07/19/2019 5:00 PM Workstation Name: [id number]
[2019-07-20] MEDS: D5W/0.45% NACL 1,000 ML IV SCH (04:04)
[2019-07-20 05:09] LABS: Hematocrit 20.2 % (35.5-45.6); Hemoglobin 7.2 gm/dl (11.8-15.2); Mean Corpuscular HGB Conc 36 % (32-34); Mean Corpuscular Volume 84 fl (84-94); Platelet Count 441 K/mm3 (140-440); Red Blood Count 2.39 M/mm3 (3.65-5.03)
[2019-07-20 05:25] LABS: BUN/Creatinine Ratio 17; Blood Urea Nitrogen 12 mg/dL (9-20); Calcium 8.1 mg/dL (8.4-10.2); Hemolysis Index 0
[2019-07-20] MEDS: CEFEPIME/NS 1 GM/100 ML 1 GM/100 ML BAG IV SCH ×2 (05:46→13:59)
[2019-07-20] MEDS: metroNIDAZOLE/NS 500 MG/100 ML 500 MG/100 ML BAG IV SCH ×3 (05:57→22:06)
[2019-07-20] MEDS ORDERED: MAGNESIUM SULFATE 2 GM/50 ML BAG IV ONE (06:13)
[2019-07-20] MEDS ORDERED: POTASSIUM CHLORIDE ER 20 MEQ TAB PO ONE (06:13)
--- NOTE | 2019-07-20 06:20 | Progress Note ---
Assessment and Plan Assessment and plan: Patient is a 84 yo man with a history of hypertension, DM type 2 not known to be on medications and functional quadriplegia/bed bound state who presents to [facility] ED with AMS. Patient became confused this morning associated with slurred speech and a period of unresponsiveness. Blood glucose via fingerstick was 22 when EMS checked, they gave him 1 amp of Dextrose and blood sugars increased to 190. Patient brought to the emergency room via EMS for evaluation of decreased responsiveness. EMS stated that patient was unresponsive and drooling on the right side of his mouth. After Dextrose given, patient immediately started waking up. Patient had similar admission beginning of this month. Patient also have a right leg cellulitis and discharged on Augmentin. He was admitted here on 07/05/19 with similar presentation of hypoglycemia and found to have UTI, right foot infection, ARF. He was just discharged on 07/08/19. Patient denies any recent trauma. Type 2 DM with hypoglycemic coma, resolved: monitor with accuchecks Wet right foot gangrene with suspected sepsis cellulitis: treat with abx, consult Vascular and Surgeon for amputation, wound care consult Acute metabolic encephalopathy due to low BG Hypoglycemia: no insulin, monitor with accuchecks, treat with Dextrose Functional quadriplegia/bed bound: PT/OT Severe malnutrition: consult Special Events Manager AICD by history: so no MRI of the foot, order ECHO and consult Cardiology Elevated troponin: consult Cardiology, Anemia, chronic: monitor CBC daily Hypokalemia: replete and recheck Hyponatremia: careful with IVFs, probably history of Cardiomyopathy with ICD, monitor bmp closely Hypomagnesemia: replete via IV magnesium and recheck DVT ppx: difficult decision making because of anemia and leg infection full code Cardiology ordered stress test, but K is 2.8 will supplement and hopefully get stress test rescheduled for tomorrow. Disposition: continue inpatient care, need roasterman abx setup for suspected osteomyelitis right foot, evaluation for amputation after Cardiology and vascular evaluation, pt is refusing amputation. Dr. Deal notified me that Mr. Chatterjee is his private patient, so I have transferred care to him. History Interval history: Patient was seen and examined. Follow-up on current diagnosis of hypoglycemia and right foot infection. No overnight events reported to me. Patient denies any chest pain, shortness breath, nausea/vomiting or severe headaches. Imaging, nursing note, chart, labs and old chart reviewed. Discussed with patient. Hospitalist Physical - Physical exam Narrative exam: Gen: chronically disable, acutely ill appearing, NAD, Awake, Alert, Orientated x 3 HEENT: NCAT, EOMI, PERRL, OP Clear Neck: supple, no adenopathy, no thyromegaly, no JVD CVS/Heart: RRR, normal S1S2, pulses present bilaterally Chest/Lungs: CTA B, Symmetrical chest expansion, good air entry bilaterally GI/Abdomen: soft, NTND, good bowel sounds, no guarding or rebound /Bladder: no suprapubic tenderness, no CVA or paraspinal tenderness Extermity/Skin: malodorous draining necrotic lateral right foot, also warm, erythematous circumferential redness with superficial ulcers up right renae, bilateral leg edema MSK: FROM x 4 Neuro: CN 2-12 grossly intact, no new focal deficits Psych: calm - Constitutional Vitals: Temp Pulse Resp BP Pulse Ox 98.0 F 88 20 132/54 88 07/20/19 05:01 07/20/19 05:01 07/20/19 05:01 07/20/19 05:01 07/20/19 05:01 General appearance: Present: no acute distress Results - Labs CBC & Chem 7: 07/20/19 04:21 07/20/19 04:21 Labs: Laboratory Last Values WBC 10.2 K/mm3 (4.5-11.0) 07/20/19 04:21 RBC 2.39 M/mm3 (3.65-5.03) L 07/20/19 04:21 Hgb 7.2 gm/dl (11.8-15.2) L 07/20/19 04:21 Hct 20.2 % (35.5-45.6) L 07/20/19 04:21 MCV 84 fl (84-94) 07/20/19 04:21 MCH 30 pg (28-32) 07/20/19 04:21 MCHC 36 % (32-34) H 07/20/19 04:21 RDW 16.0 % (13.2-15.2) H 07/20/19 04:21 Plt Count 441 K/mm3 (140-440) H 07/20/19 04:21 Lymph % (Auto) 5.2 % (13.4-35.0) L 07/19/19 07:25 Peach % (Auto) 5.5 % (0.0-7.3) 07/19/19 07:25 Eos % (Auto) 1.0 % (0.0-4.3) 07/19/19 07:25 Baso % (Auto) 0.4 % (0.0-1.8) 07/19/19 07:25 Lymph # 0.6 K/mm3 (1.2-5.4) L 07/19/19 07:25 Peach # 0.7 K/mm3 (0.0-0.8) 07/19/19 07:25 Eos # 0.1 K/mm3 (0.0-0.4) 07/19/19 07:25 Baso # 0.0 K/mm3 (0.0-0.1) 07/19/19 07:25 Seg Neutrophils % 87.9 % (40.0-70.0) H 07/19/19 07:25 Seg Neutrophils # 10.4 K/mm3 (1.8-7.7) H 07/19/19 07:25 PT 15.3 Sec. (12.2-14.9) H 07/19/19 07:25 INR 1.24 (0.87-1.13) H 07/19/19 07:25 APTT 29.5 Sec. (24.2-36.6) 07/19/19 07:25 Sodium 141 mmol/L (137-145) 07/20/19 04:21 Potassium 2.8 mmol/L (3.6-5.0) L* 07/20/19 04:21 Chloride 104.4 mmol/L (98-107) 07/20/19 04:21 Carbon Dioxide 25 mmol/L (22-30) 07/20/19 04:21 14 mmol/L 07/20/19 04:21 BUN 12 mg/dL (9-20) 07/20/19 04:21 0.7 mg/dL (0.8-1.5) L 07/20/19 04:21 Estimated GFR > 60 ml/min 07/20/19 04:21 17 % 07/20/19 04:21 Glucose 98 mg/dL (75-100) 07/20/19 04:21 POC Glucose 138 (70-105) H 07/19/19 21:32 6.1 % (4-6) H 07/20/19 04:21 Lactic Acid 1.30 mmol/L (0.7-2.0) 07/19/19 07:25 Calcium 8.1 mg/dL (8.4-10.2) L 07/20/19 04:21 Magnesium 1.60 mg/dL (1.7-2.3) L 07/20/19 04:21 0.40 mg/dL (0.1-1.2) 07/19/19 07:25 < 0.2 mg/dL (0-0.2) 07/19/19 07:25 0.2 mg/dL 07/19/19 07:25 AST 15 units/L (5-40) 07/19/19 07:25 ALT 6 units/L (7-56) L 07/19/19 07:25 113 units/L (35-129) 07/19/19 07:25 48.0 umol/L (25-60) 07/19/19 07:25 0.051 ng/mL (0.00-0.029) H 07/19/19 07:25 7.6 g/dL (6.3-8.2) 07/19/19 07:25 2.6 g/dL (3.9-5) L 07/19/19 07:25 0.5 % 07/19/19 07:25 Triglycerides 63 mg/dL (2-149) 07/19/19 07:25 Cholesterol 93 mg/dL (50-199) 07/19/19 07:25 49 mg/dL (50-130) L 07/19/19 07:25 46 mg/dL (40-59) 07/19/19 07:25 2.02 % 07/19/19 07:25 TSH 1.860 mlU/mL (0.270-4.200) 07/20/19 04:21 Yellow (Yellow) 07/19/19 08:20 Clear (Clear) 07/19/19 08:20 5.0 (5.0-7.0) 07/19/19 08:20 Ur Specific [place] 1.013 (1.003-1.030) 07/19/19 08:20 <15 mg/dl mg/dL (Negative) 07/19/19 08:20 Neg mg/dL (Negative) 07/19/19 08:20 Neg mg/dL (Negative) 07/19/19 08:20 Sm (Negative) 07/19/19 08:20 Neg (Negative) 07/19/19 08:20 Neg (Negative) 07/19/19 08:20 < 2.0 mg/dL (<2.0) 07/19/19 08:20 Ur Leukocyte Esterase Neg (Negative) 07/19/19 08:20 3.0 /HPF (0.0-6.0) 07/19/19 08:20 3.0 /HPF (0.0-6.0) 07/19/19 08:20 U Epithel Cells (Auto) 2.0 /HPF (0-13.0) 07/19/19 08:20 1+ /HPF (Negative) 07/19/19 08:20 Hyaline Casts 2 /LPF 07/19/19 08:20 Few /HPF 07/19/19 08:20 Plasma/Serum Alcohol < 0.01 % (0-0.07) 07/19/19 07:25 Active Medications - Current Medications Current Medications: Generic Name Dose Route Start Last Admin Trade Name Freq PRN Reason Stop Dose Admin Acetaminophen 650 mg 07/19/19 09:47 Tylenol PO Q6H PRN Non Cardiac Pain or Temp>100.5 Acetaminophen/Hydrocodone Bitart 1 each 07/19/19 09:47 [place] 5/325 PO Q4H PRN Pain, Moderate (4-6) Dextrose 50 ml 07/19/19 09:45 D50w (25gm) Syringe IV PRN PRN Hypoglycemia Dextrose/Sodium Chloride 1,000 mls @ 75 mls/hr 07/19/19 10:00 07/20/19 04:04 D5/0.45ns IV 75 mls/hr DIRECT AWA Administration Cefepime HCl 1 gm in 100 mls @ 200 mls/hr 07/19/19 15:00 07/20/19 05:46 Maxipime/Ns 1 Gm/100 Ml IV 200 mls/hr Q8HR AWA Administration Protocol Metronidazole 500 mg in 100 mls @ 100 mls/hr 07/19/19 15:00 07/20/19 05:57 Flagyl 500 Mg/100 Ml IV 100 mls/hr Q8HR AWA Administration Protocol Magnesium Sulfate 2 gm in 50 mls @ 25 mls/hr 07/20/19 06:13 Magnesium Sulfate 2gm/50ml IV 07/20/19 08:12 ONCE ONE Potassium Chloride 10 meq in 100 mls @ 100 mls/hr 07/20/19 07:00 Kcl 10meq/100ml IV 07/20/19 10:59 Q1H AWA Insulin Human Lispro 0 unit 07/19/19 11:30 07/19/19 21:26 Humalog SUB-Q Not Given ACHS [facility] Protocol Morphine Sulfate 2 mg 07/19/19 09:47 Morphine IV Q4H PRN Pain , Severe (7-10) Ondansetron HCl 4 mg 07/19/19 09:47 Zofran IV Q4H PRN Nausea And Vomiting Pantoprazole Sodium 40 mg 07/19/19 10:00 07/19/19 10:27 Protonix PO 40 mg QDAY AWA Administration Polyethylene Glycol 17 gm 07/19/19 09:47 Miralax 3350 PO QDAY PRN Constipation
[2019-07-20] MEDS ORDERED: REGADENOSON 0.4 MG/5 ML INJ IV ONE (07:28)
[2019-07-20] MEDS: POTASSIUM CHLORIDE 10 MEQ 10 MEQ/100 ML BAG IV SCH ×4 (07:59→11:34)
[2019-07-20] MEDS: INSULIN LISPRO 100 UNIT/ML SUB-Q SCH ×3 (08:26→22:06)
[2019-07-20] MEDS: PANTOPRAZOLE 40 MG TAB PO SCH (09:27)
[2019-07-20] MEDS: VANCOMYCIN 1,250 MG in SODIUM CHLORIDE 0.9% 250ML 250 ML IV SCH (09:45)
--- NOTE | 2019-07-20 12:51 | Consultation ---
History of Present Illness Consult date: 07/20/19 Requesting physician: EZEKIEL POWELL Consult reason: congestive heart failure, known to you History of present illness: The pt is an 84 YO male with a past medical history of CAD s/p PCI, ICMP, AICD in situ, HTN, HLP, DM, functional quadriplegia/bed bound state. He is followed in our office by Dr. Glez. He presented for evaluation of AMS. Patient became confused yesterday morning associated with slurred speech and a period of unresponsiveness in which his eyes were open but he had a blank stare per his family members at bedside.. Blood glucose via fingerstick was 22 upon EMS arrival and thus they gave him 1 amp of Dextrose and blood sugars increased to 190. EMS stated that patient was unresponsive and drooling on the right side of his mouth. After Dextrose given, patient immediately started waking up. Patient had similar admission beginning of this month. Patient also have a right leg cellulitis and discharged on Augmentin. He was admitted here on 07/05/19 with similar presentation of hypoglycemia and found to have UTI, right foot infection, ARF. He was just discharged on 07/08/19. Patient denies any recent trauma. On evaluation, pt appears alert and oriented. He denies any current cardiac complaints and his primary concern is his RLE wound. Echo done 05/2019 showed EF 30-35%, mild LVH, RV systolic function mildly reduced, pacemaker wire in right sided chambers. LHC done 02/2015 showed mod diffuse nonobstructive CAD with 30-40% prox RCA, 25% mid RCA, 25% distal left circ, EF 40-45%. AICD interrogation 05/2019 showed normal device function, no episodes. Past History Past Medical History: arthritis, CAD, diabetes, heart failure, hypertension, hyperlipidemia, PVD Past Surgical History: Other (AICD insertion) Social history: lives with family Medications and Allergies Allergies Allergy/AdvReac Type Severity Reaction Status Date / Time No Known Allergies Allergy Verified 07/05/19 11:07 Home Medications Medication Instructions Recorded Confirmed Last Taken Type ALBUTEROL NEB's [Proventil 0.083% 2.5 mg IH BID 07/06/19 07/20/19 07/03/19 15:00 History NEBS] Albuterol Sulfate [Proventil Hfa] 6.7 gm IH BID PRN 07/06/19 07/20/19 Unknown History Aspirin EC [Halfprin EC] 81 mg PO HS 07/06/19 07/20/19 07/03/19 21:00 History Cilostazol [Pletal] 50 mg PO BID 07/06/19 07/20/19 07/03/19 21:00 History Pravastatin Sodium [Pravastatin] 40 mg PO HS 07/06/19 07/20/19 07/03/19 21:00 History Tamsulosin [Flomax] 0.4 mg PO HS 07/06/19 07/20/19 07/03/19 21:00 History Amoxicillin/Potassium Clav 1 each PO BID #10 tablet 07/08/19 07/20/19 Unknown Rx [Augmentin 875-125 Tablet] Metoprolol [Lopressor TAB] 50 mg PO BID #60 tablet 07/08/19 07/20/19 Unknown Rx Vitamin A&D [Ad Ointment] 1 applic TP QDAY #1 tube 07/08/19 07/20/19 Unknown Rx Active Meds: Active Medications Acetaminophen (Tylenol) 650 mg PO Q6H PRN PRN Reason: Non Cardiac Pain or Temp>100.5 Acetaminophen/Hydrocodone Bitart ([place] 5/325) 1 each PO Q4H PRN PRN Reason: Pain, Moderate (4-6) Dextrose (D50w (25gm) Syringe) 50 ml IV PRN PRN PRN Reason: Hypoglycemia Dextrose/Sodium Chloride (D5/0.45ns) 1,000 mls @ 75 mls/hr IV DIRECT AWA Last Admin: 07/20/19 04:04 Dose: 75 mls/hr Documented by: Cefepime HCl (Maxipime/Ns 1 Gm/100 Ml) 1 gm in 100 mls @ 200 mls/hr IV Q8HR AWA; Protocol Last Admin: 07/20/19 05:46 Dose: 200 mls/hr Documented by: Metronidazole (Flagyl 500 Mg/100 Ml) 500 mg in 100 mls @ 100 mls/hr IV Q8HR AWA; Protocol Last Admin: 07/20/19 05:57 Dose: 100 mls/hr Documented by: Vancomycin HCl 1,250 mg/ (Sodium Chloride) 275 mls @ 166.667 mls/hr IV Q24HR AWA Last Admin: 07/20/19 09:45 Dose: 166.667 mls/hr Documented by: Insulin Human Lispro (Humalog) 0 unit SUB-Q ACHS [facility]; Protocol Last Admin: 07/20/19 08:26 Dose: Not Given Documented by: Morphine Sulfate (Morphine) 2 mg IV Q4H PRN PRN Reason: Pain , Severe (7-10) Ondansetron HCl (Zofran) 4 mg IV Q4H PRN PRN Reason: Nausea And Vomiting Pantoprazole Sodium (Protonix) 40 mg PO QDAY [facility] Last Admin: 07/20/19 09:27 Dose: 40 mg Documented by: Polyethylene Glycol (Miralax 3350) 17 gm PO QDAY PRN PRN Reason: Constipation Review of Systems Constitutional: no weight loss, no weight gain, no fever, no chills, no sweats Ears, nose, mouth and throat: no ear pain, no nose pain, no sinus pressure, no sinus pain Cardiovascular: high blood pressure, no chest pain, no orthopnea, no palpitations, no rapid/irregular heart beat, no lightheadedness, no shortness of breath, no dyspnea on exertion, no leg edema Respiratory: no cough, no shortness of breath, no dyspnea on exertion, no congestion, no wheezing, no pain on inspiration Gastrointestinal: no abdominal pain, no nausea, no vomiting, no diarrhea, no constipation, no change in bowel habits Genitourinary Male: no dysuria, no hematuria, no flank pain, no discharge, no urinary frequency, no urinary hesitancy Musculoskeletal: no neck stiffness, no neck pain, no shooting arm pain, no arm numbness/tingling, no low back pain, no shooting leg pain Integumentary: other (right foot wound), no rash, no pruritis Neurological: no head injury, no paralysis, no weakness, no parathesias, no numbness, no tingling, no seizures, no syncope Psychiatric: no anxiety Endocrine: no cold intolerance, no heat intolerance Hematologic/Lymphatic: no easy bruising, no easy bleeding Allergic/Immunologic: no urticaria, no wheezing Physical Examination Vital Signs Temp Pulse Resp BP Pulse Ox 98.2 F 98 H 16 134/60 98 07/19/19 07:27 07/19/19 07:27 07/19/19 07:27 07/19/19 07:27 07/19/19 07:27 General appearance: no acute distress HEENT: Positive: PERRL, Normocephaly, Mucus Membranes Moist Neck: Positive: neck supple, trachea midline Cardiac: Positive: Reg Rate and Rhythm, S1/S2 Lungs: Positive: Decreased Breath Sounds Neuro: Positive: Grossly Intact Abdomen: Negative: Tender Skin: Positive: Other (right foot wound) Extremities: Present: Other (right foot wound). Absent: edema Results 07/20/19 04:21 07/20/19 04:21 CBC 07/20/19 Range/Units 04:21 WBC 10.2 (4.5-11.0) K/mm3 RBC 2.39 L (3.65-5.03) M/mm3 Hgb 7.2 L (11.8-15.2) gm/dl Hct 20.2 L (35.5-45.6) % Plt Count 441 H (140-440) K/mm3 Comprehensive Metabolic Panel 07/20/19 Range/Units 04:21 Sodium 141 (137-145) mmol/L Potassium 2.8 L* (3.6-5.0) mmol/L Chloride 104.4 (98-107) mmol/L Carbon Dioxide 25 (22-30) mmol/L BUN 12 (9-20) mg/dL Creatinine 0.7 L (0.8-1.5) mg/dL Glucose 98 (75-100) mg/dL Calcium 8.1 L (8.4-10.2) mg/dL - Imaging and Cardiology Echo: report reviewed (05/2019 showed EF 30-35%, mild LVH, RV systolic function mildly reduced, pacemaker wire in right sided chambers. ) Cardiac cath: report reviewed (02/2015 showed mod diffuse nonobstructive CAD with 30-40% prox RCA, 25% mid RCA, 25% distal left circ, EF 40-45%. ) EKG: report reviewed, image reviewed EKG interpretations - Telemetry EKG Rhythm: Sinus Rhythm - EKG Sinus rhythms and dysrhythmias: sinus rhythm Assessment and Plan Pt presented with AMS likely secondary to hypoglycemia, also has RLE wound with suspected gangrene. Troponins are minimally elevated, ECG with NAF and pt had no occurrence of chest pain. Severe anemia noted - will monitor. AMI ruled out. No plans for ischemic w/u at this time - stress test cancelled. Echo done 05/2019 showed EF 30-35%, mild LVH, RV systolic function mildly r educed, pacemaker wire in right sided chambers. LHC done 02/2015 showed mod diffuse nonobstructive CAD with 30-40% prox RCA, 25% mid RCA, 25% distal left circ, EF 40-45%. AICD interrogation 05/2019 showed normal device function, no episodes. In regards to RLE wound, vascular consultation noted and surgery consultation pending, although pt is currently adamantly against surgery. Currently stable cardiac status. Resume home cardiac regimen. Replete K+ and check serum Mg. Will follow. The patient has been seen in conjunction with Dr. Glez who agrees with the assessment and plan of care. - Patient Problems (1) Wound of right leg Current Visit: Yes Status: Acute (2) Gangrene Current Visit: Yes Status: Suspected (3) Altered mental status Current Visit: Yes Status: Resolved (4) Hypoglycemia Current Visit: Yes Status: Resolved (5) CAD (coronary artery disease) Current Visit: Yes Status: Chronic (6) Stented coronary artery Current Visit: Yes Status: Chronic (7) Ischemic cardiomyopathy Current Visit: Yes Status: Chronic (8) Automatic implantable cardioverter-defibrillator in situ Current Visit: Yes Status: Chronic (9) HTN (hypertension) Current Visit: Yes Status: Chronic (10) Hyperlipidemia Current Visit: Yes Status: Chronic (11) Diabetes Current Visit: Yes Status: Chronic (12) Anemia Current Visit: Yes Status: Acute Qualifiers: Anemia type: other cause Other causes of anemia: other cause, not classified Qualified Code(s): D64.89 - Other specified anemias (13) Hypokalemia Current Visit: Yes Status: Acute (14) Elevated troponin Current Visit: Yes Status: Acute (15) Debility Current Visit: Yes Status: Chronic
--- NOTE | 2019-07-20 14:25 | Progress Note ---
Assessment and Plan Cultures: 07/19/2019 blood culture: In progress wound culture: enterococcus, GNR A/P: 84-year-old male with hypertension, diabetes mellitus type 2, s/p AICD placement also with: 1) Right foot diabetic wound infection with concern for underlying gangrene and vascular insufficiency: Patient with foul-smelling wound. Continue broad- spectrum antibiotics to target gram negatives, gram positives and anaerobes. Vascular surgery following. Patient is currently refusing any surgical inter vention. Overall prognosis is poor with high risk for amputation. Xray negative, hence will need MRI to eval for OM. Of note, patient is non ambulatory. 2) Diabetes mellitus type 2, uncontrolled. Recs: MRI of right foot ordered to eval for osteomyelitis. Xray negative Continue IV cefepime, Flagyl and vancomycin Patient is currently refusing any surgical intervention. Overall prognosis is poor with high risk for amputation Rasta Marcum MD, FACP [facility] C: [phone] O: [phone] F: [phone] Subjective Date of service: 07/20/19 Interval history: No new complaints. States his feet are feeling better. Refusing surgical intervention. Objective - Exam Narrative Exam: Physical Exam: Constitutional: Alert, cooperative. No acute distress Head, Ears, Nose: Normocephalic, atraumatic. External ears, nose normal Eyes: Conjunctivae/corneas clear. No icterus. No ptosis. Neck: Supple, no meningeal signs Oral: Edentulous, no thrush Cardiovascular: S1, S2 normal. Respiratory: Good air entry, clear to auscultation bilaterally GI: Soft, non-tender; bowel sounds normal. No peritoneal signs Musculoskeletal: No pedal edema, no cyanosis. Right lateral foot and fifth toe region with a wound, foul smell and dark appearance, left heel for superficial wound and early decubitus ulcer Skin: No rash or abscess Hem/Lymphatic: No palpable cervical or supraclavicular nodes. No lymphangitis Psych: Mood ok. Affect normal Neurological: Awake, alert, oriented. - Constitutional Vitals: Vital Signs Temp Pulse Resp BP Pulse Ox 99.2 F 72 20 127/49 97 07/20/19 08:32 07/20/19 08:32 07/20/19 08:32 07/20/19 08:32 07/20/19 08:32 Temperature -Last 24 Hours Temperature 99.2 F Temperature 98.0 F Temperature 98.0 F Temperature 98.0 F Temperature 98.7 F - Labs CBC & Chem 7: 07/20/19 04:21 07/20/19 04:21 Labs: Abnormal lab results 07/19/19 07/20/19 07/20/19 Range/Units 21:32 04:21 04:21 RBC 2.39 L (3.65-5.03) M/mm3 Hgb 7.2 L (11.8-15.2) gm/dl Hct 20.2 L (35.5-45.6) % MCHC 36 H (32-34) % RDW 16.0 H (13.2-15.2) % Plt Count 441 H (140-440) K/mm3 Potassium 2.8 L* (3.6-5.0) mmol/L Creatinine 0.7 L (0.8-1.5) mg/dL POC Glucose 138 H (70-105) Hemoglobin A1c (4-6) % Calcium 8.1 L (8.4-10.2) mg/dL Magnesium 1.60 L (1.7-2.3) mg/dL Troponin T (0.00-0.029) ng/mL 07/20/19 07/20/19 07/20/19 Range/Units 04:21 04:21 08:39 RBC (3.65-5.03) M/mm3 Hgb (11.8-15.2) gm/dl Hct (35.5-45.6) % MCHC (32-34) % RDW (13.2-15.2) % Plt Count (140-440) K/mm3 Potassium (3.6-5.0) mmol/L Creatinine (0.8-1.5) mg/dL POC Glucose 125 H (70-105) Hemoglobin A1c 6.1 H (4-6) % Calcium (8.4-10.2) mg/dL Magnesium (1.7-2.3) mg/dL Troponin T 0.059 H (0.00-0.029) ng/mL 07/20/19 Range/Units 11:21 RBC (3.65-5.03) M/mm3 Hgb (11.8-15.2) gm/dl Hct (35.5-45.6) % MCHC (32-34) % RDW (13.2-15.2) % Plt Count (140-440) K/mm3 Potassium (3.6-5.0) mmol/L Creatinine (0.8-1.5) mg/dL POC Glucose 159 H (70-105) Hemoglobin A1c (4-6) % Calcium (8.4-10.2) mg/dL Magnesium (1.7-2.3) mg/dL Troponin T (0.00-0.029) ng/mL
--- NOTE | 2019-07-20 16:01 | Consultation ---
History of Present Illness Consult date: 07/20/19 Chief complaint: Right lateral foot gangrene - History of present illness History of present illness: 84 yo diabetic male with gangrene & SQ gas of the right lateral foot and 4th/5th toes. He does not smoke. He has not walked in 4-5 months. He has been evaluated by Vascular Surgery and right AKA recommended but pt initially refused any surgery. Past History Past Medical History: arthritis, CAD, diabetes, heart failure, hypertension, hyperlipidemia, PVD Past Surgical History: Other (AICD insertion) Social history: lives with family Medications and Allergies Allergies Allergy/AdvReac Type Severity Reaction Status Date / Time No Known Allergies Allergy Verified 07/05/19 11:07 Home Medications Medication Instructions Recorded Confirmed Last Taken Type ALBUTEROL NEB's [Proventil 0.083% 2.5 mg IH BID 07/06/19 07/20/19 07/03/19 15:00 History NEBS] Albuterol Sulfate [Proventil Hfa] 6.7 gm IH BID PRN 07/06/19 07/20/19 Unknown History Aspirin EC [Halfprin EC] 81 mg PO HS 07/06/19 07/20/19 07/03/19 21:00 History Cilostazol [Pletal] 50 mg PO BID 07/06/19 07/20/19 07/03/19 21:00 History Pravastatin Sodium [Pravastatin] 40 mg PO HS 07/06/19 07/20/19 07/03/19 21:00 History Tamsulosin [Flomax] 0.4 mg PO HS 07/06/19 07/20/19 07/03/19 21:00 History Amoxicillin/Potassium Clav 1 each PO BID #10 tablet 07/08/19 07/20/19 Unknown Rx [Augmentin 875-125 Tablet] Metoprolol [Lopressor TAB] 50 mg PO BID #60 tablet 07/08/19 07/20/19 Unknown Rx Vitamin A&D [Ad Ointment] 1 applic TP QDAY #1 tube 07/08/19 07/20/19 Unknown Rx Active Meds: Active Medications Acetaminophen (Tylenol) 650 mg PO Q6H PRN PRN Reason: Non Cardiac Pain or Temp>100.5 Acetaminophen/Hydrocodone Bitart (Baxley 5/325) 1 each PO Q4H PRN PRN Reason: Pain, Moderate (4-6) Aspirin (Halfprin Ec) 81 mg PO DAILY [facility] Carvedilol (Coreg) 6.25 mg PO BID AWA Cilostazol (Pletal) 50 mg PO BID [facility] Dextrose (D50w (25gm) Syringe) 50 ml IV PRN PRN PRN Reason: Hypoglycemia Dextrose/Sodium Chloride (D5/0.45ns) 1,000 mls @ 75 mls/hr IV DIRECT AWA Last Admin: 07/20/19 04:04 Dose: 75 mls/hr Documented by: Cefepime HCl (Maxipime/Ns 1 Gm/100 Ml) 1 gm in 100 mls @ 200 mls/hr IV Q8HR AWA; Protocol Last Admin: 07/20/19 13:59 Dose: 200 mls/hr Documented by: Metronidazole (Flagyl 500 Mg/100 Ml) 500 mg in 100 mls @ 100 mls/hr IV Q8HR AWA; Protocol Last Admin: 07/20/19 13:59 Dose: 100 mls/hr Documented by: Vancomycin HCl 1,250 mg/ (Sodium Chloride) 275 mls @ 166.667 mls/hr IV Q24HR AWA Last Admin: 07/20/19 09:45 Dose: 166.667 mls/hr Documented by: Insulin Human Lispro (Humalog) 0 unit SUB-Q ACHS [facility]; Protocol Last Admin: 07/20/19 13:16 Dose: Not Given Documented by: Losartan Potassium (Cozaar) 50 mg PO QDAY [facility] Morphine Sulfate (Morphine) 2 mg IV Q4H PRN PRN Reason: Pain , Severe (7-10) Ondansetron HCl (Zofran) 4 mg IV Q4H PRN PRN Reason: Nausea And Vomiting Pantoprazole Sodium (Protonix) 40 mg PO QDAY [facility] Last Admin: 07/20/19 09:27 Dose: 40 mg Documented by: Polyethylene Glycol (Miralax [id number]) 17 gm PO QDAY PRN PRN Reason: Constipation Pravastatin Sodium (Pravachol) 40 mg PO QHS [facility] Review of Systems All systems: negative (none) Exam Vital Signs Temp Pulse Resp BP Pulse Ox 98.2 F 98 H 16 134/60 98 07/19/19 07:27 07/19/19 07:27 07/19/19 07:27 07/19/19 07:27 07/19/19 07:27 - General physical appearance Positive: well developed, well nourished, no distress - Eyes Positive: PERRL, normal occular movement - ENT Positive: normal pinna, normal nares, normal mucosa, no hearing loss, no congestion - Neck Positive: no masses, no bruits, trachea midline, no venous distension - Respiratory Positive: normal expansion, normal respiratory effort, clear to auscultation - Cardiovascular Rhythm: regular Heart Sounds: Present: S1 & S2. Absent: rub, click - Extremities Extremity abnormal: other (Right foot - There is a 7.5 X 4.5 cm eschar along the distal, lateral aspect of the right foot which also involves the base of the 4th and 5th toes. ) Peripheral Pulses: abnormal (Right DP and PT pulses are non-palpable.) - Breasts Breasts: deferred - Abdomen Abdomen: Present: soft, bowel sounds normal. Absent: tender, distended Hernia: none - Genitourinary Male Genitourinary: deferred - Neurologic Neurologic: alert and oriented to time, place and person, motor strength and sensation are grossly intact - Psychiatric Psychiatric: appropriate mood/affect, intact judgment & insight Results - Labs 07/20/19 04:21 07/20/19 04:21 Abnormal lab results 07/19/19 07/20/19 07/20/19 Range/Units 21:32 04:21 04:21 RBC 2.39 L (3.65-5.03) M/mm3 Hgb 7.2 L (11.8-15.2) gm/dl Hct 20.2 L (35.5-45.6) % MCHC 36 H (32-34) % RDW 16.0 H (13.2-15.2) % Plt Count 441 H (140-440) K/mm3 Potassium 2.8 L* (3.6-5.0) mmol/L Creatinine 0.7 L (0.8-1.5) mg/dL POC Glucose 138 H (70-105) Hemoglobin A1c (4-6) % Calcium 8.1 L (8.4-10.2) mg/dL Magnesium 1.60 L (1.7-2.3) mg/dL Troponin T (0.00-0.029) ng/mL 07/20/19 07/20/19 07/20/19 Range/Units 04:21 04:21 08:39 RBC (3.65-5.03) M/mm3 Hgb (11.8-15.2) gm/dl Hct (35.5-45.6) % MCHC (32-34) % RDW (13.2-15.2) % Plt Count (140-440) K/mm3 Potassium (3.6-5.0) mmol/L Creatinine (0.8-1.5) mg/dL POC Glucose 125 H (70-105) Hemoglobin A1c 6.1 H (4-6) % Calcium (8.4-10.2) mg/dL Magnesium (1.7-2.3) mg/dL Troponin T 0.059 H (0.00-0.029) ng/mL 07/20/19 Range/Units 11:21 RBC (3.65-5.03) M/mm3 Hgb (11.8-15.2) gm/dl Hct (35.5-45.6) % MCHC (32-34) % RDW (13.2-15.2) % Plt Count (140-440) K/mm3 Potassium (3.6-5.0) mmol/L Creatinine (0.8-1.5) mg/dL POC Glucose 159 H (70-105) Hemoglobin A1c (4-6) % Calcium (8.4-10.2) mg/dL Magnesium (1.7-2.3) mg/dL Troponin T (0.00-0.029) ng/mL Diabetes panel 07/20/19 07/20/19 Range/Units 04:21 04:21 Sodium 141 (137-145) mmol/L Potassium 2.8 L* (3.6-5.0) mmol/L Chloride 104.4 (98-107) mmol/L Carbon Dioxide 25 (22-30) mmol/L BUN 12 (9-20) mg/dL Creatinine 0.7 L (0.8-1.5) mg/dL Glucose 98 (75-100) mg/dL Hemoglobin A1c 6.1 H (4-6) % Calcium 8.1 L (8.4-10.2) mg/dL Thyroid panel 07/20/19 Range/Units 04:21 TSH 1.860 (0.270-4.200) mlU/mL Calcium panel 07/20/19 Range/Units 04:21 Calcium 8.1 L (8.4-10.2) mg/dL Pituitary panel 07/20/19 07/20/19 Range/Units 04:21 04:21 Sodium 141 (137-145) mmol/L Potassium 2.8 L* (3.6-5.0) mmol/L Chloride 104.4 (98-107) mmol/L Carbon Dioxide 25 (22-30) mmol/L BUN 12 (9-20) mg/dL Creatinine 0.7 L (0.8-1.5) mg/dL Glucose 98 (75-100) mg/dL Calcium 8.1 L (8.4-10.2) mg/dL TSH 1.860 (0.270-4.200) mlU/mL Adrenal panel 07/20/19 Range/Units 04:21 Sodium 141 (137-145) mmol/L Potassium 2.8 L* (3.6-5.0) mmol/L Chloride 104.4 (98-107) mmol/L Carbon Dioxide 25 (22-30) mmol/L BUN 12 (9-20) mg/dL Creatinine 0.7 L (0.8-1.5) mg/dL Glucose 98 (75-100) mg/dL Calcium 8.1 L (8.4-10.2) mg/dL - Imaging Additional studies: A1c today was 6.1. Plain x-ray of the right foot reveals SQ gas under the eschar but no obvious evidence of osteomyelitis. Assessment and Plan - Patient Problems (1) Gangrene Current Visit: Yes Status: Suspected Plan to address problem: 1) Correct hypokalemia 2) Transfuse 2 units of PRBC 3) Optimization of left sided CHF & CAD via Cardiology consultation 4) Pt is still refusing right AKA or BKA. 5) He will consider amputation of right 4th and 5th toes and drainage of infection/SQ gas. He will talk to his family today. Will make him NPO after MN. He is still quite hesitant to proceed with any surgery. He is aware of the risk of progressing infection resulting in AKA and even . He states he really just wants to go home.
[2019-07-20] MEDS: carvediloL 6.25 MG TAB PO SCH (22:05)
[2019-07-20] MEDS: CILOSTAZOL 100 MG TAB PO SCH (22:05)
[2019-07-20] MEDS: PRAVASTATIN 40 MG TAB PO SCH (22:05)
[2019-07-21] MEDS: CEFEPIME/NS 1 GM/100 ML 1 GM/100 ML BAG IV SCH ×3 (00:38→14:20)
[2019-07-21] MEDS: D5W/0.45% NACL 1,000 ML IV SCH (00:39)
[2019-07-21] MEDS: metroNIDAZOLE/NS 500 MG/100 ML 500 MG/100 ML BAG IV SCH ×2 (05:11→14:20)
[2019-07-21 06:42] LABS: Hematocrit 20.9 % (35.5-45.6); Hemoglobin 6.9 gm/dl (11.8-15.2); Mean Corpuscular HGB Conc 33 % (32-34); Mean Corpuscular Volume 85 fl (84-94); Platelet Count 444 K/mm3 (140-440); Red Blood Count 2.45 M/mm3 (3.65-5.03)
[2019-07-21 07:01] LABS: Albumin 2.2 g/dL (3.9-5); BUN/Creatinine Ratio 13; Blood Urea Nitrogen 9 mg/dL (9-20); Calcium 7.7 mg/dL (8.4-10.2); Hemolysis Index 8
[2019-07-21 07:12] LABS: Alanine Aminotransferase < 5 units/L (7-56)
[2019-07-21] MEDS: INSULIN LISPRO 100 UNIT/ML SUB-Q SCH ×5 (08:41→22:40)
--- NOTE | 2019-07-21 09:47 | Progress Note ---
Assessment and Plan Patient is a 84 yo man with a history of hypertension, DM type 2 not known to be on medications and functional quadriplegia/bed bound state who presents to [facility] ED with AMS. Patient became confused this morning associated with slurred speech and a period of unresponsiveness. Blood glucose via fingerstick was 22 when EMS checked, they gave him 1 amp of Dextrose and blood sugars increased to 190. Patient brought to the emergency room via EMS for evaluation of decreased responsiveness. EMS stated that patient was unresponsive and drooling on the right side of his mouth. After Dextrose given, patient immediately started waking up. Patient had similar admission beginning of this month. Patient also have a right leg cellulitis and discharged on Augmentin. He was admitted here on 07/05/19 with similar presentation of hypoglycemia and found to have UTI, right foot infection, ARF. He was just discharged on 07/08/19. Patient denies any recent trauma. Wet right foot gangrene with suspected sepsis cellulitis: treat with abx, consult Vascular and Surgeon for amputation, wound care consult wound Cx grew Enterobacter Feacalis and proteus - ID following and on iv antibiotic with Cefepioin, falgyl and Vanc. Amputation of the toe recommended. Pt still considering. Acute metabolic encephalopathy resolved Type 2 DM with hypoglycemic Aic 6.1, resolved: monitor with accuchecks Functional quadriplegia/bed bound: PT/OT Severe malnutrition: consult [employer], CAD s/p PCI, with AICD : so no MRI of the foot, order ECHO and consult Cardiology Continue with [facility] emergency department meds Elevated troponin: consult Cardiology, For stress test per cardiology Anemia, chronic: will transfuse monitor CBC daily Hypokalemia : imporved Replete further Hypomagneseimia - corrected Hyponatremia: corrected careful with IVFs, probably history of Cardiomyopathy with ICD, monitor bmp closely DVT ppx: difficult decision making because of anemia and leg infection full code DVT PPx SCD only b/c sever anemai Subjective Date of service: 07/21/19 Principal diagnosis: diabetic right foot wound. T2DM, malnutrition Interval history: lying quietly in bed. No fever. Alert and interactive Objective - Constitutional Vitals: Vital Signs - 12hr 07/20/19 07/20/19 07/20/19 22:05 23:46 23:47 Temperature 98.5 F Pulse Rate 86 79 Respiratory 20 Rate Blood Pressure 135/56 110/55 O2 Sat by Pulse 96 Oximetry 07/21/19 07/21/19 07/21/19 01:00 04:07 04:09 Temperature 98.9 F Pulse Rate 81 78 Respiratory 20 Rate Blood Pressure 105/49 O2 Sat by Pulse 92 Oximetry - Labs CBC & Chem 7: 07/22/19 04:07 07/22/19 04:07 Labs: Abnormal lab results 07/20/19 07/20/19 07/20/19 Range/Units 08:39 11:21 17:59 RBC (3.65-5.03) M/mm3 Hgb (11.8-15.2) gm/dl Hct (35.5-45.6) % RDW (13.2-15.2) % Plt Count (140-440) K/mm3 Potassium (3.6-5.0) mmol/L Creatinine (0.8-1.5) mg/dL Glucose (75-100) mg/dL POC Glucose 125 H 159 H 194 H (70-105) Calcium (8.4-10.2) mg/dL Phosphorus (2.5-4.5) mg/dL ALT (7-56) units/L Albumin (3.9-5) g/dL 07/20/19 07/21/19 07/21/19 Range/Units 21:15 05:25 05:25 RBC 2.45 L (3.65-5.03) M/mm3 Hgb 6.9 L (11.8-15.2) gm/dl Hct 20.9 L (35.5-45.6) % RDW 16.0 H (13.2-15.2) % Plt Count 444 H (140-440) K/mm3 Potassium 3.5 L D (3.6-5.0) mmol/L Creatinine 0.7 L (0.8-1.5) mg/dL Glucose 167 H (75-100) mg/dL POC Glucose 235 H (70-105) Calcium 7.7 L (8.4-10.2) mg/dL Phosphorus 1.30 L (2.5-4.5) mg/dL ALT < 5 L (7-56) units/L Albumin 2.2 L (3.9-5) g/dL 09/17/19 Range/Units 07:35 RBC (3.65-5.03) M/mm3 Hgb (11.8-15.2) gm/dl Hct (35.5-45.6) % RDW (13.2-15.2) % Plt Count (140-440) K/mm3 Potassium (3.6-5.0) mmol/L Creatinine (0.8-1.5) mg/dL Glucose (75-100) mg/dL POC Glucose 209 H (70-105) Calcium (8.4-10.2) mg/dL Phosphorus (2.5-4.5) mg/dL ALT (7-56) units/L Albumin (3.9-5) g/dL
[2019-07-21] MEDS: CILOSTAZOL 100 MG TAB PO SCH ×2 (10:08→22:38)
[2019-07-21] MEDS: carvediloL 6.25 MG TAB PO SCH ×2 (10:09→22:40)
[2019-07-21] MEDS: PANTOPRAZOLE 40 MG TAB PO SCH (10:09)
[2019-07-21] MEDS: LOSARTAN 50 MG TAB PO SCH (10:09)
[2019-07-21] MEDS: ASPIRIN EC 81 MG TAB PO SCH (10:09)
--- NOTE | 2019-07-21 10:10 | Progress Note ---
Assessment and Plan - Patient Problems (1) Gangrene Current Visit: Yes Status: Suspected Plan to address problem: 1) Pt now giving consent for amputation of right 4th and 5th toes. K+ is corrected. He still needs to be transfused 2 units of PRBC's. Will schedule for surgery once he is transfused. I have prior commitments tomorrow and the OR can only give me an "add on" time tomorrow. I therefore placed him on the "add on" schedule for . 2) I have resumed his diabetic diet for today. Subjective Date of service: 07/21/19 Patient Reports: Positive: no new complaints Objective Vital Signs - 12hr 07/20/19 07/20/19 07/20/19 22:05 23:46 23:47 Temperature 98.5 F Pulse Rate 86 79 Respiratory 20 Rate Blood Pressure 135/56 110/55 O2 Sat by Pulse 96 Oximetry 07/21/19 07/21/19 07/21/19 01:00 04:07 04:09 Temperature 98.9 F Pulse Rate 81 78 Respiratory 20 Rate Blood Pressure 105/49 O2 Sat by Pulse 92 Oximetry - Integumentary other (No change in right foot exam.) - Labs 07/21/19 05:25 07/21/19 05:25 Diabetes panel 07/21/19 Range/Units 05:25 Sodium 140 (137-145) mmol/L Potassium 3.5 L D (3.6-5.0) mmol/L Chloride 106.6 (98-107) mmol/L Carbon Dioxide 24 (22-30) mmol/L BUN 9 (9-20) mg/dL Creatinine 0.7 L (0.8-1.5) mg/dL Glucose 167 H (75-100) mg/dL Calcium 7.7 L (8.4-10.2) mg/dL AST 9 (5-40) units/L ALT < 5 L (7-56) units/L Alkaline Phosphatase 99 (35-129) units/L Total Protein 6.5 (6.3-8.2) g/dL Albumin 2.2 L (3.9-5) g/dL Calcium panel 07/21/19 Range/Units 05:25 Calcium 7.7 L (8.4-10.2) mg/dL Phosphorus 1.30 L (2.5-4.5) mg/dL Albumin 2.2 L (3.9-5) g/dL Pituitary panel 07/21/19 Range/Units 05:25 Sodium 140 (137-145) mmol/L Potassium 3.5 L D (3.6-5.0) mmol/L Chloride 106.6 (98-107) mmol/L Carbon Dioxide 24 (22-30) mmol/L BUN 9 (9-20) mg/dL Creatinine 0.7 L (0.8-1.5) mg/dL Glucose 167 H (75-100) mg/dL Calcium 7.7 L (8.4-10.2) mg/dL Adrenal panel 07/21/19 Range/Units 05:25 Sodium 140 (137-145) mmol/L Potassium 3.5 L D (3.6-5.0) mmol/L Chloride 106.6 (98-107) mmol/L Carbon Dioxide 24 (22-30) mmol/L BUN 9 (9-20) mg/dL Creatinine 0.7 L (0.8-1.5) mg/dL Glucose 167 H (75-100) mg/dL Calcium 7.7 L (8.4-10.2) mg/dL Total Bilirubin 0.40 (0.1-1.2) mg/dL AST 9 (5-40) units/L ALT < 5 L (7-56) units/L Alkaline Phosphatase 99 (35-129) units/L Total Protein 6.5 (6.3-8.2) g/dL Albumin 2.2 L (3.9-5) g/dL
[2019-07-21] MEDS: VANCOMYCIN 1,250 MG in SODIUM CHLORIDE 0.9% 250ML 250 ML IV SCH (10:15)
[2019-07-21] MEDS ORDERED: SODIUM CHLORIDE 0.9% 500 ML 500 ML IV ONE (10:30)
--- NOTE | 2019-07-21 10:31 | Progress Note ---
Assessment and Plan Pt currently giving consent for amputation of right 4th and 5th toes. For surgery tentatively on . For PRBC tx today. Currently stable cardiac status. Cont present cardiac regimen. The patient has been seen in conjunction with Dr. Glez who agrees with the assessment and plan of care. - Patient Problems (1) Wound of right leg Current Visit: Yes Status: Acute (2) Gangrene Current Visit: Yes Status: Suspected (3) Altered mental status Current Visit: Yes Status: Resolved (4) Hypoglycemia Current Visit: Yes Status: Resolved (5) CAD (coronary artery disease) Current Visit: Yes Status: Chronic (6) Stented coronary artery Current Visit: Yes Status: Chronic (7) Ischemic cardiomyopathy Current Visit: Yes Status: Chronic (8) Automatic implantable cardioverter-defibrillator in situ Current Visit: Yes Status: Chronic (9) HTN (hypertension) Current Visit: Yes Status: Chronic (10) Hyperlipidemia Current Visit: Yes Status: Chronic (11) Diabetes Current Visit: Yes Status: Chronic (12) Anemia Current Visit: Yes Status: Acute Qualifiers: Anemia type: other cause Other causes of anemia: other cause, not classified Qualified Code(s): D64.89 - Other specified anemias (13) Hypokalemia Current Visit: Yes Status: Acute (14) Elevated troponin Current Visit: Yes Status: Acute (15) Debility Current Visit: Yes Status: Chronic Subjective Date of service: 07/21/19 Principal diagnosis: diabetic right foot wound. T2DM, malnutrition Interval history: pt resting in bed, no current cardiac complaints. in SR on tele. Objective Last Vital Signs Temp 98.7 F 07/21/19 08:05 Pulse 83 07/21/19 10:09 Resp 20 07/21/19 08:05 BP 118/43 07/21/19 10:09 Pulse Ox 97 07/21/19 10:06 - Physical Examination General: No Apparent Distress HEENT: Positive: PERRL, Normocephaly, Mucus Membranes Moist Neck: Positive: neck supple, trachea midline Cardiac: Positive: Reg Rate and Rhythm, S1/S2 Lungs: Positive: Decreased Breath Sounds Neuro: Positive: Grossly Intact Abdomen: Negative: Tender Skin: Positive: Other (right foot wound) Extremities: Present: Other (right foot wound). Absent: edema - Labs and Meds Cardiac Enzymes 07/21/19 Range/Units 05:25 AST 9 (5-40) units/L CBC 07/21/19 Range/Units 05:25 WBC 10.0 (4.5-11.0) K/mm3 RBC 2.45 L (3.65-5.03) M/mm3 Hgb 6.9 L (11.8-15.2) gm/dl Hct 20.9 L (35.5-45.6) % Plt Count 444 H (140-440) K/mm3 Comprehensive Metabolic Panel 07/21/19 Range/Units 05:25 Sodium 140 (137-145) mmol/L Potassium 3.5 L D (3.6-5.0) mmol/L Chloride 106.6 (98-107) mmol/L Carbon Dioxide 24 (22-30) mmol/L BUN 9 (9-20) mg/dL Creatinine 0.7 L (0.8-1.5) mg/dL Glucose 167 H (75-100) mg/dL Calcium 7.7 L (8.4-10.2) mg/dL AST 9 (5-40) units/L ALT < 5 L (7-56) units/L Alkaline Phosphatase 99 (35-129) units/L Total Protein 6.5 (6.3-8.2) g/dL Albumin 2.2 L (3.9-5) g/dL - Imaging and Cardiology EKG: report reviewed, image reviewed Echo: report reviewed (05/2019 showed EF 30-35%, mild LVH, RV systolic function mildly reduced, pacemaker wire in right sided chambers. ) Cardiac cath: report reviewed (02/2015 showed mod diffuse nonobstructive CAD with 30-40% prox RCA, 25% mid RCA, 25% distal left circ, EF 40-45%. ) - EKG Sinus rhythms and dysrhythmias: sinus rhythm
[2019-07-21] MEDS: POTASSIUM CHLORIDE 10 MEQ 10 MEQ/100 ML BAG IV SCH ×3 (10:45→13:48)
--- NOTE | 2019-07-21 14:45 | Progress Note ---
Assessment and Plan Cultures: 07/19/2019 blood culture: no growth wound culture: enterococcus, Proteus A/P: 84-year-old male with hypertension, diabetes mellitus type 2, s/p AICD placement also with: 1) Right foot diabetic wound infection with concern for underlying gangrene and vascular insufficiency: Patient with foul-smelling wound. Continue broad- spectrum antibiotics to target gram negatives, gram positives and anaerobes. Vascular surgery following. Patient is currently refusing any surgical int ervention. Overall prognosis is poor with high risk for amputation. Xray negative, unable to get MRI due to indwelling AICD. Of note, patient is non ambulatory. 2) Diabetes mellitus type 2, uncontrolled. Recs: discontinued IV cefepime, Flagyl and vancomycin started IV Zosyn, will cover Enterococcus and Proteus. awaiting amputation, plan to continue abx for 48 hours post amputation depending on surgical findings Rasta Marcum MD, FACP [facility] C: [phone] O: [phone] F: [phone] Subjective Date of service: 07/21/19 Principal diagnosis: diabetic right foot wound. T2DM, malnutrition Interval history: No complaints. Agreeable to surgery and now awaiting amputation of the 4th and 5th toes. Objective - Exam Narrative Exam: Physical Exam: Constitutional: Alert, cooperative. No acute distress Head, Ears, Nose: Normocephalic, atraumatic. External ears, nose normal Eyes: Conjunctivae/corneas clear. No icterus. No ptosis. Neck: Supple, no meningeal signs Oral: Edentulous, no thrush Cardiovascular: S1, S2 normal. Respiratory: Good air entry, clear to auscultation bilaterally GI: Soft, non-tender; bowel sounds normal. No peritoneal signs Musculoskeletal: No pedal edema, no cyanosis. Right lateral foot and fifth toe region with a wound, foul smell and dark appearance, left heel for superficial wound and early decubitus ulcer Skin: No rash or abscess Hem/Lymphatic: No palpable cervical or supraclavicular nodes. No lymphangitis Psych: Mood ok. Affect normal Neurological: Awake, alert, oriented. - Constitutional Vitals: Vital Signs Temp Pulse Resp BP Pulse Ox 98.7 F 83 20 118/43 97 07/21/19 08:05 07/21/19 10:09 07/21/19 08:05 07/21/19 10:09 07/21/19 10:06 Temperature -Last 24 Hours Temperature 98.7 F Temperature 98.9 F Temperature 98.5 F Temperature 98.7 F Temperature 98.1 F - Labs CBC & Chem 7: 07/21/19 05:25 07/21/19 05:25 Labs: Abnormal lab results 07/20/19 07/20/19 07/21/19 Range/Units 17:59 21:15 05:25 RBC 2.45 L (3.65-5.03) M/mm3 Hgb 6.9 L (11.8-15.2) gm/dl Hct 20.9 L (35.5-45.6) % RDW 16.0 H (13.2-15.2) % Plt Count 444 H (140-440) K/mm3 Potassium (3.6-5.0) mmol/L Creatinine (0.8-1.5) mg/dL Glucose (75-100) mg/dL POC Glucose 194 H 235 H (70-105) Calcium (8.4-10.2) mg/dL Phosphorus (2.5-4.5) mg/dL ALT (7-56) units/L Albumin (3.9-5) g/dL Crossmatch 07/21/19 07/21/19 07/21/19 Range/Units 05:25 07:35 11:09 RBC (3.65-5.03) M/mm3 Hgb (11.8-15.2) gm/dl Hct (35.5-45.6) % RDW (13.2-15.2) % Plt Count (140-440) K/mm3 Potassium 3.5 L D (3.6-5.0) mmol/L Creatinine 0.7 L (0.8-1.5) mg/dL Glucose 167 H (75-100) mg/dL POC Glucose 209 H (70-105) Calcium 7.7 L (8.4-10.2) mg/dL Phosphorus 1.30 L (2.5-4.5) mg/dL ALT < 5 L (7-56) units/L Albumin 2.2 L (3.9-5) g/dL Crossmatch See Detail
--- NOTE | 2019-07-21 15:14 | Vascular Lab Report ---
DUPLEX DOPPLER LOWER EXTREMITY ARTERIAL, BILATERAL INDICATION: lower extremity gangrene. Right foot gangrene, fourth and fifth digits. Sores in left lower leg. TECHNIQUE: Arterial duplex examination of both lower extremities performed using B-mode, color flow and spectral Doppler assessment. FINDINGS: RIGHT: Common Femoral Artery: PSV 137 cm/sec. Triphasic waveform. Proximal SFA: PSV 132 cm/sec. Triphasic waveform. Mid SFA: PSV 128 cm/sec. Triphasic waveform. Distal SFA: PSV 117 cm/sec. Monophasic waveform. Popliteal artery: PSV 55 cm/sec. Monophasic waveform. Posterior tibial artery: PSV 100 cm/sec. Monophasic waveform. Anterior tibial artery: PSV 106 cm/s. Monophasic waveform. Dorsalis Pedis Artery: PSV 25 cm/sec. Monophasic waveform. LEFT: Common Femoral Artery: PSV 178 cm/sec. Triphasic waveform. Proximal SFA: PSV 179 cm/sec. Triphasic waveform. Mid SFA: PSV 167 cm/sec. Triphasic waveform. Distal SFA: PSV 102 cm/sec. Triphasic waveform. Popliteal artery: PSV 66 cm/sec. Monophasic waveform. Posterior tibial artery: PSV 73 cm/sec. Monophasic waveform. Anterior tibial artery: PSV 31 cm/s. Monophasic waveform. Dorsalis Pedis Artery: PSV 26 cm/sec. Monophasic waveform. Additional findings: There are moderate irregular partially calcified plaques throughout both lower e xtremity arterial structures. IMPRESSION: Moderate atherosclerotic disease in both lower extremities but no hemodynamically significant stenosi s is identified by Doppler velocities. Doppler Waveform: * Triphasic is normal. * Biphasic is abnormal if clear transition from triphasic signal along vascular tree. * Monophasic is abnormal. Signer Name: Gregory Carrillo Jr, MD Signed: 07/21/2019 3:10 PM Workstation Name: [id number]
--- NOTE | 2019-07-21 15:24 | Vascular Lab Report ---
LOWER EXTREMITY SEGMENTAL ARTERIAL DOPPLER PRESSURE AND PVR STUDY HISTORY: Lower extremity gangrene, right foot gangrene involving fourth and fifth digits. Left lower leg sores. COMPARISON: none TECHNIQUE: Lower extremity segmental arterial doppler pressure and PVR analysis were obtained at [facility] lower extremity levels bilaterally. FINDINGS: RIGHT: Brachial artery peak-systolic pressure: 156 mmHg Posterior tibialis: 76 mmHg Dorsalis pedis: 75 mmHg Right great toe: 34 mmHg MALIK: 0.49 TBI: 0.22 LEFT: Brachial artery peak-systolic pressure: 147 mmHg Posterior tibialis: 124 mmHg Dorsalis pedis: 120 mmHg Left great toe: 59 mmHg MALIK: 0.79 TBI: 0.38 IMPRESSION: ABIs and TBI's as described above. Signer Name: Gregory Carrillo Jr, MD Signed: 07/21/2019 3:20 PM Workstation Name: [id number]
[2019-07-21] MEDS: PIPERACIL/TAZOBACTA 4.5/NS 100 4.5 GM/100 ML VIAL IV SCH ×2 (18:37→22:40)
[2019-07-21] MEDS: PRAVASTATIN 40 MG TAB PO SCH (22:38)
[2019-07-22] MEDS: PIPERACIL/TAZOBACTA 4.5/NS 100 4.5 GM/100 ML VIAL IV SCH ×3 (05:24→22:03)
[2019-07-22] MEDS: D5W/0.45% NACL 1,000 ML IV SCH (05:25)
[2019-07-22 05:53] LABS: Hemoglobin 7.3 gm/dl (11.8-15.2); Mean Corpuscular HGB Conc 33 % (32-34); Mean Corpuscular Volume 85 fl (84-94); Platelet Count 428 K/mm3 (140-440); Red Cell Distribution Width 15.5 % (13.2-15.2)
[2019-07-22 06:16] LABS: Albumin 2.2 g/dL (3.9-5); BUN/Creatinine Ratio 10; Blood Urea Nitrogen 7 mg/dL (9-20); Calcium 7.9 mg/dL (8.4-10.2); Hemolysis Index 1
[2019-07-22 07:38] LABS: Alanine Aminotransferase < 5 units/L (7-56)
[2019-07-22] MEDS: INSULIN LISPRO 100 UNIT/ML SUB-Q SCH ×4 (08:23→22:07)
--- NOTE | 2019-07-22 09:22 | Progress Note ---
Assessment and Plan Patient is a 84 yo man with a history of hypertension, DM type 2 not known to be on medications and functional quadriplegia/bed bound state who presents to [facility] ED with AMS. Patient became confused this morning associated with slurred speech and a period of unresponsiveness. Blood glucose via fingerstick was 22 when EMS checked, they gave him 1 amp of Dextrose and blood sugars increased to 190. Patient brought to the emergency room via EMS for evaluation of decreased responsiveness. EMS stated that patient was unresponsive and drooling on the right side of his mouth. After Dextrose given, patient immediately started waking up. Patient had similar admission beginning of this month. Patient also have a right leg cellulitis and discharged on Augmentin. He was admitted here on 07/05/19 with similar presentation of hypoglycemia and found to have UTI, right foot infection, ARF. He was just discharged on 07/08/19. Patient denies any recent trauma. Wet right foot gangrene with suspected sepsis cellulitis: treat with abx, consult Vascular and Surgeon for amputation, wound care consult wound Cx grew Enterobacter Feacalis and proteus - ID following and on iv antibiotic with Cefepioin, flagyl and Vanc. Amputation of right 4th and 5th toes recommended by surgeon. Pt still considering. Acute metabolic encephalopathy resolved Type 2 DM with hypoglycemic A1c 6.1, resolved: monitor with accuchecks Functional quadriplegia/bed bound: PT/OT Severe malnutrition: consult Director Diabetes ICMP, CAD s/p PCI, with AICD : so no MRI of the foot, order ECHO and consult Cardiology Continue with [facility] Elevated troponin: consult Cardiology, For stress test per cardiology Anemia, chronic: s/p blod transfusion monitor CBC daily Hypokalemia : corrected monitor Hypomagneseimia - corrected Hyponatremia: corrected careful with IVFs, probably history of Cardiomyopathy with ICD, monitor bmp closely DVT PPx SCD only b/c sever anemia Time spent 25 min Subjective Date of service: 07/22/19 Principal diagnosis: diabetic right foot wound. T2DM, , ICMP, malnutrition Interval history: Lying quietly in bed. No fever. Alert and interactive. No chest pain or shortness of breath Objective - Constitutional Vitals: Vital Signs - 12hr 07/21/19 07/22/19 07/22/19 22:40 00:07 02:00 Temperature 98.9 F Pulse Rate 80 93 H 93 H Respiratory 20 Rate Blood Pressure 126/58 111/44 O2 Sat by Pulse 96 Oximetry 07/22/19 07/22/19 04:07 08:10 Temperature 98.9 F 98.4 F Pulse Rate 83 75 Respiratory 20 18 Rate Blood Pressure 112/46 127/62 O2 Sat by Pulse 96 99 Oximetry General appearance: Present: no acute distress, well-nourished - EENT Eyes: PERRL, EOM intact Ears: bilateral: normal - Neck Neck: supple, normal ROM - Respiratory Respiratory effort: normal Respiratory: bilateral: CTA - Cardiovascular Rhythm: regular Heart Sounds: Present: S1 & S2. Absent: gallop, rub Extremity abnormal: pulses diminished, other (diabetic ulcer right foot witjh gangreen of the 4th nd 5th toes) - Gastrointestinal General gastrointestinal: Present: soft, non-tender, non-distended, normal bowel sounds - Integumentary Integumentary: clear, warm, dry, erythema (wound right foot) - Musculoskeletal Musculoskeletal: generalized weakness - Neurologic Neurologic: moves all extremities - Psychiatric Psychiatric: memory intact, appropriate mood/affect, intact judgment & insight - Labs CBC & Chem 7: 07/22/19 04:07 07/22/19 04:07 Labs: Abnormal lab results 07/21/19 07/21/19 07/22/19 Range/Units 11:09 16:43 04:07 RBC 2.60 L (3.65-5.03) M/mm3 Hgb 7.3 L (11.8-15.2) gm/dl Hct 22.0 L (35.5-45.6) % RDW 15.5 H (13.2-15.2) % BUN (9-20) mg/dL Creatinine (0.8-1.5) mg/dL Glucose (75-100) mg/dL POC Glucose 229 H (70-105) Calcium (8.4-10.2) mg/dL ALT (7-56) units/L Total Protein (6.3-8.2) g/dL Albumin (3.9-5) g/dL Crossmatch See Detail 07/22/19 07/22/19 Range/Units 04:07 08:19 RBC (3.65-5.03) M/mm3 Hgb (11.8-15.2) gm/dl Hct (35.5-45.6) % RDW (13.2-15.2) % BUN 7 L (9-20) mg/dL Creatinine 0.7 L (0.8-1.5) mg/dL Glucose 134 H (75-100) mg/dL POC Glucose 160 H (70-105) Calcium 7.9 L (8.4-10.2) mg/dL ALT < 5 L (7-56) units/L Total Protein 6.2 L (6.3-8.2) g/dL Albumin 2.2 L (3.9-5) g/dL Crossmatch
[2019-07-22] MEDS ORDERED: SODIUM CHLORIDE 0.9% 500 ML 500 ML IV NR (10:00)
[2019-07-22] MEDS: PANTOPRAZOLE 40 MG TAB PO SCH (10:23)
[2019-07-22] MEDS: carvediloL 6.25 MG TAB PO SCH ×2 (10:23→22:04)
[2019-07-22] MEDS: LOSARTAN 50 MG TAB PO SCH (10:23)
[2019-07-22] MEDS: ASPIRIN EC 81 MG TAB PO SCH (10:24)
[2019-07-22] MEDS: CILOSTAZOL 100 MG TAB PO SCH ×2 (10:24→22:03)
--- NOTE | 2019-07-22 10:30 | Progress Note ---
Assessment and Plan - Patient Problems (1) Gangrene Current Visit: Yes Status: Suspected Plan to address problem: 1) Transfusion of PRBC's today 2) NPO after MN 3) Amputation of right 4th and 5th toes tomorrow Subjective Date of service: 07/22/19 Patient Reports: Positive: no new complaints Objective Vital Signs - 12hr 07/21/19 07/22/19 07/22/19 22:40 00:07 02:00 Temperature 98.9 F Pulse Rate 80 93 H 93 H Respiratory 20 Rate Blood Pressure 126/58 111/44 O2 Sat by Pulse 96 Oximetry 07/22/19 07/22/19 04:07 08:10 Temperature 98.9 F 98.4 F Pulse Rate 83 75 Respiratory 20 18 Rate Blood Pressure 112/46 127/62 O2 Sat by Pulse 96 99 Oximetry - Integumentary other (No change in right foot exam) - Labs 07/22/19 04:07 07/22/19 04:07 Diabetes panel 07/22/19 Range/Units 04:07 Sodium 138 (137-145) mmol/L Potassium 3.7 (3.6-5.0) mmol/L Chloride 105.3 (98-107) mmol/L Carbon Dioxide 24 (22-30) mmol/L BUN 7 L (9-20) mg/dL Creatinine 0.7 L (0.8-1.5) mg/dL Glucose 134 H (75-100) mg/dL Calcium 7.9 L (8.4-10.2) mg/dL AST 7 (5-40) units/L ALT < 5 L (7-56) units/L Alkaline Phosphatase 91 (35-129) units/L Total Protein 6.2 L (6.3-8.2) g/dL Albumin 2.2 L (3.9-5) g/dL Calcium panel 07/22/19 Range/Units 04:07 Calcium 7.9 L (8.4-10.2) mg/dL Albumin 2.2 L (3.9-5) g/dL Pituitary panel 07/22/19 Range/Units 04:07 Sodium 138 (137-145) mmol/L Potassium 3.7 (3.6-5.0) mmol/L Chloride 105.3 (98-107) mmol/L Carbon Dioxide 24 (22-30) mmol/L BUN 7 L (9-20) mg/dL Creatinine 0.7 L (0.8-1.5) mg/dL Glucose 134 H (75-100) mg/dL Calcium 7.9 L (8.4-10.2) mg/dL Adrenal panel 07/22/19 Range/Units 04:07 Sodium 138 (137-145) mmol/L Potassium 3.7 (3.6-5.0) mmol/L Chloride 105.3 (98-107) mmol/L Carbon Dioxide 24 (22-30) mmol/L BUN 7 L (9-20) mg/dL Creatinine 0.7 L (0.8-1.5) mg/dL Glucose 134 H (75-100) mg/dL Calcium 7.9 L (8.4-10.2) mg/dL Total Bilirubin 0.90 (0.1-1.2) mg/dL AST 7 (5-40) units/L ALT < 5 L (7-56) units/L Alkaline Phosphatase 91 (35-129) units/L Total Protein 6.2 L (6.3-8.2) g/dL Albumin 2.2 L (3.9-5) g/dL
--- NOTE | 2019-07-22 11:10 | Progress Note ---
Assessment and Plan Currently stable cardiac status. Cont present cardiac regimen. For surgery tentatively on . The patient has been seen in conjunction with Dr. Glez who agrees with the assessment and plan of care. - Patient Problems (1) Wound of right leg Current Visit: Yes Status: Acute (2) Gangrene Current Visit: Yes Status: Suspected (3) Altered mental status Current Visit: Yes Status: Resolved (4) Hypoglycemia Current Visit: Yes Status: Resolved (5) CAD (coronary artery disease) Current Visit: Yes Status: Chronic (6) Stented coronary artery Current Visit: Yes Status: Chronic (7) Ischemic cardiomyopathy Current Visit: Yes Status: Chronic (8) Automatic implantable cardioverter-defibrillator in situ Current Visit: Yes Status: Chronic (9) HTN (hypertension) Current Visit: Yes Status: Chronic (10) Hyperlipidemia Current Visit: Yes Status: Chronic (11) Diabetes Current Visit: Yes Status: Chronic (12) Anemia Current Visit: Yes Status: Acute Qualifiers: Anemia type: other cause Other causes of anemia: other cause, not classified Qualified Code(s): D64.89 - Other specified anemias (13) Hypokalemia Current Visit: Yes Status: Acute (14) Elevated troponin Current Visit: Yes Status: Acute (15) Debility Current Visit: Yes Status: Chronic Subjective Date of service: 07/22/19 Principal diagnosis: diabetic right foot wound. T2DM, , ICMP, malnutrition Interval history: pt resting in bed, no current cardiac complaints. in SR on tele. Objective Last Vital Signs Temp 98.4 F 07/22/19 08:10 Pulse 75 07/22/19 08:10 Resp 18 07/22/19 08:10 BP 127/62 07/22/19 08:10 Pulse Ox 99 07/22/19 08:10 - Physical Examination General: No Apparent Distress HEENT: Positive: PERRL, Normocephaly, Mucus Membranes Moist Neck: Positive: neck supple, trachea midline Cardiac: Positive: Reg Rate and Rhythm, S1/S2 Lungs: Positive: Decreased Breath Sounds Neuro: Positive: Grossly Intact Abdomen: Negative: Tender Skin: Positive: Other (right foot wound) Extremities: Present: Other (right foot wound). Absent: edema - Labs and Meds Cardiac Enzymes 07/22/19 Range/Units 04:07 AST 7 (5-40) units/L CBC 07/22/19 Range/Units 04:07 WBC 9.5 (4.5-11.0) K/mm3 RBC 2.60 L (3.65-5.03) M/mm3 Hgb 7.3 L (11.8-15.2) gm/dl Hct 22.0 L (35.5-45.6) % Plt Count 428 (140-440) K/mm3 Comprehensive Metabolic Panel 07/22/19 Range/Units 04:07 Sodium 138 (137-145) mmol/L Potassium 3.7 (3.6-5.0) mmol/L Chloride 105.3 (98-107) mmol/L Carbon Dioxide 24 (22-30) mmol/L BUN 7 L (9-20) mg/dL Creatinine 0.7 L (0.8-1.5) mg/dL Glucose 134 H (75-100) mg/dL Calcium 7.9 L (8.4-10.2) mg/dL AST 7 (5-40) units/L ALT < 5 L (7-56) units/L Alkaline Phosphatase 91 (35-129) units/L Total Protein 6.2 L (6.3-8.2) g/dL Albumin 2.2 L (3.9-5) g/dL - Imaging and Cardiology EKG: report reviewed, image reviewed Echo: report reviewed (05/2019 showed EF 30-35%, mild LVH, RV systolic function mildly reduced, pacemaker wire in right sided chambers. ) Cardiac cath: report reviewed (02/2015 showed mod diffuse nonobstructive CAD with 30-40% prox RCA, 25% mid RCA, 25% distal left circ, EF 40-45%. ) - EKG Sinus rhythms and dysrhythmias: sinus rhythm
--- NOTE | 2019-07-22 13:20 | Progress Note ---
Assessment and Plan Cultures: 07/19/2019 blood culture: no growth wound culture: Enterococcus, Proteus A/P: 84-year-old male with hypertension, diabetes mellitus type 2, s/p AICD placement also with: 1) Right foot diabetic wound infection with concern for underlying gangrene and vascular insufficiency: Patient with foul-smelling wound. Continue broad- spectrum antibiotics to target gram negatives, gram positives and anaerobes. Xray negative, unable to get MRI due to indwelling AICD. Of note, patient is non ambulatory. Awaiting amputation, plan to continue abx for 48 hours post amputation depending on surgical findings 2) Diabetes mellitus type 2, uncontrolled. Recs: continue IV Zosyn, will cover Enterococcus and Proteus. awaiting amputation, plan to continue abx for 48 hours post amputation depending on surgical findings Rasta Marcum MD, FACP [facility] ([facility]) C: [phone] O: [phone] F: [phone] Subjective Date of service: 07/22/19 Principal diagnosis: diabetic right foot wound. T2DM, , ICMP, malnutrition Interval history: No new complaints. Feels well. Awaiting surgery. No diarrhea. No rash. Objective - Exam Narrative Exam: Physical Exam: Constitutional: Alert, cooperative. No acute distress. Comfortable Head, Ears, Nose: Normocephalic, atraumatic. External ears, nose normal Eyes: Conjunctivae/corneas clear. No icterus. No ptosis. Neck: Supple, no meningeal signs Oral: Edentulous, no thrush Cardiovascular: S1, S2 normal. Respiratory: Good air entry, clear to auscultation bilaterally GI: Soft, non-tender; bowel sounds normal. No peritoneal signs Musculoskeletal: No pedal edema, no cyanosis. Right lateral foot and fifth toe region with a wound, foul smell and dark appearance, left heel for superficial wound and early decubitus ulcer with dressing Skin: No rash or abscess Hem/Lymphatic: No palpable cervical or supraclavicular nodes. No lymphangitis Psych: Mood ok. Affect normal Neurological: Awake, alert, oriented. - Constitutional Vitals: Vital Signs Temp Pulse Resp BP Pulse Ox 98.4 F 75 18 127/62 99 07/22/19 08:10 07/22/19 10:00 07/22/19 08:10 07/22/19 08:10 07/22/19 12:25 Temperature -Last 24 Hours Temperature 98.4 F Temperature 98.9 F Temperature 98.9 F Temperature 98.2 F Temperature 98.2 F Temperature 98.0 F Temperature 98.0 F Temperature 98.0 F Temperature 98.0 F Temperature 98.2 F Temperature 98.0 F Temperature 98.0 F Temperature 98.4 F - Labs CBC & Chem 7: 07/22/19 04:07 07/22/19 04:07 Labs: Abnormal lab results 07/21/19 07/21/19 07/22/19 Range/Units 11:09 16:43 04:07 RBC 2.60 L (3.65-5.03) M/mm3 Hgb 7.3 L (11.8-15.2) gm/dl Hct 22.0 L (35.5-45.6) % RDW 15.5 H (13.2-15.2) % BUN (9-20) mg/dL Creatinine (0.8-1.5) mg/dL Glucose (75-100) mg/dL POC Glucose 229 H (70-105) Calcium (8.4-10.2) mg/dL ALT (7-56) units/L Total Protein (6.3-8.2) g/dL Albumin (3.9-5) g/dL Crossmatch See Detail 07/22/19 07/22/19 Range/Units 04:07 08:19 RBC (3.65-5.03) M/mm3 Hgb (11.8-15.2) gm/dl Hct (35.5-45.6) % RDW (13.2-15.2) % BUN 7 L (9-20) mg/dL Creatinine 0.7 L (0.8-1.5) mg/dL Glucose 134 H (75-100) mg/dL POC Glucose 160 H (70-105) Calcium 7.9 L (8.4-10.2) mg/dL ALT < 5 L (7-56) units/L Total Protein 6.2 L (6.3-8.2) g/dL Albumin 2.2 L (3.9-5) g/dL Crossmatch
[2019-07-22] MEDS: PRAVASTATIN 40 MG TAB PO SCH (22:04)
[2019-07-23] MEDS: D5W/0.45% NACL 1,000 ML IV SCH (04:16)
[2019-07-23 04:57] LABS: Basophils # (Auto) 0.1 K/mm3 (0.0-0.1); Basophils % (Auto) 0.6 % (0.0-1.8); Eosinophils # (Auto) 0.3 K/mm3 (0.0-0.4); Eosinophils % (Auto) 3.4 % (0.0-4.3); Hematocrit 24.1 % (35.5-45.6); Hemoglobin 8.2 gm/dl (11.8-15.2); Mean Corpuscular HGB Conc 34 % (32-34); Mean Corpuscular Volume 86 fl (84-94); Monocytes # (Auto) 0.7 K/mm3 (0.0-0.8); Monocytes % (Auto) 7.9 % (0.0-7.3); Platelet Count 431 K/mm3 (140-440); Red Cell Distribution Width 15.6 % (13.2-15.2)
[2019-07-23] MEDS: PIPERACIL/TAZOBACTA 4.5/NS 100 4.5 GM/100 ML VIAL IV SCH ×3 (05:10→22:08)
[2019-07-23 05:16] LABS: Albumin 2.1 g/dL (3.9-5); BUN/Creatinine Ratio 10; Blood Urea Nitrogen 6 mg/dL (9-20); Hemolysis Index 5
[2019-07-23 05:36] LABS: Alanine Aminotransferase < 5 units/L (7-56)
[2019-07-23] MEDS: INSULIN LISPRO 100 UNIT/ML SUB-Q SCH ×4 (08:15→22:10)
[2019-07-23] MEDS: LOSARTAN 50 MG TAB PO SCH (09:59)
[2019-07-23] MEDS: carvediloL 6.25 MG TAB PO SCH ×2 (09:59→22:09)
[2019-07-23] MEDS: PANTOPRAZOLE 40 MG TAB PO SCH (09:59)
[2019-07-23] MEDS: CILOSTAZOL 100 MG TAB PO SCH ×2 (10:00→22:09)
[2019-07-23] MEDS: ASPIRIN EC 81 MG TAB PO SCH (10:00)
--- NOTE | 2019-07-23 10:07 | Progress Note ---
Assessment and Plan Patient is a 84 yo man with a history of hypertension, DM type 2 not known to be on medications and functional quadriplegia/bed bound state who presents to [facility] ED with AMS. Patient became confused this morning associated with slurred speech and a period of unresponsiveness. Blood glucose via fingerstick was 22 when EMS checked, they gave him 1 amp of Dextrose and blood sugars increased to 190. Patient brought to the emergency room via EMS for evaluation of decreased responsiveness. EMS stated that patient was unresponsive and drooling on the right side of his mouth. After Dextrose given, patient immediately started waking up. Patient had similar admission beginning of this month. Patient also have a right leg cellulitis and discharged on Augmentin. He was admitted here on 07/05/19 with similar presentation of hypoglycemia and found to have UTI, right foot infection, ARF. Patient denies any recent trauma. Wet right foot gangrene with suspected sepsis cellulitis: treat with abx, consult Vascular and Surgeon for amputation, wound care consult wound Cx grew Enterobacter Feacalis and proteus - ID following and on iv Zosyn. Await Amputation of right 4th and 5th per recommended by surgeon. Acute metabolic encephalopathy resolved Type 2 DM with hypoglycemic A1c 6.1, resolved: monitor with accuchecks Functional quadriplegia/bed bound: PT/OT Severe malnutrition: consult [employer] ICMP, CAD s/p PCI, with AICD : so no MRI of the foot, order ECHO and consult Cardiology Continue with [facility] meds Elevated troponin: consult Cardiology, For stress test per cardiology Anemia, chronic: s/p blod transfusion monitor CBC daily Hypokalemia : corrected monitor Hypomagneseimia - corrected Hyponatremia: corrected careful with IVFs, probably history of Cardiomyopathy with ICD, monitor bmp closely DVT PPx SCD only b/c sever anemia Time spent 25 min Subjective Date of service: 07/23/19 Principal diagnosis: diabetic right foot wound. T2DM, , ICMP, malnutrition Interval history: Lying quietly in bed. Afebrile. Alert and interactive. No chest pain or shortness of breath Objective - Exam Narrative Exam: Constitutional: Well-nourished well-developed. In no distress Head: Normocephalic atraumatic Eyes: Pupils are equal round and reactive to light Nose: No enlarged turbinates, no septal deviation. Mouth: Moist mucous membranes. Neck: Supple no thyromegaly. No bruit. No JVD Heart: Regular rate and rhythm, S1-S2 normal. No rubs murmurs or gallop Lungs: Clear to auscultation bilaterally. no rales or rhonchi Abdomen: Soft, nontender. Bowel sound are present. Extremities: Gangrenous right fourth and fifth toes. Wound on the right foot stage III Neuro: Alert oriented Oriented x3. No focal sensory or motor deficit. Skin: No rashes or hyperpigmented spots Musculoskeletal system: No joint pain or swelling Hematological: No petechia or subcutanous hemorrhages. Immunological: No multiple septic spots on the skin Lymphatic: No generalized lymphadenopathy Psychiatry: Euthymic. Calm. - Constitutional Vitals: Vital Signs - 12hr 07/22/19 07/22/19 07/22/19 22:04 22:35 23:40 Temperature 98.1 F Pulse Rate 85 86 Pulse Rate [ 85 Apical] Respiratory 18 18 Rate Blood Pressure 120/50 129/66 O2 Sat by Pulse 98 99 Oximetry 07/23/19 07/23/19 04:00 07:16 Temperature 98.3 F 98.1 F Pulse Rate 80 Pulse Rate [ Apical] Respiratory 18 18 Rate Blood Pressure 143/77 129/53 O2 Sat by Pulse 96 Oximetry - Labs CBC & Chem 7: 07/23/19 04:19 07/27/19 16:56 Labs: Abnormal lab results 07/21/19 07/22/19 07/22/19 Range/Units 11:09 18:29 20:51 RBC (3.65-5.03) M/mm3 Hgb (11.8-15.2) gm/dl Hct (35.5-45.6) % RDW (13.2-15.2) % Lymph % (Auto) (13.4-35.0) % [place] % (Auto) (0.0-7.3) % Lymph # (1.2-5.4) K/mm3 Seg Neutrophils % (40.0-70.0) % Potassium (3.6-5.0) mmol/L BUN (9-20) mg/dL Creatinine (0.8-1.5) mg/dL Glucose (75-100) mg/dL POC Glucose 196 H 177 H (70-105) Calcium (8.4-10.2) mg/dL ALT (7-56) units/L Albumin (3.9-5) g/dL Crossmatch See Detail 07/23/19 07/23/19 07/23/19 Range/Units 04:19 04:19 07:23 RBC 2.80 L (3.65-5.03) M/mm3 Hgb 8.2 L (11.8-15.2) gm/dl Hct 24.1 L (35.5-45.6) % RDW 15.6 H (13.2-15.2) % Lymph % (Auto) 12.0 L (13.4-35.0) % [place] % (Auto) 7.9 H (0.0-7.3) % Lymph # 1.0 L (1.2-5.4) K/mm3 Seg Neutrophils % 76.1 H (40.0-70.0) % Potassium 3.2 L (3.6-5.0) mmol/L BUN 6 L (9-20) mg/dL Creatinine 0.6 L (0.8-1.5) mg/dL Glucose 161 H (75-100) mg/dL POC Glucose 148 H (70-105) Calcium 8.0 L (8.4-10.2) mg/dL ALT < 5 L (7-56) units/L Albumin 2.1 L (3.9-5) g/dL Crossmatch
[2019-07-23] MEDS ORDERED: LIDOCAINE (1%) 10 MG/1 ML VIAL 20 ML MDV ONE ×2 (11:04→15:10)
--- NOTE | 2019-07-23 11:24 | Anesthesia Consultation ---
Anesthesia Consult and Med Hx Date of service: 07/23/19 - Airway Anesthetic Teeth Evaluation: Edentulous ROM Head & Neck: Adequate Mental/Hyoid Distance: Adequate Mallampati Class: Class II Intubation Access Assessment: Good - Pulmonary Exam CTA: Yes - Cardiac Exam Cardiac Exam: RRR - Pre-Operative Health Status ASA Pre-Surgery Classification: ASA3 Proposed Anesthetic Plan: General - Pulmonary Hx Smoking: Yes Hx Sleep Apnea: No - Cardiovascular System Hx Hypertension: Yes - Central Nervous System Hx Psychiatric Problems: No - Endocrine Hx Liver Disease: No Hx Hypothyroidism: No Hx Hyperthyroidism: No - Hematic Hx Anemia: No Hx Sickle Cell Disease: No - Other Systems Hx Cancer: No
--- NOTE | 2019-07-23 11:25 | Anesthesia Day of Surgery ---
Anesthesia Day of Surgery - Day of Surgery Patient Examined: Yes Patient H&P Reviewed: Yes Patient is NPO: Yes
[2019-07-23] MEDS ORDERED: LACTATED RINGERS 1,000 ML ONE (11:33)
[2019-07-23] MEDS: LACTATED RINGERS 1,000 ML IV SCH ×2 (11:35→15:26)
--- NOTE | 2019-07-23 11:39 | Progress Note ---
Subjective Date of service: 07/23/19 Principal diagnosis: diabetic right foot wound. T2DM, , ICMP, malnutrition Objective - Constitutional Vitals: Vital Signs - 12hr 07/22/19 07/23/19 07/23/19 23:40 04:00 07:16 Temperature 98.1 F 98.3 F 98.1 F Pulse Rate 86 80 Respiratory 18 18 18 Rate Blood Pressure 129/66 143/77 129/53 O2 Sat by Pulse 99 96 Oximetry 07/23/19 09:59 Temperature Pulse Rate 75 Respiratory Rate Blood Pressure 129/53 O2 Sat by Pulse Oximetry - Labs CBC & Chem 7: 07/23/19 04:19 07/23/19 04:19 Labs: Abnormal lab results 07/21/19 07/22/19 07/22/19 Range/Units 11:09 18:29 20:51 RBC (3.65-5.03) M/mm3 Hgb (11.8-15.2) gm/dl Hct (35.5-45.6) % RDW (13.2-15.2) % Lymph % (Auto) (13.4-35.0) % [place] % (Auto) (0.0-7.3) % Lymph # (1.2-5.4) K/mm3 Seg Neutrophils % (40.0-70.0) % Potassium (3.6-5.0) mmol/L BUN (9-20) mg/dL Creatinine (0.8-1.5) mg/dL Glucose (75-100) mg/dL POC Glucose 196 H 177 H (70-105) Calcium (8.4-10.2) mg/dL ALT (7-56) units/L Albumin (3.9-5) g/dL Crossmatch See Detail 07/23/19 07/23/19 07/23/19 Range/Units 04:19 04:19 07:23 RBC 2.80 L (3.65-5.03) M/mm3 Hgb 8.2 L (11.8-15.2) gm/dl Hct 24.1 L (35.5-45.6) % RDW 15.6 H (13.2-15.2) % Lymph % (Auto) 12.0 L (13.4-35.0) % [place] % (Auto) 7.9 H (0.0-7.3) % Lymph # 1.0 L (1.2-5.4) K/mm3 Seg Neutrophils % 76.1 H (40.0-70.0) % Potassium 3.2 L (3.6-5.0) mmol/L BUN 6 L (9-20) mg/dL Creatinine 0.6 L (0.8-1.5) mg/dL Glucose 161 H (75-100) mg/dL POC Glucose 148 H (70-105) Calcium 8.0 L (8.4-10.2) mg/dL ALT < 5 L (7-56) units/L Albumin 2.1 L (3.9-5) g/dL Crossmatch Medications & Allergies - Medications Allergies/Adverse Reactions: Allergies No Known Allergies Allergy (Verified 07/05/19 11:07) Home Medications: Home Medications Medication Instructions Recorded Confirmed Last Taken Type ALBUTEROL NEB's [Proventil 0.083% 2.5 mg IH BID 07/06/19 07/20/19 07/03/19 15:00 History NEBS] Albuterol Sulfate [Proventil Hfa] 6.7 gm IH BID PRN 07/06/19 07/20/19 Unknown History Aspirin EC [Halfprin EC] 81 mg PO HS 07/06/19 07/20/19 07/03/19 21:00 History Cilostazol [Pletal] 50 mg PO BID 07/06/19 07/20/19 07/03/19 21:00 History Pravastatin Sodium [Pravastatin] 40 mg PO HS 07/06/19 07/20/19 07/03/19 21:00 History Tamsulosin [Flomax] 0.4 mg PO HS 07/06/19 07/20/19 07/03/19 21:00 History Amoxicillin/Potassium Clav 1 each PO BID #10 tablet 07/08/19 07/20/19 Unknown Rx [Augmentin 875-125 Tablet] Metoprolol [Lopressor TAB] 50 mg PO BID #60 tablet 07/08/19 07/20/19 Unknown Rx Vitamin A&D [Ad Ointment] 1 applic TP QDAY #1 tube 07/08/19 07/20/19 Unknown Rx Active Medications: Generic Name Dose Route Start Last Admin Trade Name Freq PRN Reason Stop Dose Admin Acetaminophen 650 mg 07/19/19 09:47 Tylenol PO Q6H PRN Non Cardiac Pain or Temp>100.5 Acetaminophen/Hydrocodone Bitart 1 each 07/19/19 09:47 [place] 5/325 PO Q4H PRN Pain, Moderate (4-6) Aspirin 81 mg 07/21/19 10:00 07/23/19 10:00 Halfprin Ec PO Not Given DAILY AWA Carvedilol 6.25 mg 07/20/19 22:00 07/23/19 09:59 Coreg PO 6.25 mg BID AWA Administration Cilostazol 50 mg 07/20/19 22:00 07/23/19 10:00 Pletal PO Not Given BID AWA Dextrose 50 ml 07/19/19 09:45 D50w (25gm) Syringe IV PRN PRN Hypoglycemia Dextrose/Sodium Chloride 1,000 mls @ 75 mls/hr 07/19/19 10:00 07/23/19 04:16 D5/0.45ns IV 75 mls/hr DIRECT AWA Administration Piperacillin Sod/Tazobactam Sod 4.5 gm in 100 mls @ 200 mls/hr 07/21/19 15:30 07/23/19 05:10 Zosyn/Ns 4.5gm/100ml IV 200 mls/hr Q8HR AWA Administration Protocol Insulin Human Lispro 0 unit 07/19/19 11:30 07/23/19 11:18 Humalog SUB-Q Not Given ACHS AWA Protocol Losartan Potassium 50 mg 07/21/19 10:00 07/23/19 09:59 Cozaar PO 50 mg QDAY AWA Administration Morphine Sulfate 2 mg 07/19/19 09:47 Morphine IV Q4H PRN Pain , Severe (7-10) Ondansetron HCl 4 mg 07/19/19 09:47 Zofran IV Q4H PRN Nausea And Vomiting Pantoprazole Sodium 40 mg 07/19/19 10:00 07/23/19 09:59 Protonix PO 40 mg QDAY AWA Administration Polyethylene Glycol 17 gm 07/19/19 09:47 Miralax 3350 PO QDAY PRN Constipation Pravastatin Sodium 40 mg 07/20/19 22:00 07/22/19 22:04 Pravachol PO 40 mg QHS AWA Administration
--- NOTE | 2019-07-23 11:53 | Progress Note ---
Subjective Date of service: 07/23/19 Principal diagnosis: diabetic right foot wound. T2DM, , ICMP, malnutrition Interval history: patient with bilateral foot ulcers patient non-ambulatory for the past 8-9 months for pain and generalized weakness patient refused to undergo primary amputation as recommended due to non- ambulatory status but is allowing 4-5th toe amputations on the right arterial studies reviewed and spoke to patient at length about likelihood of poor healing following amputation patient still does not want primary amputation but is ok with angiogram with possible intervention to assist with wound healing will plan to take tomorrow to the cath for right leg angio NPO p MN Objective - Constitutional Vitals: Vital Signs - 12hr 07/23/19 07/23/19 07/23/19 04:00 07:16 09:59 Temperature 98.3 F 98.1 F Pulse Rate 80 75 Respiratory 18 18 Rate Blood Pressure 143/77 129/53 129/53 O2 Sat by Pulse 96 Oximetry - Labs CBC & Chem 7: 07/23/19 04:19 07/23/19 04:19 Labs: Abnormal lab results 07/21/19 07/22/19 07/22/19 Range/Units 11:09 18:29 20:51 RBC (3.65-5.03) M/mm3 Hgb (11.8-15.2) gm/dl Hct (35.5-45.6) % RDW (13.2-15.2) % Lymph % (Auto) (13.4-35.0) % [place] % (Auto) (0.0-7.3) % Lymph # (1.2-5.4) K/mm3 Seg Neutrophils % (40.0-70.0) % Potassium (3.6-5.0) mmol/L BUN (9-20) mg/dL Creatinine (0.8-1.5) mg/dL Glucose (75-100) mg/dL POC Glucose 196 H 177 H (70-105) Calcium (8.4-10.2) mg/dL ALT (7-56) units/L Albumin (3.9-5) g/dL Crossmatch See Detail 07/23/19 07/23/19 07/23/19 Range/Units 04:19 04:19 07:23 RBC 2.80 L (3.65-5.03) M/mm3 Hgb 8.2 L (11.8-15.2) gm/dl Hct 24.1 L (35.5-45.6) % RDW 15.6 H (13.2-15.2) % Lymph % (Auto) 12.0 L (13.4-35.0) % [place] % (Auto) 7.9 H (0.0-7.3) % Lymph # 1.0 L (1.2-5.4) K/mm3 Seg Neutrophils % 76.1 H (40.0-70.0) % Potassium 3.2 L (3.6-5.0) mmol/L BUN 6 L (9-20) mg/dL Creatinine 0.6 L (0.8-1.5) mg/dL Glucose 161 H (75-100) mg/dL POC Glucose 148 H (70-105) Calcium 8.0 L (8.4-10.2) mg/dL ALT < 5 L (7-56) units/L Albumin 2.1 L (3.9-5) g/dL Crossmatch Medications & Allergies - Medications Allergies/Adverse Reactions: Allergies No Known Allergies Allergy (Verified 07/05/19 11:07) Home Medications: Home Medications Medication Instructions Recorded Confirmed Last Taken Type ALBUTEROL NEB's [Proventil 0.083% 2.5 mg IH BID 07/06/19 07/20/19 07/03/19 15:00 History NEBS] Albuterol Sulfate [Proventil Hfa] 6.7 gm IH BID PRN 07/06/19 07/20/19 Unknown History Aspirin EC [Halfprin EC] 81 mg PO HS 07/06/19 07/20/19 07/03/19 21:00 History Cilostazol [Pletal] 50 mg PO BID 07/06/19 07/20/19 07/03/19 21:00 History Pravastatin Sodium [Pravastatin] 40 mg PO HS 07/06/19 07/20/19 07/03/19 21:00 History Tamsulosin [Flomax] 0.4 mg PO HS 07/06/19 07/20/19 07/03/19 21:00 History Amoxicillin/Potassium Clav 1 each PO BID #10 tablet 07/08/19 07/20/19 Unknown Rx [Augmentin 875-125 Tablet] Metoprolol [Lopressor TAB] 50 mg PO BID #60 tablet 07/08/19 07/20/19 Unknown Rx Vitamin A&D [Ad Ointment] 1 applic TP QDAY #1 tube 07/08/19 07/20/19 Unknown Rx Active Medications: Generic Name Dose Route Start Last Admin Trade Name Freq PRN Reason Stop Dose Admin Acetaminophen 650 mg 07/19/19 09:47 Tylenol PO Q6H PRN Non Cardiac Pain or Temp>100.5 Acetaminophen/Hydrocodone Bitart 1 each 07/19/19 09:47 [place] 5/325 PO Q4H PRN Pain, Moderate (4-6) Aspirin 81 mg 07/21/19 10:00 07/23/19 10:00 Halfprin Ec PO Not Given DAILY AWA Carvedilol 6.25 mg 07/20/19 22:00 07/23/19 09:59 Coreg PO 6.25 mg BID AWA Administration Cilostazol 50 mg 07/20/19 22:00 07/23/19 10:00 Pletal PO Not Given BID AWA Dextrose 50 ml 07/19/19 09:45 D50w (25gm) Syringe IV PRN PRN Hypoglycemia Dextrose/Sodium Chloride 1,000 mls @ 75 mls/hr 07/19/19 10:00 07/23/19 04:16 D5/0.45ns IV 75 mls/hr DIRECT AWA Administration Piperacillin Sod/Tazobactam Sod 4.5 gm in 100 mls @ 200 mls/hr 07/21/19 15:30 07/23/19 05:10 Zosyn/Ns 4.5gm/100ml IV 200 mls/hr Q8HR AWA Administration Protocol Lactated Ringer's 1,000 mls @ 75 mls/hr 07/23/19 12:00 Lactated Ringers IV DIRECT AWA Insulin Human Lispro 0 unit 07/19/19 11:30 07/23/19 11:18 Humalog SUB-Q Not Given ACHS AWA Protocol Losartan Potassium 50 mg 07/21/19 10:00 07/23/19 09:59 Cozaar PO 50 mg QDAY AWA Administration Midazolam HCl 2 mg 07/23/19 12:00 Versed IV 07/23/19 23:59 PREOP NR Morphine Sulfate 2 mg 07/19/19 09:47 Morphine IV Q4H PRN Pain , Severe (7-10) Ondansetron HCl 4 mg 07/19/19 09:47 Zofran IV Q4H PRN Nausea And Vomiting Pantoprazole Sodium 40 mg 07/19/19 10:00 07/23/19 09:59 Protonix PO 40 mg QDAY AWA Administration Polyethylene Glycol 17 gm 07/19/19 09:47 Miralax 3350 PO QDAY PRN Constipation Pravastatin Sodium 40 mg 07/20/19 22:00 07/22/19 22:04 Pravachol PO 40 mg QHS AWA Administration
[2019-07-23] MEDS ORDERED: MIDAZOLAM 2 MG/2 ML INJ IV NR (12:00)
[2019-07-23] MEDS ORDERED: PROPOFOL 200 MG/20 ML VIAL IV ONE (12:14)
[2019-07-23] MEDS ORDERED: fentaNYL 100 MCG/2 ML INJ ONE (12:14)
[2019-07-23] MEDS ORDERED: BUPIVACAINE/PF (0.5%) 5 MG/1 ML 30 ML VIAL INFILTRATI ONE ×2 (13:00→15:13)
--- NOTE | 2019-07-23 14:07 | Post Operative Note ---
Pre-op diagnosis: Gangrene with abscess of right lateral foot/4th & 5th toes Post-op diagnosis: same Procedure: TMA of right 4th and 5th toes Anesthesia: MAC Surgeon: SHERIN LAWLER Estimated blood loss: minimal Pathology: list (Right 4th and 5th toes and metatarsal heads) Specimen disposition: to lab Condition: stable Disposition: PACU
--- NOTE | 2019-07-23 14:17 | Event Note ---
Date: 07/23/19 Off the floor to OR. Continue antibiotics. Will see in AM.
--- NOTE | 2019-07-23 19:08 | Post Anesthesia Evaluation ---
- Post Anesthesia Evaluation Patient Participated: Yes Airway Patent: Yes Stable Respiratory Function: Yes Nausea/Vomiting: No Temp > 96.8F: Yes Pain Manageable: Yes Adequeate Hydration: Yes Anesthesia Complications: No Block Receding Appropriately: Not Applicable Patient on Ventilator: No
[2019-07-23] MEDS: PRAVASTATIN 40 MG TAB PO SCH (22:10)
[2019-07-24] MEDS: HYDROcodone/ACETAMINOPHEN 5-325 MG TAB PO PRN ×3 (01:19→22:04)
[2019-07-24] MEDS: LACTATED RINGERS 1,000 ML IV SCH ×2 (02:36→22:07)
[2019-07-24 05:30] LABS: BUN/Creatinine Ratio 10; Blood Urea Nitrogen 6 mg/dL (9-20); Calcium 7.9 mg/dL (8.4-10.2)
[2019-07-24 05:31] LABS: Alanine Aminotransferase < 5 units/L (7-56); Albumin 2.2 g/dL (3.9-5); Hemolysis Index 10
[2019-07-24] MEDS: PIPERACIL/TAZOBACTA 4.5/NS 100 4.5 GM/100 ML VIAL IV SCH ×3 (05:45→22:06)
--- NOTE | 2019-07-24 08:47 | Event Note ---
Date: 07/24/19 patient now refusing diagnostic angiogram with possible intervention explained to patient again that he is at significant risk of limb loss due to recent arterial studies patient states he understands and does not want anymore procedures angiogram cancelled and patient sent back to the room we will sign off at this time, please call for any questions/concerns
[2019-07-24] MEDS: ASPIRIN EC 81 MG TAB PO SCH (09:37)
[2019-07-24] MEDS: CILOSTAZOL 100 MG TAB PO SCH ×2 (09:37→22:05)
[2019-07-24] MEDS: PANTOPRAZOLE 40 MG TAB PO SCH (09:37)
[2019-07-24] MEDS: LOSARTAN 50 MG TAB PO SCH (09:38)
[2019-07-24] MEDS: carvediloL 6.25 MG TAB PO SCH ×2 (09:38→22:05)
[2019-07-24] MEDS: INSULIN LISPRO 100 UNIT/ML SUB-Q SCH ×4 (09:39→22:06)
--- NOTE | 2019-07-24 10:47 | Progress Note ---
Assessment and Plan S/p surgery yesterday. Currently stable cardiac status. Cont present cardiac regimen. Nothing further to add from cardiac perspective at this time. Will sign off. Recommend follow up in our office with Dr. Glez within 1-2 weeks of hospital discharge ([phone]). The patient has been seen in conjunction with Dr. Glez who agrees with the assessment and plan of care. - Patient Problems (1) Wound of right leg Current Visit: Yes Status: Acute (2) Gangrene Current Visit: Yes Status: Suspected (3) Altered mental status Current Visit: Yes Status: Resolved (4) Hypoglycemia Current Visit: Yes Status: Resolved (5) CAD (coronary artery disease) Current Visit: Yes Status: Chronic (6) Stented coronary artery Current Visit: Yes Status: Chronic (7) Ischemic cardiomyopathy Current Visit: Yes Status: Chronic (8) Automatic implantable cardioverter-defibrillator in situ Current Visit: Yes Status: Chronic (9) HTN (hypertension) Current Visit: Yes Status: Chronic (10) Hyperlipidemia Current Visit: Yes Status: Chronic (11) Diabetes Current Visit: Yes Status: Chronic (12) Anemia Current Visit: Yes Status: Acute Qualifiers: Anemia type: other cause Other causes of anemia: other cause, not classified Qualified Code(s): D64.89 - Other specified anemias (13) Hypokalemia Current Visit: Yes Status: Acute (14) Elevated troponin Current Visit: Yes Status: Acute (15) Debility Current Visit: Yes Status: Chronic Subjective Date of service: 07/24/19 Principal diagnosis: diabetic right foot wound. T2DM, , ICMP, malnutrition Interval history: pt resting in bed, no current cardiac complaints. in SR on tele. s/p surgery yesterday. Objective Last Vital Signs Temp 97.9 F 07/24/19 07:41 Pulse 78 07/24/19 09:38 Resp 20 07/24/19 09:37 BP 136/58 07/24/19 09:38 Pulse Ox 99 07/24/19 07:41 - Physical Examination General: No Apparent Distress HEENT: Positive: PERRL, Normocephaly, Mucus Membranes Moist Neck: Positive: neck supple, trachea midline Cardiac: Positive: Reg Rate and Rhythm, S1/S2 Lungs: Positive: Decreased Breath Sounds Neuro: Positive: Grossly Intact Abdomen: Negative: Tender Skin: Positive: Other (right foot wound) Extremities: Present: Other (right foot wound). Absent: edema - Labs and Meds Cardiac Enzymes 07/24/19 Range/Units 03:50 AST 8 (5-40) units/L Comprehensive Metabolic Panel 07/24/19 Range/Units 03:50 Sodium 139 (137-145) mmol/L Potassium 3.6 (3.6-5.0) mmol/L Chloride 103.6 (98-107) mmol/L Carbon Dioxide 24 (22-30) mmol/L BUN 6 L (9-20) mg/dL Creatinine 0.6 L (0.8-1.5) mg/dL Glucose 98 (75-100) mg/dL Calcium 7.9 L (8.4-10.2) mg/dL AST 8 (5-40) units/L ALT < 5 L (7-56) units/L Alkaline Phosphatase 89 (35-129) units/L Total Protein 6.4 (6.3-8.2) g/dL Albumin 2.2 L (3.9-5) g/dL - Imaging and Cardiology EKG: report reviewed, image reviewed Echo: report reviewed (05/2019 showed EF 30-35%, mild LVH, RV systolic function mildly reduced, pacemaker wire in right sided chambers. ) Cardiac cath: report reviewed (02/2015 showed mod diffuse nonobstructive CAD with 30-40% prox RCA, 25% mid RCA, 25% distal left circ, EF 40-45%. ) - Telemetry EKG Rhythm: Sinus Rhythm - EKG Sinus rhythms and dysrhythmias: sinus rhythm
--- NOTE | 2019-07-24 13:01 | Progress Note ---
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 Patient refusing diagnostic angiogram with possible intervention. Understands that he remains at high risk of additional amputation. He is non-ambulatory at baseline. Will continue Zosyn for 48 hours post amputation and then switch to PO Augmentin x 7 days. Continue wound care. 2) Diabetes mellitus type 2, uncontrolled. Recs: Continue Zosyn for 48 hours post amputation and then switch to PO Augmentin x 7 days Continue wound care Follow up in ID clinic, remains at high risk of additional amputation Rasta Marcum MD, FACP [facility] ([facility]) C: [phone] O: [phone] F: [phone] Subjective Date of service: 07/24/19 Principal diagnosis: diabetic right foot wound. T2DM, , ICMP, malnutrition Interval history: No fever. Underwent surgery yesterday. Lying in bed, comfortable. No rash, no diarrhea. Objective - Exam Narrative Exam: Physical Exam: Constitutional: Alert, cooperative. No acute distress. Comfortable Head, Ears, Nose: Normocephalic, atraumatic. External ears, nose normal Eyes: Conjunctivae/corneas clear. No icterus. No ptosis. Neck: Supple, no meningeal signs Oral: Edentulous, no thrush Cardiovascular: S1, S2 normal. Respiratory: Good air entry, clear to auscultation bilaterally GI: Soft, non-tender; bowel sounds normal. No peritoneal signs Musculoskeletal: No pedal edema, no cyanosis. Right foot with dressing, s/p 4th and 5th toe amputations, left heel for superficial wound and early decubitus ulcer with dressing Skin: No rash or abscess Hem/Lymphatic: No palpable cervical or supraclavicular nodes. No lymphangitis Psych: Mood ok. Affect normal Neurological: Awake, alert, oriented. - Constitutional Vitals: Vital Signs Temp Pulse Resp BP Pulse Ox 97.7 F 84 20 100/53 97 07/24/19 11:53 07/24/19 11:53 07/24/19 11:53 07/24/19 11:53 07/24/19 11:53 Temperature -Last 24 Hours Temperature 97.7 F Temperature 97.9 F Temperature 98.4 F Temperature 98.1 F Temperature 98.4 F Temperature 97.4 F Temperature 97.9 F - Labs CBC & Chem 7: 07/23/19 04:19 07/24/19 03:50 Labs: Abnormal lab results 07/23/19 07/23/19 07/23/19 Range/Units 14:09 15:45 20:24 BUN (9-20) mg/dL Creatinine (0.8-1.5) mg/dL POC Glucose 139 H 140 H 198 H (70-105) Calcium (8.4-10.2) mg/dL ALT (7-56) units/L Albumin (3.9-5) g/dL 07/24/19 07/24/19 07/24/19 Range/Units 03:50 07:21 11:58 BUN 6 L (9-20) mg/dL Creatinine 0.6 L (0.8-1.5) mg/dL POC Glucose 106 H 125 H (70-105) Calcium 7.9 L (8.4-10.2) mg/dL ALT < 5 L (7-56) units/L Albumin 2.2 L (3.9-5) g/dL
--- NOTE | 2019-07-24 20:30 | Progress Note ---
Assessment and Plan - Patient Problems (1) Anemia Current Visit: Yes Status: Chronic Qualifiers: Anemia type: other cause Other causes of anemia: chronic disease, other Qualified Code(s): D63.8 - Anemia in other chronic diseases classified elsewhere Plan to address problem: Hemoglobin hematocrit stable at 8.6 we'll continue to monitor (2) Cellulitis Current Visit: Yes Status: Acute Plan to address problem: Status post hypertension allergy right 2 toes third and fourth currently stable continue IV antibiotics per ID recommendations (3) Hypoglycemia Current Visit: Yes Status: Acute Plan to address problem: Blood sugars stable continue to monitor for any signs of hypoglycemia and when necessary IV dextrose Subjective Date of service: 07/24/19 Principal diagnosis: diabetic right foot wound. T2DM, , ICMP, malnutrition Interval history: Covering for Dr Deal Patient seen and examined , chart reviewed , Consultants notes reviewed .Patient complaining of pain at site of surgery , denied chest pain and no shortness of breath ,no fever reported Objective - Constitutional Vitals: Vital Signs - 12hr 07/24/19 07/24/19 07/24/19 09:37 09:38 10:00 Temperature Pulse Rate 76 90 Pulse Rate [ 90 Apical] Respiratory 20 20 Rate Respiratory 20 Rate [Left Leg] Respiratory 20 Rate [Right Lower Foot] Blood Pressure 136/58 O2 Sat by Pulse 100 Oximetry 07/24/19 07/24/19 10:37 11:53 Temperature 97.7 F Pulse Rate 84 Pulse Rate [ Apical] Respiratory 20 20 Rate Respiratory Rate [Left Leg] Respiratory Rate [Right Lower Foot] Blood Pressure 100/53 O2 Sat by Pulse 97 Oximetry - Labs CBC & Chem 7: 07/23/19 04:19 07/25/19 04:41 Labs: Abnormal lab results 07/24/19 07/24/19 07/24/19 Range/Units 03:50 07:21 11:58 BUN 6 L (9-20) mg/dL Creatinine 0.6 L (0.8-1.5) mg/dL POC Glucose 106 H 125 H (70-105) Calcium 7.9 L (8.4-10.2) mg/dL ALT < 5 L (7-56) units/L Albumin 2.2 L (3.9-5) g/dL 07/24/19 Range/Units 16:15 BUN (9-20) mg/dL Creatinine (0.8-1.5) mg/dL POC Glucose 165 H (70-105) Calcium (8.4-10.2) mg/dL ALT (7-56) units/L Albumin (3.9-5) g/dL
[2019-07-24] MEDS: PRAVASTATIN 40 MG TAB PO SCH (22:05)
[2019-07-25] MEDS: PIPERACIL/TAZOBACTA 4.5/NS 100 4.5 GM/100 ML VIAL IV SCH ×3 (05:46→21:34)
[2019-07-25 05:58] LABS: Alanine Aminotransferase < 5 units/L (7-56); Albumin 2.1 g/dL (3.9-5); BUN/Creatinine Ratio 13; Blood Urea Nitrogen 9 mg/dL (9-20); Calcium 8.1 mg/dL (8.4-10.2); Hemolysis Index 0
[2019-07-25] MEDS: CILOSTAZOL 100 MG TAB PO SCH ×2 (09:00→21:34)
[2019-07-25] MEDS: ASPIRIN EC 81 MG TAB PO SCH (09:00)
[2019-07-25] MEDS: carvediloL 6.25 MG TAB PO SCH ×2 (09:00→21:36)
[2019-07-25] MEDS: PANTOPRAZOLE 40 MG TAB PO SCH (09:00)
[2019-07-25] MEDS: INSULIN LISPRO 100 UNIT/ML SUB-Q SCH ×4 (09:02→21:35)
[2019-07-25] MEDS: HYDROcodone/ACETAMINOPHEN 5-325 MG TAB PO PRN ×2 (10:12→21:33)
[2019-07-25] MEDS: LACTATED RINGERS 1,000 ML IV SCH (12:43)
[2019-07-25] MEDS: LOSARTAN 50 MG TAB PO SCH (12:44)
--- NOTE | 2019-07-25 14:46 | Progress Note ---
Assessment and Plan - Patient Problems (1) Anemia Current Visit: Yes Status: Chronic Qualifiers: Anemia type: other cause Other causes of anemia: chronic disease, other Qualified Code(s): D63.8 - Anemia in other chronic diseases classified elsewhere Plan to address problem: Hemoglobin hematocrit stable at 8.6 we'll continue to monitor (2) Cellulitis Current Visit: Yes Status: Acute Plan to address problem: Status post hypertension allergy right 2 toes third and fourth currently stable continue IV antibiotics per ID recommendations (3) Hypoglycemia Current Visit: Yes Status: Acute Plan to address problem: Blood sugars stable continue to monitor for any signs of hypoglycemia and when necessary IV dextrose Subjective Date of service: 07/25/19 Principal diagnosis: diabetic right foot wound. T2DM, , ICMP, malnutrition Interval history: Patient feels better ,no new complaints beside ongoing pain at the site of surgery ,no chest pain and no shortness of breath ,vitals is stable Objective - Constitutional Vitals: Vital Signs - 12hr 07/25/19 07/25/19 07/25/19 05:25 05:26 08:20 Temperature 97.7 F 98.0 F Pulse Rate 78 78 Pulse Rate [ Apical] Pulse Rate [ Left Radial] Pulse Rate [ Right Radial] Respiratory 20 16 Rate Blood Pressure 104/45 117/56 O2 Sat by Pulse 100 99 Oximetry 07/25/19 07/25/19 07/25/19 09:00 10:00 11:00 Temperature Pulse Rate 78 80 Pulse Rate [ 78 Apical] Pulse Rate [ 80 Left Radial] Pulse Rate [ 80 Right Radial] Respiratory 18 Rate Blood Pressure 117/56 O2 Sat by Pulse 98 Oximetry 07/25/19 07/25/19 12:36 12:44 Temperature 98.8 F Pulse Rate 84 82 Pulse Rate [ Apical] Pulse Rate [ Left Radial] Pulse Rate [ Right Radial] Respiratory 20 Rate Blood Pressure 133/62 133/62 O2 Sat by Pulse 100 Oximetry General appearance: Present: no acute distress - EENT Eyes: PERRL - Neck Neck: supple, normal ROM - Respiratory Respiratory effort: normal Respiratory: bilateral: CTA - Cardiovascular Rhythm: regular Heart Sounds: Present: S1 & S2 (Right foot dressed no active drainage ) Extremity abnormal: pulses diminished - Gastrointestinal General gastrointestinal: Present: soft, non-tender Rectal Exam: deferred - Genitourinary Male genitourinary: deferred - Integumentary Integumentary: warm, dry - Musculoskeletal Musculoskeletal: strength equal bilaterally - Neurologic Neurologic: CNII-XII intact - Psychiatric Psychiatric: appropriate mood/affect - Labs CBC & Chem 7: 07/23/19 04:19 07/25/19 04:41 Labs: Abnormal lab results 07/24/19 07/24/19 07/25/19 Range/Units 16:15 21:52 04:41 Potassium 3.5 L (3.6-5.0) mmol/L Creatinine 0.7 L (0.8-1.5) mg/dL Glucose 117 H (75-100) mg/dL POC Glucose 165 H 181 H (70-105) Calcium 8.1 L (8.4-10.2) mg/dL ALT < 5 L (7-56) units/L Albumin 2.1 L (3.9-5) g/dL 07/25/19 07/25/19 Range/Units 07:26 11:32 Potassium (3.6-5.0) mmol/L Creatinine (0.8-1.5) mg/dL Glucose (75-100) mg/dL POC Glucose 136 H 153 H (70-105) Calcium (8.4-10.2) mg/dL ALT (7-56) units/L Albumin (3.9-5) g/dL
[2019-07-25] MEDS: PRAVASTATIN 40 MG TAB PO SCH (21:34)
[2019-07-26] MEDS: LACTATED RINGERS 1,000 ML IV SCH ×2 (04:50→22:06)
[2019-07-26] MEDS: PIPERACIL/TAZOBACTA 4.5/NS 100 4.5 GM/100 ML VIAL IV SCH ×3 (05:03→22:06)
[2019-07-26] MEDS: HYDROcodone/ACETAMINOPHEN 5-325 MG TAB PO PRN ×3 (07:26→22:08)
[2019-07-26] MEDS: INSULIN LISPRO 100 UNIT/ML SUB-Q SCH ×4 (07:43→23:24)
--- NOTE | 2019-07-26 08:42 | Progress Note ---
Assessment and Plan - Patient Problems (1) Anemia Current Visit: Yes Status: Chronic Qualifiers: Anemia type: other cause Other causes of anemia: chronic disease, other Qualified Code(s): D63.8 - Anemia in other chronic diseases classified elsewhere Plan to address problem: Hemoglobin hematocrit stable at 8.6 we'll continue to monitor (2) Cellulitis Current Visit: Yes Status: Acute Plan to address problem: Status post hypertension allergy right 2 toes third and fourth currently stable continue IV antibiotics per ID recommendations (3) Hypoglycemia Current Visit: Yes Status: Acute Plan to address problem: Blood sugars stable continue to monitor for any signs of hypoglycemia and when necessary IV dextrose Subjective Date of service: 07/26/19 Principal diagnosis: diabetic right foot wound. T2DM, , ICMP, malnutrition Interval history: Patient seen and examined chart reviewed, consultants notes also were reviewed. Patient denied any new complaint at this time besides poor sleep every night denied chest pain, no shortness of breath still has ongoing pain at site of nettles rgery in the right foot, no fever reported by nursing staff Objective - Exam Narrative Exam: GENERAL: Elderly male resting comfortably in bed not. Not jaundiced no cyanosis HEENT: [Patient is not pale, not jaundiced, not cyanosed. Normocephalic, mucous membranes moist no oral lesions] NECK: [No JVD, no thyroid enlargement and no lymphadenopathy.] CHEST/LUNGS: [Good air exchange bilaterally, no wheeze, no rales and no rhonchi.] [No chest wall tenderness, percussion is normal, symmetrical chest wall.] HEART/CARDIOVASCULAR: [Regular rate and rhythm, S1 and S2 only, no murmur.] ABDOMEN: [Abdomen is soft, nondistended, no guarding, no rebound tenderness, no masses palpable per abdomen, active bowel sounds.] SKIN: [Warm and dry, no rash.] NEURO: [Awake, alert, oriented x3, speech normal. Power 5/5 in all the extremities.] EXTREMITIES: [weak peripheral pulses bilaterally. Right foot with surgical dressing in place no active drainage no bleeding] - Constitutional Vitals: Vital Signs - 12hr 07/25/19 07/25/19 07/25/19 21:36 22:00 23:19 Temperature 98.4 F Pulse Rate 110 H 88 90 Respiratory 18 Rate Blood Pressure 134/57 101/52 O2 Sat by Pulse 99 Oximetry 07/26/19 07/26/19 00:56 03:47 Temperature Pulse Rate 79 78 Respiratory 18 Rate Blood Pressure 110/46 O2 Sat by Pulse 97 Oximetry - Labs CBC & Chem 7: 07/23/19 04:19 07/25/19 04:41 Labs: Abnormal lab results 07/25/19 07/25/19 07/25/19 Range/Units 11:32 16:00 20:40 POC Glucose 153 H 125 H 151 H (70-105) 07/26/19 Range/Units 07:37 POC Glucose 117 H (70-105)
[2019-07-26] MEDS: CILOSTAZOL 100 MG TAB PO SCH ×2 (09:50→22:06)
[2019-07-26] MEDS: PANTOPRAZOLE 40 MG TAB PO SCH (09:50)
[2019-07-26] MEDS: ASPIRIN EC 81 MG TAB PO SCH (09:50)
[2019-07-26] MEDS: LOSARTAN 50 MG TAB PO SCH (15:17)
[2019-07-26] MEDS: carvediloL 6.25 MG TAB PO SCH ×2 (16:20→22:07)
[2019-07-26] MEDS: PRAVASTATIN 40 MG TAB PO SCH (22:07)
[2019-07-27] MEDS: HYDROcodone/ACETAMINOPHEN 5-325 MG TAB PO PRN ×3 (05:12→17:29)
[2019-07-27] MEDS: PIPERACIL/TAZOBACTA 4.5/NS 100 4.5 GM/100 ML VIAL IV SCH (05:33)
[2019-07-27] MEDS: LACTATED RINGERS 1,000 ML IV SCH ×2 (05:49→11:03)
[2019-07-27] MEDS: INSULIN LISPRO 100 UNIT/ML SUB-Q SCH ×4 (07:30→22:26)
--- NOTE | 2019-07-27 08:21 | Progress Note ---
Assessment and Plan - Patient Problems (1) Anemia Current Visit: Yes Status: Chronic Qualifiers: Anemia type: other cause Other causes of anemia: chronic disease, other Qualified Code(s): D63.8 - Anemia in other chronic diseases classified elsewhere Plan to address problem: Hemoglobin hematocrit stable at 8.6 we'll continue to monitor (2) Cellulitis Current Visit: Yes Status: Acute Plan to address problem: The patient has completed 48 hours of IV antibiotics we will now switch over to oral antibiotics prior infectious disease consult on's recommendation. We'll st art arranging for home discharge. Consults case management to arrange for home health and wound CARE (3) Hypoglycemia Current Visit: Yes Status: Acute Plan to address problem: Blood sugars stable continue to monitor for any signs of hypoglycemia and when necessary IV dextrose Subjective Date of service: 07/27/19 Principal diagnosis: diabetic right foot wound. T2DM, , ICMP, malnutrition Interval history: The patient is seen and examined and chart reviewed, patient denied any new complaints no chest pain or shortness of breath and pain at the site of operation is improving no fever no chills reported. Objective - Exam Narrative Exam: GENERAL: Elderly male resting comfortably in bed not. Not jaundiced no cyanosis HEENT: [Patient is not pale, not jaundiced, not cyanosed. Normocephalic, mucous membranes moist no oral lesions] NECK: [No JVD, no thyroid enlargement and no lymphadenopathy.] CHEST/LUNGS: [Good air exchange bilaterally, no wheeze, no rales and no rhonchi.] [No chest wall tenderness, percussion is normal, symmetrical chest wall.] HEART/CARDIOVASCULAR: [Regular rate and rhythm, S1 and S2 only, no murmur.] ABDOMEN: [Abdomen is soft, nondistended, no guarding, no rebound tenderness, no masses palpable per abdomen, active bowel sounds.] SKIN: [Warm and dry, no rash.] NEURO: [Awake, alert, oriented x3, speech normal. Power 5/5 in all the extremities.] EXTREMITIES: [weak peripheral pulses bilaterally. Right foot with surgical dressing in place no active drainage no bleeding] - Constitutional Vitals: Vital Signs - 12hr 07/26/19 07/26/19 07/26/19 22:07 22:08 22:09 Temperature Pulse Rate 88 Pulse Rate [ Apical] Respiratory 20 Rate Respiratory 18 Rate [Right Lower Foot] Blood Pressure 129/62 O2 Sat by Pulse Oximetry 07/26/19 07/26/19 07/26/19 22:23 23:08 23:14 Temperature 98.2 F Pulse Rate 94 H Pulse Rate [ 86 Apical] Respiratory 20 18 18 Rate Respiratory Rate [Right Lower Foot] Blood Pressure 130/64 O2 Sat by Pulse 98 100 Oximetry 07/27/19 07/27/19 07/27/19 04:14 05:12 06:12 Temperature 98.0 F Pulse Rate 84 Pulse Rate [ Apical] Respiratory 18 20 18 Rate Respiratory Rate [Right Lower Foot] Blood Pressure 131/56 O2 Sat by Pulse 99 Oximetry 07/27/19 07:46 Temperature 98.1 F Pulse Rate 85 Pulse Rate [ Apical] Respiratory 18 Rate Respiratory Rate [Right Lower Foot] Blood Pressure 117/57 O2 Sat by Pulse 100 Oximetry - Labs CBC & Chem 7: 07/23/19 04:19 07/25/19 04:41 Labs: Abnormal lab results 07/26/19 07/26/19 07/26/19 Range/Units 11:46 16:31 20:52 POC Glucose 123 H 114 H 124 H (70-105) 07/27/19 Range/Units 08:19 POC Glucose 142 H (70-105)
[2019-07-27] MEDS ORDERED: ALBUTEROL 2.5 MG/3 ML NEBU IH SCH (10:00)
[2019-07-27] MEDS: LOSARTAN 50 MG TAB PO SCH (11:03)
[2019-07-27] MEDS: carvediloL 6.25 MG TAB PO SCH ×2 (11:04→22:25)
[2019-07-27] MEDS: AMOXICILLIN/K CLAV 875/125MG TAB PO SCH ×2 (11:04→22:26)
[2019-07-27] MEDS: PANTOPRAZOLE 40 MG TAB PO SCH (11:04)
[2019-07-27] MEDS: ASPIRIN EC 81 MG TAB PO SCH (11:04)
[2019-07-27] MEDS: METOPROLOL TARTRATE 50 MG TAB PO SCH ×2 (11:04→22:26)
[2019-07-27] MEDS: CILOSTAZOL 100 MG TAB PO SCH ×2 (11:04→22:24)
[2019-07-27] MEDS: VITAMIN A & D OINT 56.7 GM TP SCH (11:09)
--- NOTE | 2019-07-27 14:57 | Progress Note ---
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 Patient refusing diagnostic angiogram with possible intervention. Understands that he remains at high risk of additional amputation. He is non-ambulatory at baseline. Will continue Zosyn for 48 hours post amputation and then switch to PO Augmentin x 7 days. Continue wound care. 2) Diabetes mellitus type 2, uncontrolled. Recs: Complete 7 days of PO Augmentin Continue wound care Follow up in ID clinic, remains at high risk of additional amputation due to underlying peripheral vascular disease Rasta Marcum MD, FACP [facility] C: [phone] O: [phone] F: [phone] Subjective Date of service: 07/27/19 Principal diagnosis: diabetic right foot wound. T2DM, , ICMP, malnutrition Interval history: Feels well. No new complaints. Awaiting discharge with woundVAC. Objective - Exam Narrative Exam: Physical Exam: Constitutional: Alert, cooperative. No acute distress. Comfortable Head, Ears, Nose: Normocephalic, atraumatic. External ears, nose normal Eyes: Conjunctivae/corneas clear. No icterus. No ptosis. Neck: Supple, no meningeal signs Oral: Edentulous, no thrush Cardiovascular: S1, S2 normal. Respiratory: Good air entry, clear to auscultation bilaterally GI: Soft, non-tender; bowel sounds normal. No peritoneal signs Musculoskeletal: No pedal edema, no cyanosis. Right foot with dressing, s/p 4th and 5th toe amputations, left heel for superficial wound and early decubitus ulcer with dressing Skin: No rash or abscess Hem/Lymphatic: No palpable cervical or supraclavicular nodes. No lymphangitis Psych: Mood ok. Affect normal Neurological: Awake, alert, oriented. - Constitutional Vitals: Vital Signs Temp Pulse Resp BP Pulse Ox 97.9 F 66 18 133/84 100 07/27/19 12:39 07/27/19 12:39 07/27/19 12:39 07/27/19 12:39 07/27/19 12:39 Temperature -Last 24 Hours Temperature 97.9 F Temperature 98.1 F Temperature 98.0 F Temperature 98.2 F Temperature 98.2 F Temperature 98.9 F - Labs CBC & Chem 7: 07/23/19 04:19 07/25/19 04:41 Labs: Abnormal lab results 07/26/19 07/26/19 07/27/19 Range/Units 16:31 20:52 08:19 POC Glucose 114 H 124 H 142 H (70-105) 07/27/19 Range/Units 11:02 POC Glucose 172 H (70-105)
[2019-07-27] MEDS: ALBUTEROL 2.5 MG/3 ML NEBU IH SCH (19:24)
[2019-07-27] MEDS ORDERED: TAMSULOSIN 0.4 MG CAP PO SCH (22:00)
[2019-07-27] MEDS ORDERED: PRAVASTATIN SODIUM 40 MG PO SCH (22:00)
[2019-07-27] MEDS ORDERED: PRAVASTATIN 40 MG TAB PO SCH (22:00)
[2019-07-28] MEDS: HYDROcodone/ACETAMINOPHEN 5-325 MG TAB PO PRN ×2 (00:28→13:10)
[2019-07-28] MEDS: LACTATED RINGERS 1,000 ML IV SCH (01:10)
[2019-07-28] MEDS: ALBUTEROL 2.5 MG/3 ML NEBU IH SCH (07:57)
--- NOTE | 2019-07-28 08:55 | Discharge Summary ---
Providers - Providers Date of Admission: 07/19/19 08:43 Date of discharge: 07/28/19 Attending physician: YU LYON 07/19/19 09:49 Consult to Physician [CONS] Routine Comment: Consulting Provider: VALENTINA GARY Physician Instructions: Reason For Exam: check AICD, elevated troponin, ?CHF Consult to Physician [CONS] Routine Comment: Consulting Provider: YORDAN RYDER Physician Instructions: Reason For Exam: sepsis, leg and foot infection 07/19/19 09:51 Consult to Dietitian/Nutrition [CONS] Routine Physician Instructions: Reason For Exam: Reason for Consult: Malnutrition Consult to Physician [CONS] Routine Comment: Consulting Provider: CHEN HADLEY Physician Instructions: Reason For Exam: evaluate for PAD, possible rt foot amputation Consult to Physician [CONS] Routine Comment: Consulting Provider: SHERIN LAWLER Physician Instructions: Reason For Exam: Wet right foot gangrene Consult to Wound/ET Nurse [CONS] Routine Reason For Exam: wound eval 07/27/19 08:21 Consult to Case Management [CONS] Urgent Services Needed at Discharge: Home Health Services Notified:: notified nurse taking care of the patient Was contact made?: No Additional Physician Instructions: Consult case management to arrange for home health wound care physical therapy. We will plan discharge for tomorrow 07/28/2019 Primary care physician: YU LYON Hospitalization Reason for admission: altered mental status, infection and right foot with cellulitis Condition: Stable Pertinent studies: CT scan of the brain which was negative with negative for CVA of cranial lesion Echocardiogram shows depressed systolic function with ejection fraction 30-35% Arterial Doppler of the lower extremity wishes moderate atherosclerosis but no hemodynamically significant stenosis to the blood flow Extremity under adequate we should extensive soft tissue swelling but no obvious sign of osteomyelitis or periostitis Hospital course: 84-year-old male patient of Dr. Lyon who was admitted via the emergency room after the EMS was called. Patient was found unresponsive and drooling from one side of the mouth . EMS found him to have low blood sugar with blood sugar of 25 and patient was given D50 with some prompt improvement patient was also noted to have foul-smelling draining wound of the right foot for which patient had been previously hospitalized earlier in the month treated and on discharge on oral antibiotics and home wound care. Patient was evaluated in the emergency room including CT scan of the brain which was essentially negative for any intracranial bleed or intracranial lesion patient showed signs of sepsis secondary to the cellulitis of the right foot with possible underlying osteomyelitis of the 3 lateral digits. Patient was admitted and started on IV antibiotics Zosyn IV and infectious di sease consultation was obtained as well as consultation with orthopedic surgery. Patient was continued on IV antibiotics and scheduled to have amputation transmetatarsal amputation of the right fourths to including the 3 lateral digits was performed and patient was continued on IV antibiotics and wound care. Patient completed 7 days of IV antibiotics and was switched over to oral antibiotics Augmentin patient has remained afebrile, initial leukocytosis subsided and patient is alert blood sugars remained stable since hospitalization and patient has been afebrile assessed to be stable enough to be discharged home on oral antibiotics to continue wound care and home health patient was in his initiated assess for possible wound VAC but this was deemed to be not indicated at this time and wound care will be continued as well as on antibiotics for a total of 7 days. Patient is advised to follow weights his primary care physician Say Robles covering Disposition: [id number] HOME UNDER HOME HLTH - Discharge Diagnoses (1) Anemia Status: Chronic Qualifiers: Anemia type: other cause Other causes of anemia: chronic disease, other Qualified Code(s): D63.8 - Anemia in other chronic diseases classified elsewhere (2) Cellulitis Status: Chronic Qualifiers: Site of cellulitis of extremity: lower extremity Laterality: right (3) Hypoglycemia Status: Resolved Comment: Hypoglycemia secondary to sepsis now resolved Core Measure Documentation - Palliative Care Palliative Care/ Comfort Measures: Not Applicable - Core Measures Any of the following diagnoses?: history only Exam - Physical Exam Narrative exam: GENERAL: Elderly male resting comfortably in bed not. Not jaundiced no cyanosis HEENT: [Patient is not pale, not jaundiced, not cyanosed. Normocephalic, mucous membranes moist no oral lesions] NECK: [No JVD, no thyroid enlargement and no lymphadenopathy.] CHEST/LUNGS: [Good air exchange bilaterally, no wheeze, no rales and no rhonchi.] [No chest wall tenderness, percussion is normal, symmetrical chest wall.] HEART/CARDIOVASCULAR: [Regular rate and rhythm, S1 and S2 only, no murmur.] ABDOMEN: [Abdomen is soft, nondistended, no guarding, no rebound tenderness, no masses palpable per abdomen, active bowel sounds.] SKIN: [Warm and dry, no rash.] NEURO: [Awake, alert, oriented x3, speech normal. Power 5/5 in all the extremities.] EXTREMITIES: [weak peripheral pulses bilaterally. Right foot with surgical dressing in place no active drainage no bleeding] - Constitutional Vitals: Temp Pulse Resp BP Pulse Ox 98.6 F 84 18 129/54 100 07/28/19 07:46 07/28/19 07:58 07/28/19 07:58 07/28/19 07:46 07/28/19 08:00 Plan Activity: up only with assistance, fall precautions Weight Bearing Status: Non-Weight Bearing Diet: low salt Wound: per wound nurse instructions Durable Medical Equipment Needed Upon Discharge: Wheelchair Plan of Treatment: Follow-up with home health for wound care and physical therapy for acute infectious disease as well as with primary care physician Follow up with: SCOTTY ABBOTTRUGBY MD GAIL [Referring] - 3-5 Days Prescriptions: Amoxicillin/K Clav Tab [Augmentin 875MG TAB] 1 each PO Q12HR #20 tablet HYDROcodone/APAP 5-325 [[place] 5-325 mg TAB] 1 each PO Q4H PRN #30 tablet PRN Reason: Pain, Moderate (4-6)
[2019-07-28] MEDS: INSULIN LISPRO 100 UNIT/ML SUB-Q SCH ×2 (09:01→16:22)
[2019-07-28] MEDS: LOSARTAN 50 MG TAB PO SCH (09:02)
[2019-07-28] MEDS: CILOSTAZOL 100 MG TAB PO SCH (09:02)
[2019-07-28] MEDS: AMOXICILLIN/K CLAV 875/125MG TAB PO SCH (09:02)
[2019-07-28] MEDS: ASPIRIN EC 81 MG TAB PO SCH (09:02)
[2019-07-28] MEDS: carvediloL 6.25 MG TAB PO SCH (09:03)
[2019-07-28] MEDS: METOPROLOL TARTRATE 50 MG TAB PO SCH (09:03)
[2019-07-28] MEDS: VITAMIN A & D OINT 56.7 GM TP SCH (09:04)
[2019-07-28] MEDS: PANTOPRAZOLE 40 MG TAB PO SCH (09:04)
--- NOTE | 2019-07-28 11:38 | Procedure Note ---
Date of procedure: 07/23/19 Pre-op diagnosis: Gangrene/abscess of right 4th and 5th toes Post-op diagnosis: same Procedure: TMA of right 4th and 5th toes Description of procedure: Pt was placed supine on the OR table. MAC anesthesia was administered. Right foot was prepped and draped. Skin and SQ tissue at the proposed incision was infiltrated with 10 ml of 0.5% Marcaine. A tear drop incision was made about the 4th and 5th toes and the lateral foot. An abscess was encountered and this was drained and cultured. Hemostasis was obtained with the Bovie. Periosteum was elevated off of the distal 4th and 5th metatarsal shafts and the distal metatarsal shafts amputated with a bone saw. Additional necrotic SQ tissue, muscle and fascia were sharply debrided. Wound was irrigated with warm saline. Wound was packed open with a dilute, Betadine moistened Kerlix roll followed by a dry Kerlix roll. Pt tolerated the procedure well. Pt was taken to PACU in stable condition. Anesthesia: MAC Surgeon: SHERIN LAWLER Estimated blood loss: minimal Pathology: list (Right 4th and 5th toes and metatarsal heads) Specimen disposition: to lab Condition: stable Disposition: PACU
[2019-07-28 12:16] VITALS: BP 117/52
--- NOTE | 2019-07-28 14:34 | Progress Note ---
Assessment and Plan - Patient Problems (1) Gangrene Current Visit: Yes Status: Suspected Plan to address problem: 1) Continue wound care 2) F/u after discharge in the Wound Clinic 3) Pt will ultimately require a major amputation. Subjective Date of service: 07/28/19 Patient Reports: Positive: no new complaints Objective Vital Signs - 12hr 07/28/19 07/28/19 07/28/19 03:50 07:46 07:58 Temperature 98.1 F 98.6 F Pulse Rate 80 78 Pulse Rate [ 84 Anterior Bilateral Throughout] Pulse Rate [ 80 Anterior Bilateral] Respiratory 18 18 Rate Respiratory 18 Rate [Anterior Bilateral Throughout] Respiratory 16 Rate [Anterior Bilateral] Blood Pressure 108/47 129/54 O2 Sat by Pulse 100 100 Oximetry 07/28/19 07/28/19 07/28/19 08:00 09:02 09:03 Temperature Pulse Rate 77 77 Pulse Rate [ Anterior Bilateral Throughout] Pulse Rate [ Anterior Bilateral] Respiratory Rate Respiratory Rate [Anterior Bilateral Throughout] Respiratory Rate [Anterior Bilateral] Blood Pressure 129/54 129/54 O2 Sat by Pulse 100 Oximetry 07/28/19 11:06 Temperature 97.9 F Pulse Rate 75 Pulse Rate [ Anterior Bilateral Throughout] Pulse Rate [ Anterior Bilateral] Respiratory 18 Rate Respiratory Rate [Anterior Bilateral Throughout] Respiratory Rate [Anterior Bilateral] Blood Pressure 117/52 O2 Sat by Pulse 100 Oximetry - Integumentary other (Right lateral foot wound is fairly clean. Pt has necrotic tissue on his right heel as well but he refuses to consider further surgery and/or debridement.) - Labs 07/23/19 04:19 07/27/19 16:56 Diabetes panel 07/27/19 Range/Units 16:56 Glucose 126 H (75-100) mg/dL Pituitary panel 07/27/19 Range/Units 16:56 Glucose 126 H (75-100) mg/dL Adrenal panel 07/27/19 Range/Units 16:56 Glucose 126 H (75-100) mg/dL
== END 2019-07-28 16:05 | disposition home health service (06) | DRG 853 ==
LOC: ED 06:37 → 4A 08:43
PROVIDERS: ADMIT Internal Medicine; ATTEND Family Medicine
PROC: 30233N1 Transfusion of Nonautologous Red Blood Cells into Peripheral Vein, Percutaneous Approach (ICD-10-PCS; 2019-07-21)
PROC: 0Y6M0ZD Detachment at Right Foot, Partial 4th Ray, Open Approach (ICD-10-PCS; principal; 2019-07-28)
PROC: 0Y6M0ZF Detachment at Right Foot, Partial 5th Ray, Open Approach (ICD-10-PCS; 2019-07-28)
DX: A41.9 Sepsis, unspecified organism (principal); G93.41 Metabolic encephalopathy; R53.2 Functional quadriplegia; E43 Unspecified severe protein-calorie malnutrition; E11.641 Type 2 diabetes mellitus with hypoglycemia with coma; E87.1 Hypo-osmolality and hyponatremia; L03.115 Cellulitis of right lower limb; M86.8X7 Other osteomyelitis, ankle and foot; E11.52 Type 2 diabetes mellitus with diabetic peripheral angiopathy with gangrene; I70.261 Atherosclerosis of native arteries of extremities with gangrene, right leg; E87.6 Hypokalemia; E11.69 Type 2 diabetes mellitus with other specified complication; D63.8 Anemia in other chronic diseases classified elsewhere; I25.10 Atherosclerotic heart disease of native coronary artery without angina pectoris; M19.90 Unspecified osteoarthritis, unspecified site; J44.9 Chronic obstructive pulmonary disease, unspecified; I11.0 Hypertensive heart disease with heart failure; I50.9 Heart failure, unspecified; E78.5 Hyperlipidemia, unspecified; E83.42 Hypomagnesemia; I25.5 Ischemic cardiomyopathy; S91.301A Unspecified open wound, right foot, initial encounter; X58.XXXA Exposure to other specified factors, initial encounter; Y93.89 Activity, other specified; Y92.89 Other specified places as the place of occurrence of the external cause; Z95.810 Presence of automatic (implantable) cardiac defibrillator; Y99.8 Other external cause status
CPT/HCPCS: 36415; 70450; 71045; 80048; 80053; 80061; 80076; 80320; 81001; 82140; 82947; 82962; 83036; 83735; 84100; 84443; 84484; 85025; 85027; 85610; 85730; 86850; 86900; 86901; 86920; 87040; 87075; 87076; 87116; 87186; 88302; 88304; 88305; 88311; 93005; 93010; 93306; 93922; 93925; 94640; 94760; 96365; G0378; A6250; A9270-GY; G0480; J0692; J1815; J2270; J2543; J2704; J2785; J3010; J3370; J3475; J3480; J7040; J7050; J7070; J7120; P9016

== ENCOUNTER 2019-10-14 21:21 | Inpatient (IN) | payer MEDICARE ==
--- NOTE | 2019-10-14 22:30 | Emergency Department Report ---
ED Shortness of Breath HPI - General Chief Complaint: Dyspnea/Respdistress Stated Complaint: SOB Time Seen by Provider: 10/14/19 21:43 Source: patient, EMS Mode of arrival: Stretcher Limitations: No Limitations - History of Present Illness Initial Comments: 84-year-old with history of HTN, DM, CKD, anemia, CAD, cardiomyopathy with AICD and EF of 30-35%, functional quadriplegia, presents to ED with shortness of breath 2 days. Patient denies fever or cough. He denies any chest pain. MD Complaint: shortness of breath -: days(s) (2) Severity: moderate Consistency: intermittent Improves With: nothing Worsens With: nothing Known History Of: congestive heart failure - Related Data Home Oxygen Therapy: No Home Medications Medication Instructions Recorded Confirmed Last Taken ALBUTEROL NEB's [Proventil 0.083% 2.5 mg IH BID 07/06/19 07/20/19 07/03/19 15:00 NEBS] Aspirin EC [Halfprin EC] 81 mg PO HS 07/06/19 07/20/19 07/03/19 21:00 Cilostazol [Pletal] 50 mg PO BID 07/06/19 07/20/19 07/03/19 21:00 Pravastatin Sodium [Pravastatin] 40 mg PO HS 07/06/19 07/20/19 07/03/19 21:00 Tamsulosin [Flomax] 0.4 mg PO HS 07/06/19 07/20/19 07/03/19 21:00 Previous Rx's Medication Instructions Recorded Last Taken Type Amoxicillin/Potassium Clav 1 each PO BID #10 tablet 07/08/19 Unknown Rx [Augmentin 875-125 Tablet] Metoprolol [Lopressor TAB] 50 mg PO BID #60 tablet 07/08/19 Unknown Rx Vitamin A&D [Ad Ointment] 1 applic TP QDAY #1 tube 07/08/19 Unknown Rx ALBUTEROL NEB's [Proventil 0.083% 2.5 mg IH BIDRT nebu 07/28/19 Unknown Rx NEBS] Amoxicillin/K Clav Tab [Augmentin 1 each PO Q12HR #20 tablet 07/28/19 Unknown Rx 875MG TAB] Aspirin EC [Halfprin EC] 81 mg PO DAILY tablet 07/28/19 Unknown Rx Cilostazol [Pletal] 50 mg PO BID tablet 07/28/19 Unknown Rx HYDROcodone/APAP 5-325 [[place] 1 each PO Q4H PRN #30 tablet 07/28/19 Unknown Rx 5-325 mg TAB] Lispro Insulin [HumaLOG] 0 unit SUB-Q ACHS units 07/28/19 Unknown Rx Losartan [Cozaar] 50 mg PO QDAY tablet 07/28/19 Unknown Rx Metoprolol [Lopressor TAB] 50 mg PO BID tablet 07/28/19 Unknown Rx Pantoprazole [Protonix TAB] 40 mg PO QDAY tablet 07/28/19 Unknown Rx Polyethylene Glycol 3350 [Miralax 17 gm PO QDAY PRN powd.pack 07/28/19 Unknown Rx 3350] Pravastatin [Pravachol] 40 mg PO QHS tablet 07/28/19 Unknown Rx Tamsulosin [Flomax] 0.4 mg PO HS capsule 07/28/19 Unknown Rx Vitamin A&D [Ad Ointment] 1 applic TP QDAY tube 07/28/19 Unknown Rx carvediloL [Coreg] 6.25 mg PO BID tablet 07/28/19 Unknown Rx Allergies Allergy/AdvReac Type Severity Reaction Status Date / Time No Known Allergies Allergy Verified 07/05/19 11:07 ED Review of Systems ROS: Stated complaint: SEPSIS Other details as noted in HPI Comment: All other systems reviewed and negative Constitutional: denies: chills, fever Respiratory: shortness of breath. denies: cough Cardiovascular: denies: chest pain Gastrointestinal: denies: nausea, vomiting ED Past Medical Hx - Past Medical History Previous Medical History?: Yes Hx Hypertension: Yes Hx Diabetes: Yes Hx Liver Disease: No Hx Sickle Cell Disease: No Hx Arthritis: Yes (Rt hip) Additional medical history: defib. - Surgical History Past Surgical History?: No - Social History Smoking Status: Never Smoker Substance Use Type: None - Medications Home Medications: Home Medications Medication Instructions Recorded Confirmed Last Taken Type ALBUTEROL NEB's [Proventil 0.083% 2.5 mg IH BID 07/06/19 07/20/19 07/03/19 15:00 History NEBS] Aspirin EC [Halfprin EC] 81 mg PO HS 07/06/19 07/20/19 07/03/19 21:00 History Cilostazol [Pletal] 50 mg PO BID 0907/20/19 07/03/19 21:00 History Pravastatin Sodium [Pravastatin] 40 mg PO HS 07/06/19 07/20/19 07/03/19 21:00 History Tamsulosin [Flomax] 0.4 mg PO HS 07/06/19 07/20/19 07/03/19 21:00 History Amoxicillin/Potassium Clav 1 each PO BID #10 tablet 07/08/19 07/20/19 Unknown Rx [Augmentin 875-125 Tablet] Metoprolol [Lopressor TAB] 50 mg PO BID #60 tablet 07/08/19 07/20/19 Unknown Rx Vitamin A&D [Ad Ointment] 1 applic TP QDAY #1 tube 07/08/19 07/20/19 Unknown Rx ALBUTEROL NEB's [Proventil 0.083% 2.5 mg IH BIDRT nebu 07/28/19 Unknown Rx NEBS] Amoxicillin/K Clav Tab [Augmentin 1 each PO Q12HR #20 tablet 07/28/19 Unknown Rx 875MG TAB] Aspirin EC [Halfprin EC] 81 mg PO DAILY tablet 07/28/19 Unknown Rx Cilostazol [Pletal] 50 mg PO BID tablet 07/28/19 Unknown Rx HYDROcodone/APAP 5-325 [[place] 1 each PO Q4H PRN #30 tablet 07/28/19 Unknown Rx 5-325 mg TAB] Lispro Insulin [HumaLOG] 0 unit SUB-Q ACHS units 07/28/19 Unknown Rx Losartan [Cozaar] 50 mg PO QDAY tablet 07/28/19 Unknown Rx Metoprolol [Lopressor TAB] 50 mg PO BID tablet 07/28/19 Unknown Rx Pantoprazole [Protonix TAB] 40 mg PO QDAY tablet 07/28/19 Unknown Rx Polyethylene Glycol 3350 [Miralax 17 gm PO QDAY PRN powd.pack 07/28/19 Unknown Rx 3350] Pravastatin [Pravachol] 40 mg PO QHS tablet 07/28/19 Unknown Rx Tamsulosin [Flomax] 0.4 mg PO HS capsule 07/28/19 Unknown Rx Vitamin A&D [Ad Ointment] 1 applic TP QDAY tube 07/28/19 Unknown Rx carvediloL [Coreg] 6.25 mg PO BID tablet 07/28/19 Unknown Rx ED Physical Exam - General Limitations: No Limitations General appearance: alert, in no apparent distress - Head Head exam: Present: atraumatic, normocephalic - Eye Eye exam: Present: normal appearance, EOMI - ENT ENT exam: Present: mucous membranes moist - Neck Neck exam: Present: normal inspection - Respiratory Respiratory exam: Present: rales (slight rales bilat bases). Absent: respiratory distress - Cardiovascular Cardiovascular Exam: Present: regular rate, normal rhythm - GI/Abdominal GI/Abdominal exam: Present: soft. Absent: distended, tenderness - Extremities Exam Extremities exam: Present: other (right foot s/p 4th and 5th toe amputations w/ open wounds, this area is pink w/ some purulence at the peripheral edges; wound on the right heel with intact eschar present; open wound on anterior right foot w/ some purulence present; left heel wound w/ eschar) - Neurological Exam Neurological exam: Present: alert, oriented X3 - Psychiatric Psychiatric exam: Present: normal affect, normal mood - Skin Skin exam: Present: warm, dry ED Course Vital Signs 10/14/19 10/14/19 10/14/19 21:40 22:30 23:00 Temperature 97.6 F Pulse Rate 99 H 95 H 94 H Respiratory 18 24 18 Rate Blood Pressure 137/78 144/81 145/85 Blood Pressure 137/78 [Right] O2 Sat by Pulse 95 92 99 Oximetry 10/14/19 10/15/19 10/15/19 23:46 00:00 00:30 Temperature Pulse Rate 92 H 97 H 96 H Respiratory 14 24 14 Rate Blood Pressure 140/79 140/84 143/81 Blood Pressure [Right] O2 Sat by Pulse 95 94 96 Oximetry 10/15/19 10/15/19 10/15/19 01:00 01:30 01:46 Temperature Pulse Rate 93 H 91 H 101 H Respiratory 13 22 24 Rate Blood Pressure 141/86 140/86 170/96 Blood Pressure [Right] O2 Sat by Pulse 99 100 95 Oximetry 10/15/19 10/15/19 10/15/19 02:30 02:46 03:30 Temperature Pulse Rate 95 H 93 H 95 H Respiratory 24 21 19 Rate Blood Pressure 131/83 128/99 123/82 Blood Pressure [Right] O2 Sat by Pulse 98 100 100 Oximetry ED Medical Decision Making - Lab Data Result diagrams: 10/16/19 04:47 10/16/19 04:47 - EKG Data -: EKG Interpreted by Me EKG shows normal: sinus rhythm Rate: normal - EKG Data Interpretation: other (intraventricular conduction delay; prolonged QT and NC intervals; old inferior infarct) - Radiology Data Radiology results: report reviewed, image reviewed - Medical Decision Making - hx CHF, presents w/ SOB - rales on exam - denies chest pain; troponin slightly elevated, no ST changes on EKG - pulm edema on CXR, BNP elevated - IV Lasix given - potassium repleted - admit to hospitalist, Dr Claudio - Differential Diagnosis CHF, ACS, pneumonia Critical Care Time: Yes Critical care time in (mins) excluding proc time.: 35 Critical care attestation.: If time is entered above; I have spent that time in minutes in the direct care of this critically ill patient, excluding procedure time. Critical Care Time: 35 min ED Disposition Clinical Impression: Acute exacerbation of CHF (congestive heart failure), Pulmonary edema, Hypokalemia, Elevated troponin Disposition: DC-09 OP ADMIT IP TO THIS HOSP Is pt being admited?: Yes Condition: Stable
[2019-10-14 23:17] LABS: Basophils # (Auto) 0.1 K/mm3 (0.0-0.1); Basophils % (Auto) 1.5 % (0.0-1.8); Eosinophils % (Auto) 0.5 % (0.0-4.3); Hematocrit 33.2 % (35.5-45.6); Lymphocytes # (Auto) 0.7 K/mm3 (1.2-5.4); Lymphocytes % (Auto) 11.1 % (13.4-35.0); Mean Corpuscular HGB Conc 33 % (32-34); Mean Corpuscular Volume 90 fl (84-94); Monocytes # (Auto) 0.4 K/mm3 (0.0-0.8); Monocytes % (Auto) 6.8 % (0.0-7.3); Platelet Count 233 K/mm3 (140-440); Red Blood Count 3.68 M/mm3 (3.65-5.03); Red Cell Distribution Width 16.8 % (13.2-15.2)
[2019-10-14 23:25] LABS: INR 1.3 (0.87-1.13); Partial Thromboplastin Time 31.7 Sec. (24.2-36.6)
[2019-10-14 23:40] LABS: BUN/Creatinine Ratio 20; Blood Urea Nitrogen 12 mg/dL (9-20); Calcium 8.4 mg/dL (8.4-10.2); Hemolysis Index 4
[2019-10-14] MEDS ORDERED: ASPIRIN 325 MG TAB PO ONE (23:47)
[2019-10-14] MEDS ORDERED: POTASSIUM CHLORIDE ER 20 MEQ TAB PO ONE (23:48)
--- NOTE | 2019-10-14 23:56 | XRay Report ---
CHEST 1 VIEW 10/14/2019 11:07 PM INDICATION / CLINICAL INFORMATION: sob. COMPARISON: One view of the chest from 07/19/2019. FINDINGS: SUPPORT DEVICES: Stable left ICD. HEART / MEDIASTINUM: The cardiac silhouette is markedly larger. There is similar aortic atheroscleros is. LUNGS / PLEURA: Generalized bilateral pulmonary opacities are noted with a moderate right pleural eff usion and small left pleural effusion. No pneumothorax. ADDITIONAL FINDINGS: No significant additional findings. IMPRESSION: 1. Marked increase in size of the cardiac silhouette. 2. Generalized bilateral pulmonary opacities may represent edema/atelectasis. 3. Bilateral pleural effusions, right greater than left. Signer Name: Jarrod Lin MD Signed: 10/14/2019 11:52 PM Workstation Name: [id number]
[2019-10-15] MEDS ORDERED: FUROSEMIDE 40 MG/4 ML INJ IV ONE (00:35)
[2019-10-15] MEDS ORDERED: ACETAMINOPHEN 325 MG TAB PO PRN (00:59)
[2019-10-15] MEDS ORDERED: NITROGLYCERIN 0.4 MG TAB SUBL SL PRN (00:59)
[2019-10-15] MEDS ORDERED: MAGNESIUM HYDROXIDE (MOM) ORAL LIQD UDC PO PRN (00:59)
[2019-10-15] MEDS ORDERED: MORPHINE 2 MG/1 ML INJ IV PRN (00:59)
[2019-10-15] MEDS ORDERED: ONDANSETRON 4 MG/2 ML INJ IV PRN (00:59)
[2019-10-15] MEDS ORDERED: DEXTROSE 50% IN WATER (25GM) 50 ML SYRINGE IV PRN (00:59)
--- NOTE | 2019-10-15 01:10 | History and Physical Report ---
History of Present Illness Date of examination: 10/15/19 Date of admission: 10/15/19 Chief complaint: Shortness of breath History of present illness: 84-year-old [place] male with history of quadriplegia, diabetes mellitus, chronic kidney disease and history of cardiomyopathy with a EF of 30 to 35% presenting to the emergency room today complaining of shortness of breath for 2 days. He denies any chest pain, no fever or chills, no nausea or vomiting. Denies any cough. Patient has known history of AICD in place. Evaluation in the emergency room reveals pulmonary edema on her chest x-ray. Patient is also found to have multiple wounds on both lower extremities. Past History Past Medical History: arthritis, diabetes Past Surgical History: Other (Defibrillator placement) Social history: no significant social history Family history: no significant family history Medications and Allergies Allergies Allergy/AdvReac Type Severity Reaction Status Date / Time No Known Allergies Allergy Verified 07/05/19 11:07 Home Medications Medication Instructions Recorded Confirmed Last Taken Type ALBUTEROL NEB's [Proventil 0.083% 2.5 mg IH BID 07/06/19 07/20/19 07/03/19 15:00 History NEBS] Aspirin EC [Halfprin EC] 81 mg PO HS 07/06/19 07/20/19 07/03/19 21:00 History Cilostazol [Pletal] 50 mg PO BID 07/06/19 07/20/19 07/03/19 21:00 History Pravastatin Sodium [Pravastatin] 40 mg PO HS 07/06/19 07/20/19 07/03/19 21:00 History Tamsulosin [Flomax] 0.4 mg PO HS 07/06/19 07/20/19 07/03/19 21:00 History Amoxicillin/Potassium Clav 1 each PO BID #10 tablet 07/08/19 07/20/19 Unknown Rx [Augmentin 875-125 Tablet] Metoprolol [Lopressor TAB] 50 mg PO BID #60 tablet 07/08/19 07/20/19 Unknown Rx Vitamin A&D [Ad Ointment] 1 applic TP QDAY #1 tube 07/08/19 07/20/19 Unknown Rx ALBUTEROL NEB's [Proventil 0.083% 2.5 mg IH BIDRT nebu 07/28/19 Unknown Rx NEBS] Amoxicillin/K Clav Tab [Augmentin 1 each PO Q12HR #20 tablet 07/28/19 Unknown Rx 875MG TAB] Aspirin EC [Halfprin EC] 81 mg PO DAILY tablet 07/28/19 Unknown Rx Cilostazol [Pletal] 50 mg PO BID tablet 07/28/19 Unknown Rx HYDROcodone/APAP 5-325 [[place] 1 each PO Q4H PRN #30 tablet 07/28/19 Unknown Rx 5-325 mg TAB] Lispro Insulin [HumaLOG] 0 unit SUB-Q ACHS units 07/28/19 Unknown Rx Losartan [Cozaar] 50 mg PO QDAY tablet 07/28/19 Unknown Rx Metoprolol [Lopressor TAB] 50 mg PO BID tablet 07/28/19 Unknown Rx Pantoprazole [Protonix TAB] 40 mg PO QDAY tablet 07/28/19 Unknown Rx Polyethylene Glycol 3350 [Miralax 17 gm PO QDAY PRN powd.pack 07/28/19 Unknown Rx 3350] Pravastatin [Pravachol] 40 mg PO QHS tablet 07/28/19 Unknown Rx Tamsulosin [Flomax] 0.4 mg PO HS capsule 07/28/19 Unknown Rx Vitamin A&D [Ad Ointment] 1 applic TP QDAY tube 07/28/19 Unknown Rx carvediloL [Coreg] 6.25 mg PO BID tablet 07/28/19 Unknown Rx Active Meds: Active Medications Acetaminophen (Tylenol) 650 mg PO Q4H PRN PRN Reason: Pain MILD(1-3)/Fever >100.5/GORDILLO Dextrose (D50w (25gm) Syringe) 50 ml IV Q30MIN PRN; Protocol PRN Reason: Hypoglycemia Heparin Sodium (Porcine) (Heparin) 5,000 unit SUB-Q Q8HR AWA Magnesium Hydroxide (Milk Of Magnesia) 30 ml PO Q4H PRN PRN Reason: Constipation Morphine Sulfate (Morphine) 2 mg IV Q4H PRN PRN Reason: Pain, Moderate (4-6) Nitroglycerin (Nitrostat) 0.4 mg SL .Q5MIN PRN PRN Reason: Chest Pain Ondansetron HCl (Zofran) 4 mg IV Q8H PRN PRN Reason: Nausea And Vomiting Sodium Chloride (Sodium Chloride Flush Syringe 10 Ml) 10 ml IV BID AWA Sodium Chloride (Sodium Chloride Flush Syringe 10 Ml) 10 ml IV PRN PRN PRN Reason: LINE FLUSH Review of Systems Cardiovascular: edema Respiratory: shortness of breath Exam - Constitutional Vitals: Temp Pulse Resp BP Pulse Ox 97.6 F 99 H 18 137/78 95 10/14/19 21:40 10/14/19 21:40 10/14/19 21:40 10/14/19 21:40 10/14/19 21:40 General appearance: Present: no acute distress, well-nourished - EENT Eyes: Present: PERRL, EOM intact ENT: hearing intact, clear oral mucosa, dentition normal - Neck Neck: Present: supple, normal ROM - Respiratory Respiratory: bilateral: rales - Cardiovascular Rhythm: regular Heart Sounds: Present: S1 & S2 - Extremities Extremities: no ischemia, Full ROM Extremity abnormal: edema, ulceration (Ulceration on both feet with dressing in place) Peripheral Pulses: within normal limits - Abdominal General gastrointestinal: Present: soft, non-tender, non-distended - Integumentary Integumentary: Present: clear, warm, dry - Musculoskeletal Musculoskeletal: strength equal bilaterally - Neurologic Neurologic: CNII-XII intact, other (Patient is quadriplegic) Results - Labs CBC & Chem 7: 10/14/19 22:55 10/14/19 22:55 Labs: Abnormal lab results 10/14/19 10/14/19 10/14/19 Range/Units 22:55 22:55 22:55 Hgb 11.0 L (11.8-15.2) gm/dl Hct 33.2 L (35.5-45.6) % RDW 16.8 H (13.2-15.2) % Lymph % (Auto) 11.1 L (13.4-35.0) % Lymph # 0.7 L (1.2-5.4) K/mm3 Seg Neutrophils % 80.1 H (40.0-70.0) % PT 16.4 H (12.2-14.9) Sec. INR 1.30 H (0.87-1.13) Potassium 3.0 L (3.6-5.0) mmol/L Creatinine 0.6 L (0.8-1.5) mg/dL Troponin T 0.048 H (0.00-0.029) ng/mL NT-Pro-B Natriuret Pep 42656 H (0-900) pg/mL Assessment and Plan - Patient Problems (1) Acute exacerbation of CHF (congestive heart failure) Current Visit: Yes Status: Acute Plan to address problem: Patient will be diuresed and will monitor daily weight. We will also monitor input and output. (2) Hypokalemia Current Visit: Yes Status: Acute Plan to address problem: Potassium repleted. Will monitor chemistry. (3) CAD (coronary artery disease) Current Visit: No Status: Chronic Plan to address problem: Stable. Will continue routine home medication. (4) Diabetes Current Visit: No Status: Chronic Plan to address problem: We will monitor Accu-Chek. (5) Wound of lower extremity Current Visit: Yes Status: Acute Plan to address problem: Will request wound care team evaluation and recommendation. (6) DVT prophylaxis Current Visit: No Status: Acute Plan to address problem: Patient placed on subcutaneous heparin (7) Full code status Current Visit: Yes Status: Acute
[2019-10-15 01:34] LABS: Chol/HDL Ratio 3.31 %; HDL Cholesterol 44 mg/dL (40-59); LDL Cholesterol,Direct 100 mg/dL (50-130)
[2019-10-15] MEDS: HEPARIN 5,000 UNIT/1 ML VIAL SUB-Q SCH ×3 (06:04→21:24)
--- NOTE | 2019-10-15 13:38 | Consultation ---
History of Present Illness Consult date: 10/15/19 - History of present illness History of present illness: 84 yo non-ambulatory male with dementia and BLE ulcerations. Past History Past Medical History: arthritis, diabetes Past Surgical History: Other (Defibrillator placement) Social history: no significant social history Family history: no significant family history Medications and Allergies Allergies Allergy/AdvReac Type Severity Reaction Status Date / Time No Known Allergies Allergy Verified 07/05/19 11:07 Home Medications Medication Instructions Recorded Confirmed Last Taken Type ALBUTEROL NEB's [Proventil 0.083% 2.5 mg IH BID 07/06/19 07/20/19 07/03/19 15:00 History NEBS] Aspirin EC [Halfprin EC] 81 mg PO HS 07/06/19 07/20/19 07/03/19 21:00 History Cilostazol [Pletal] 50 mg PO BID 07/06/19 07/20/19 07/03/19 21:00 History Pravastatin Sodium [Pravastatin] 40 mg PO HS 07/06/19 07/20/19 07/03/19 21:00 History Tamsulosin [Flomax] 0.4 mg PO HS 07/06/19 07/20/19 07/03/19 21:00 History Amoxicillin/Potassium Clav 1 each PO BID #10 tablet 07/08/19 07/20/19 Unknown Rx [Augmentin 875-125 Tablet] Metoprolol [Lopressor TAB] 50 mg PO BID #60 tablet 07/08/19 07/20/19 Unknown Rx Vitamin A&D [Ad Ointment] 1 applic TP QDAY #1 tube 07/08/19 07/20/19 Unknown Rx ALBUTEROL NEB's [Proventil 0.083% 2.5 mg IH BIDRT nebu 07/28/19 Unknown Rx NEBS] Amoxicillin/K Clav Tab [Augmentin 1 each PO Q12HR #20 tablet 07/28/19 Unknown Rx 875MG TAB] Aspirin EC [Halfprin EC] 81 mg PO DAILY tablet 07/28/19 Unknown Rx Cilostazol [Pletal] 50 mg PO BID tablet 07/28/19 Unknown Rx HYDROcodone/APAP 5-325 [[place] 1 each PO Q4H PRN #30 tablet 07/28/19 Unknown Rx 5-325 mg TAB] Lispro Insulin [HumaLOG] 0 unit SUB-Q ACHS units 07/28/19 Unknown Rx Losartan [Cozaar] 50 mg PO QDAY tablet 07/28/19 Unknown Rx Metoprolol [Lopressor TAB] 50 mg PO BID tablet 07/28/19 Unknown Rx Pantoprazole [Protonix TAB] 40 mg PO QDAY tablet 07/28/19 Unknown Rx Polyethylene Glycol 3350 [Miralax 17 gm PO QDAY PRN powd.pack 07/28/19 Unknown Rx 3350] Pravastatin [Pravachol] 40 mg PO QHS tablet 07/28/19 Unknown Rx Tamsulosin [Flomax] 0.4 mg PO HS capsule 07/28/19 Unknown Rx Vitamin A&D [Ad Ointment] 1 applic TP QDAY tube 07/28/19 Unknown Rx carvediloL [Coreg] 6.25 mg PO BID tablet 07/28/19 Unknown Rx Active Meds: Active Medications Acetaminophen (Tylenol) 650 mg PO Q4H PRN PRN Reason: Pain MILD(1-3)/Fever >100.5/GORDILLO Dextrose (D50w (25gm) Syringe) 50 ml IV Q30MIN PRN; Protocol PRN Reason: Hypoglycemia Heparin Sodium (Porcine) (Heparin) 5,000 unit SUB-Q Q8HR [facility] Last Admin: 10/15/19 13:24 Dose: 5,000 unit Documented by: Magnesium Hydroxide (Milk Of Magnesia) 30 ml PO Q4H PRN PRN Reason: Constipation Morphine Sulfate (Morphine) 2 mg IV Q4H PRN PRN Reason: Pain, Moderate (4-6) Nitroglycerin (Nitrostat) 0.4 mg SL .Q5MIN PRN PRN Reason: Chest Pain Ondansetron HCl (Zofran) 4 mg IV Q8H PRN PRN Reason: Nausea And Vomiting Sodium Chloride (Sodium Chloride Flush Syringe 10 Ml) 10 ml IV BID [facility] Last Admin: 10/15/19 13:24 Dose: 10 ml Documented by: Sodium Chloride (Sodium Chloride Flush Syringe 10 Ml) 10 ml IV PRN PRN PRN Reason: LINE FLUSH Review of Systems All systems: negative (none) Exam Vital Signs Temp Pulse Resp BP Pulse Ox 97.6 F 99 H 18 137/78 95 10/14/19 21:40 10/14/19 21:40 10/14/19 21:40 10/14/19 21:40 10/14/19 21:40 - General physical appearance Positive: well developed, well nourished, no distress - Eyes Positive: PERRL, normal occular movement - ENT Positive: normal pinna, normal nares, normal mucosa, no hearing loss, no congestion - Neck Positive: no masses, no bruits, trachea midline, no venous distension - Respiratory Positive: normal expansion, normal respiratory effort, clear to auscultation - Cardiovascular Rhythm: regular Heart Sounds: Present: S1 & S2. Absent: rub, click - Breasts Breasts: deferred - Abdomen Abdomen: Present: soft, bowel sounds normal. Absent: tender, distended Hernia: none - Genitourinary Male Genitourinary: deferred - Integumentary other (There are multiple pressure and non-pressure ulcerations of his bilateral legs and feet (See my op note for details.).) - Neurologic Neurologic: other (He says the year is 1918. President is Natalie. He is at [facility] [place] - Musculoskeletal other (Non-ambulatory) Results - Labs 10/14/19 22:55 10/14/19 22:55 Abnormal lab results 10/14/19 10/14/19 10/14/19 Range/Units 22:55 22:55 22:55 Hgb 11.0 L (11.8-15.2) gm/dl Hct 33.2 L (35.5-45.6) % RDW 16.8 H (13.2-15.2) % Lymph % (Auto) 11.1 L (13.4-35.0) % Lymph # 0.7 L (1.2-5.4) K/mm3 Seg Neutrophils % 80.1 H (40.0-70.0) % PT 16.4 H (12.2-14.9) Sec. INR 1.30 H (0.87-1.13) Potassium 3.0 L (3.6-5.0) mmol/L Creatinine 0.6 L (0.8-1.5) mg/dL POC Glucose (70-105) Troponin T 0.048 H (0.00-0.029) ng/mL NT-Pro-B Natriuret Pep 97962 H (0-900) pg/mL 10/15/19 Range/Units 12:46 Hgb (11.8-15.2) gm/dl Hct (35.5-45.6) % RDW (13.2-15.2) % Lymph % (Auto) (13.4-35.0) % Lymph # (1.2-5.4) K/mm3 Seg Neutrophils % (40.0-70.0) % PT (12.2-14.9) Sec. INR (0.87-1.13) Potassium (3.6-5.0) mmol/L Creatinine (0.8-1.5) mg/dL POC Glucose 109 H (70-105) Troponin T (0.00-0.029) ng/mL NT-Pro-B Natriuret Pep (0-900) pg/mL Diabetes panel 10/14/19 Range/Units 22:55 Sodium 143 (137-145) mmol/L Potassium 3.0 L (3.6-5.0) mmol/L Chloride 103.7 (98-107) mmol/L Carbon Dioxide 25 (22-30) mmol/L BUN 12 (9-20) mg/dL Creatinine 0.6 L (0.8-1.5) mg/dL Glucose 80 (75-100) mg/dL Calcium 8.4 (8.4-10.2) mg/dL Triglycerides 66 (2-149) mg/dL HDL Cholesterol 44 (40-59) mg/dL Calcium panel 10/14/19 Range/Units 22:55 Calcium 8.4 (8.4-10.2) mg/dL Pituitary panel 10/14/19 Range/Units 22:55 Sodium 143 (137-145) mmol/L Potassium 3.0 L (3.6-5.0) mmol/L Chloride 103.7 (98-107) mmol/L Carbon Dioxide 25 (22-30) mmol/L BUN 12 (9-20) mg/dL Creatinine 0.6 L (0.8-1.5) mg/dL Glucose 80 (75-100) mg/dL Calcium 8.4 (8.4-10.2) mg/dL Adrenal panel 10/14/19 Range/Units 22:55 Sodium 143 (137-145) mmol/L Potassium 3.0 L (3.6-5.0) mmol/L Chloride 103.7 (98-107) mmol/L Carbon Dioxide 25 (22-30) mmol/L BUN 12 (9-20) mg/dL Creatinine 0.6 L (0.8-1.5) mg/dL Glucose 80 (75-100) mg/dL Calcium 8.4 (8.4-10.2) mg/dL - Imaging Additional studies: Arterial dopplers of his BLE's on 07/20/19 revealed no hemodynamically significant stenoses. 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 Please see my op note of today. 2) Will continue local wound care 3) Intense nutritional support 4) Off loading of all pressure areas 5) Family will consider amputation in this non-ambulatory pt.
--- NOTE | 2019-10-15 13:54 | Procedure Note ---
Date of procedure: 10/15/19 Pre-op diagnosis: Non-pressure wounds of right foot & leg; Pressure ulcers of B heels Post-op diagnosis: same Procedure: Debridement of bilateral heel, right leg and right foot wounds Description of procedure: Pt was positioned so as to expose his wounds. Each area was prepped and draped. A surgical/excisional debridement of necrotic skin, SQ tissue and tendon/fascia was then performed of the right lateral foot, right anterior distal leg & right heel with forceps and scalpel. A surgical/excisional debridement of necrotic skin and SQ tissue was then performed of the left heel with forceps and scalpel. Bleeding was minimal and was controlled with pressure. Pt tolerated the procedure well. His wounds were dressed by the Wound Care nurse. Final wound measurements were as follows: 1) Right lateral foot - 7 X 3 X 0.7 cm 2) Right anterior distal leg - 11 X 3 X 0.5 cm 3) Right heel - 7 X 5.5 X 0.7 cm 4) Left heel - 3.9 X 4 X 0.5 cm Anesthesia: none Surgeon: SHERIN LAWLER Estimated blood loss: minimal Pathology: none Specimen disposition: discarded Condition: stable Disposition: no change
--- NOTE | 2019-10-15 17:18 | Event Note ---
Date: 10/15/19 Patient seen and examined 84-year-old [place]ian male with history of quadriplegia, diabetes mellitus, chronic kidney disease and history of cardiomyopathy with a EF of 30 to 35% s/p ICD presenting to the emergency room today complaining of shortness of breath for 2 days. Evaluation in the emergency room reveals pulmonary edema on his chest x-ray, admitted for CHf exacerbation. Patient is also found to have multiple wounds on both lower extremities - s/p debridement by surgery today. Noted 8 runs of Vtac on tele - will consult cardiology
[2019-10-15 19:51] LABS: BUN/Creatinine Ratio 19; Blood Urea Nitrogen 13 mg/dL (9-20); Calcium 8.4 mg/dL (8.4-10.2); Hemolysis Index 7
[2019-10-16] MEDS ORDERED: FUROSEMIDE 40 MG/4 ML INJ IV ONE (01:22)
[2019-10-16] MEDS ORDERED: POTASSIUM CHLORIDE ER 20 MEQ TAB PO ONE (02:05)
[2019-10-16 05:52] LABS: Basophils # (Auto) 0.1 K/mm3 (0.0-0.1); Basophils % (Auto) 1.5 % (0.0-1.8); Eosinophils % (Auto) 0.6 % (0.0-4.3); Hematocrit 32.5 % (35.5-45.6); Hemoglobin 10.6 gm/dl (11.8-15.2); Lymphocytes # (Auto) 0.9 K/mm3 (1.2-5.4); Lymphocytes % (Auto) 17.7 % (13.4-35.0); Mean Corpuscular HGB Conc 33 % (32-34); Mean Corpuscular Volume 91 fl (84-94); Monocytes # (Auto) 0.5 K/mm3 (0.0-0.8); Monocytes % (Auto) 10.3 % (0.0-7.3); Platelet Count 227 K/mm3 (140-440); Red Blood Count 3.58 M/mm3 (3.65-5.03); Red Cell Distribution Width 16.6 % (13.2-15.2)
[2019-10-16 05:58] LABS: BUN/Creatinine Ratio 22; Blood Urea Nitrogen 13 mg/dL (9-20); Calcium 8.3 mg/dL (8.4-10.2); Hemolysis Index 9
[2019-10-16 06:00] LABS: BUN/Creatinine Ratio 22; Blood Urea Nitrogen 13 mg/dL (9-20); Calcium 8.3 mg/dL (8.4-10.2); Hemolysis Index 2; INR 1.13 (0.87-1.13)
[2019-10-16 06:01] LABS: Partial Thromboplastin Time 57.5 Sec. (24.2-36.6)
[2019-10-16] MEDS: HEPARIN 5,000 UNIT/1 ML VIAL SUB-Q SCH ×3 (06:24→21:47)
--- NOTE | 2019-10-16 11:49 | Consultation ---
History of Present Illness Consult date: 10/16/19 Requesting physician: NADINE ROACH Consult reason: congestive heart failure History of present illness: The pt is an 84 YO male with a past medical history of CAD s/p PCI, ICMP, AICD in situ, NSVT, HTN, HLP, DM, functional quadriplegia/bed bound state, BLE wounds, gangrene. He is followed in our office by Dr. Glez. He presented with c/o SOB for 2 days prior to arrival. He denies any chest pain, palpitations, n/ v, diaphoresis, dizziness or syncope. Patient was also found to have multiple wounds on both lower extremities and is s/p debridement by surgery today yesterday. He was noted to have short bouts (5-7 beats) of NSVT on telemetry and thus cardiology has been consulted. Echo done 07/2019 showed EF 30-35%, LA and RA mildly dilated, RV mildly dilated, catheter in RA, mild TR, RVSP 47mmHg. LHC done 02/2015 showed mod diffuse nonobstructive CAD with 30-40% prox RCA, 25% mid RCA, 25% distal left circ, EF 40-45%. AICD interrogation 05/2019 showed normal device function, no episodes. Past History Past Medical History: other (as per HPI) Past Surgical History: Other (Defibrillator placement) Social history: no significant social history Family history: no significant family history Medications and Allergies Allergies Allergy/AdvReac Type Severity Reaction Status Date / Time No Known Allergies Allergy Verified 07/05/19 11:07 Home Medications Medication Instructions Recorded Confirmed Last Taken Type ALBUTEROL NEB's [Proventil 0.083% 2.5 mg IH BID 07/06/19 07/20/19 07/03/19 15:00 History NEBS] Aspirin EC [Halfprin EC] 81 mg PO HS 07/06/19 07/20/19 07/03/19 21:00 History Cilostazol [Pletal] 50 mg PO BID 07/06/19 07/20/19 07/03/19 21:00 History Pravastatin Sodium [Pravastatin] 40 mg PO HS 07/06/19 07/20/19 07/03/19 21:00 History Tamsulosin [Flomax] 0.4 mg PO HS 07/06/19 07/20/19 07/03/19 21:00 History Amoxicillin/Potassium Clav 1 each PO BID #10 tablet 07/08/19 07/20/19 Unknown Rx [Augmentin 875-125 Tablet] Metoprolol [Lopressor TAB] 50 mg PO BID #60 tablet 07/08/19 07/20/19 Unknown Rx Vitamin A&D [Ad Ointment] 1 applic TP QDAY #1 tube 07/08/19 07/20/19 Unknown Rx ALBUTEROL NEB's [Proventil 0.083% 2.5 mg IH BIDRT nebu 07/28/19 Unknown Rx NEBS] Amoxicillin/K Clav Tab [Augmentin 1 each PO Q12HR #20 tablet 07/28/19 Unknown Rx 875MG TAB] Aspirin EC [Halfprin EC] 81 mg PO DAILY tablet 07/28/19 Unknown Rx Cilostazol [Pletal] 50 mg PO BID tablet 07/28/19 Unknown Rx HYDROcodone/APAP 5-325 [[place] 1 each PO Q4H PRN #30 tablet 07/28/19 Unknown Rx 5-325 mg TAB] Lispro Insulin [HumaLOG] 0 unit SUB-Q ACHS units 07/28/19 Unknown Rx Losartan [Cozaar] 50 mg PO QDAY tablet 07/28/19 Unknown Rx Metoprolol [Lopressor TAB] 50 mg PO BID tablet 07/28/19 Unknown Rx Pantoprazole [Protonix TAB] 40 mg PO QDAY tablet 07/28/19 Unknown Rx Polyethylene Glycol 3350 [Miralax 17 gm PO QDAY PRN powd.pack 07/28/19 Unknown Rx 3350] Pravastatin [Pravachol] 40 mg PO QHS tablet 07/28/19 Unknown Rx Tamsulosin [Flomax] 0.4 mg PO HS capsule 07/28/19 Unknown Rx Vitamin A&D [Ad Ointment] 1 applic TP QDAY tube 07/28/19 Unknown Rx carvediloL [Coreg] 6.25 mg PO BID tablet 07/28/19 Unknown Rx Active Meds: Active Medications Acetaminophen (Tylenol) 650 mg PO Q4H PRN PRN Reason: Pain MILD(1-3)/Fever >100.5/GORDILLO Dextrose (D50w (25gm) Syringe) 50 ml IV Q30MIN PRN; Protocol PRN Reason: Hypoglycemia Furosemide (Lasix) 40 mg IV 0600,1800 AWA Heparin Sodium (Porcine) (Heparin) 5,000 unit SUB-Q Q8HR [facility] Last Admin: 10/16/19 06:24 Dose: 5,000 unit Documented by: Magnesium Hydroxide (Milk Of Magnesia) 30 ml PO Q4H PRN PRN Reason: Constipation Morphine Sulfate (Morphine) 2 mg IV Q4H PRN PRN Reason: Pain, Moderate (4-6) Nitroglycerin (Nitrostat) 0.4 mg SL .Q5MIN PRN PRN Reason: Chest Pain Ondansetron HCl (Zofran) 4 mg IV Q8H PRN PRN Reason: Nausea And Vomiting Sodium Chloride (Sodium Chloride Flush Syringe 10 Ml) 10 ml IV BID [facility] Last Admin: 10/16/19 09:52 Dose: 10 ml Documented by: Sodium Chloride (Sodium Chloride Flush Syringe 10 Ml) 10 ml IV PRN PRN PRN Reason: LINE FLUSH Review of Systems Constitutional: no fever, no chills, no sweats Ears, nose, mouth and throat: no ear pain, no nose pain, no sinus pressure, no sinus pain Cardiovascular: orthopnea, shortness of breath, dyspnea on exertion, no chest pain, no palpitations, no rapid/irregular heart beat, no edema, no syncope, no lightheadedness Respiratory: shortness of breath, dyspnea on exertion, no cough, no congestion, no wheezing, no pain on inspiration Gastrointestinal: no abdominal pain, no nausea, no vomiting, no diarrhea, no constipation, no change in bowel habits Genitourinary Male: no dysuria, no hematuria, no flank pain, no discharge, no urinary frequency, no urinary hesitancy Musculoskeletal: no neck stiffness, no neck pain, no shooting arm pain, no arm numbness/tingling, no low back pain, no shooting leg pain Integumentary: other (BLE wounds) Neurological: no head injury, no paralysis, no weakness, no parathesias, no numbness, no tingling, no seizures, no syncope Psychiatric: no anxiety Endocrine: no cold intolerance, no heat intolerance Hematologic/Lymphatic: no easy bruising, no easy bleeding Allergic/Immunologic: no urticaria, no wheezing Physical Examination Vital Signs Temp Pulse Resp BP Pulse Ox 97.6 F 99 H 18 137/78 95 10/14/19 21:40 10/14/19 21:40 10/14/19 21:40 10/14/19 21:40 10/14/19 21:40 General appearance: no acute distress HEENT: Positive: PERRL, Normocephaly, Mucus Membranes Moist Neck: Positive: neck supple, trachea midline Cardiac: Positive: Reg Rate and Rhythm, S1/S2 Lungs: Positive: Decreased Breath Sounds Neuro: Positive: Grossly Intact Abdomen: Negative: Tender Skin: Positive: Other (BLE wounds) Extremities: Present: edema (BLE) Results 10/16/19 04:47 10/16/19 04:47 Coagulation 10/16/19 Range/Units 04:47 PT 14.7 (12.2-14.9) Sec. INR 1.13 (0.87-1.13) APTT 57.5 H (24.2-36.6) Sec. CBC 10/16/19 Range/Units 04:47 WBC 4.9 (4.5-11.0) K/mm3 RBC 3.58 L (3.65-5.03) M/mm3 Hgb 10.6 L (11.8-15.2) gm/dl Hct 32.5 L (35.5-45.6) % Plt Count 227 (140-440) K/mm3 Lymph # 0.9 L (1.2-5.4) K/mm3 [place] # 0.5 (0.0-0.8) K/mm3 Eos # 0.0 (0.0-0.4) K/mm3 Baso # 0.1 (0.0-0.1) K/mm3 Comprehensive Metabolic Panel 10/15/19 10/16/19 10/16/19 Range/Units 19:06 04:47 04:47 Sodium 141 143 143 (137-145) mmol/L Potassium 3.5 L 4.2 4.4 (3.6-5.0) mmol/L Chloride 102.7 104.1 105.3 (98-107) mmol/L Carbon Dioxide 24 29 28 (22-30) mmol/L BUN 13 13 13 (9-20) mg/dL Creatinine 0.7 L 0.6 L 0.6 L (0.8-1.5) mg/dL Glucose 106 H 93 94 (75-100) mg/dL Calcium 8.4 8.3 L 8.3 L (8.4-10.2) mg/dL - Imaging and Cardiology Echo: report reviewed ( 07/2019 showed EF 30-35%, LA and RA mildly dilated, RV mildly dilated, catheter in RA, mild TR, RVSP 47mmHg. ) EKG: report reviewed, image reviewed EKG interpretations - Telemetry EKG Rhythm: Sinus Rhythm - EKG Sinus rhythms and dysrhythmias: sinus rhythm Assessment and Plan Cont GDMT and diuretics as tolerated. The patient has been seen in conjunction with Dr. Glez who agrees with the assessment and plan of care. - Patient Problems (1) Acute on chronic HFrEF (heart failure with reduced ejection fraction) Current Visit: Yes Status: Acute (2) Ischemic cardiomyopathy Current Visit: Yes Status: Chronic (3) Automatic implantable cardioverter-defibrillator in situ Current Visit: Yes Status: Chronic (4) NSVT (nonsustained ventricular tachycardia) Current Visit: Yes Status: Acute (5) CAD (coronary artery disease) Current Visit: Yes Status: Chronic (6) Stented coronary artery Current Visit: Yes Status: Chronic (7) Wound of lower extremity Current Visit: Yes Status: Chronic (8) Gangrene Current Visit: Yes Status: Suspected (9) Elevated troponin Current Visit: Yes Status: Acute (10) Anemia Current Visit: Yes Status: Chronic Qualifiers: Anemia type: other cause Other causes of anemia: chronic disease, other Qualified Code(s): D63.8 - Anemia in other chronic diseases classified elsewhere (11) Debility Current Visit: Yes Status: Chronic (12) HTN (hypertension) Current Visit: Yes Status: Chronic (13) Diabetes Current Visit: Yes Status: Chronic
--- NOTE | 2019-10-16 16:08 | Progress Note ---
Assessment and Plan / Acute exacerbation of systolic CHF (congestive heart failure) ef 30% cont diuresis and will monitor daily weight. We will also monitor input and output. cardiology following: Echo done 07/2019 showed EF 30-35%, LA and RA mildly dilated, RV mildly dilated, catheter in RA, mild TR, RVSP 47mmHg. LHC done 02/2015 showed mod diffuse nonobstructive CAD with 30-40% prox RCA, 25% mid RCA, 25% distal left circ, EF 40-45%. AICD interrogation 05/2019 showed normal device function, no episodes. CXR: 1. Marked increase in size of the cardiac silhouette. 2. Generalized bilateral pulmonary opacities may represent edema/atelectasis. 3. Bilateral pleural effusions, right greater than left. / Hypokalemia Potassium repleted. Will monitor chemistry. / CAD (coronary artery disease) Stable. Will continue routine home medication. / Diabetes type 2 We will monitor with Accu-Chek and SSI. 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 / Debility, Chronic - supportive care, patient is wheel chair bound / DVT prophylaxis Patient placed on subcutaneous heparin / Full code status Disposition: home with HH, prognosis - guarded Subjective Date of service: 10/16/19 Interval history: Patient seen and examined noted running Vtec on tele, cardiology following denies any acute issue Objective - Constitutional Vitals: Vital Signs - 12hr 10/16/19 10/16/19 10/16/19 04:46 07:00 08:09 Temperature 97.8 F 98.3 F Pulse Rate 84 87 Respiratory 16 18 18 Rate Blood Pressure 106/68 110/67 O2 Sat by Pulse 100 Oximetry 10/16/19 12:14 Temperature Pulse Rate 87 Respiratory Rate Blood Pressure 104/59 O2 Sat by Pulse 96 Oximetry General appearance: Present: disheveled, other (elderly illlooking) - EENT Eyes: PERRL, EOM intact ENT: hearing intact, clear oral mucosa Ears: bilateral: normal - Neck Neck: supple, normal ROM - Respiratory Respiratory effort: normal Respiratory: bilateral: rales - Cardiovascular Rhythm: regular Heart Sounds: Present: S1 & S2. Absent: gallop, rub Extremities: pulses intact Extremity abnormal: edema (3+), ulceration, other (b/l LE wound dressing) - Gastrointestinal General gastrointestinal: Present: soft, non-tender, non-distended, normal bowel sounds - Integumentary Integumentary: clear, warm, dry - Musculoskeletal Musculoskeletal: other (b/l LE weakness) - Neurologic Neurologic: no gait normal - Psychiatric Psychiatric: memory intact, appropriate mood/affect, intact judgment & insight - Labs CBC & Chem 7: 10/16/19 04:47 10/16/19 04:47 Labs: Abnormal lab results 10/15/19 10/15/19 10/15/19 Range/Units 19:06 20:06 22:58 RBC (3.65-5.03) M/mm3 Hgb (11.8-15.2) gm/dl Hct (35.5-45.6) % RDW (13.2-15.2) % Chaves % (Auto) (0.0-7.3) % Lymph # (1.2-5.4) K/mm3 APTT (24.2-36.6) Sec. Potassium 3.5 L (3.6-5.0) mmol/L Creatinine 0.7 L (0.8-1.5) mg/dL Glucose 106 H (75-100) mg/dL POC Glucose 107 H (70-105) Calcium (8.4-10.2) mg/dL Troponin T 0.060 H D (0.00-0.029) ng/mL 10/16/19 10/16/19 10/16/19 Range/Units 04:47 04:47 04:47 RBC 3.58 L (3.65-5.03) M/mm3 Hgb 10.6 L (11.8-15.2) gm/dl Hct 32.5 L (35.5-45.6) % RDW 16.6 H (13.2-15.2) % Chaves % (Auto) 10.3 H (0.0-7.3) % Lymph # 0.9 L (1.2-5.4) K/mm3 APTT 57.5 H (24.2-36.6) Sec. Potassium (3.6-5.0) mmol/L Creatinine 0.6 L (0.8-1.5) mg/dL Glucose (75-100) mg/dL POC Glucose (70-105) Calcium 8.3 L (8.4-10.2) mg/dL Troponin T (0.00-0.029) ng/mL 10/16/19 10/16/19 Range/Units 04:47 12:08 RBC (3.65-5.03) M/mm3 Hgb (11.8-15.2) gm/dl Hct (35.5-45.6) % RDW (13.2-15.2) % Chaves % (Auto) (0.0-7.3) % Lymph # (1.2-5.4) K/mm3 APTT (24.2-36.6) Sec. Potassium (3.6-5.0) mmol/L Creatinine 0.6 L (0.8-1.5) mg/dL Glucose (75-100) mg/dL POC Glucose 162 H (70-105) Calcium 8.3 L (8.4-10.2) mg/dL Troponin T (0.00-0.029) ng/mL
[2019-10-16] MEDS: FUROSEMIDE 40 MG/4 ML INJ IV SCH (17:37)
[2019-10-16] MEDS: carvediloL 6.25 MG TAB PO SCH (21:47)
[2019-10-16] MEDS: INSULIN REGULAR, HUMAN 100 UNITS/1 ML SUB-Q SCH (21:55)
[2019-10-16] MEDS ORDERED: PRAVASTATIN 40 MG TAB PO SCH (22:00)
[2019-10-17] MEDS: HEPARIN 5,000 UNIT/1 ML VIAL SUB-Q SCH (06:54)
[2019-10-17] MEDS: FUROSEMIDE 40 MG/4 ML INJ IV SCH (06:54)
[2019-10-17] MEDS: INSULIN REGULAR, HUMAN 100 UNITS/1 ML SUB-Q SCH ×2 (07:30→11:30)
[2019-10-17 08:55] VITALS: BP 112/62
--- NOTE | 2019-10-17 09:45 | Progress Note ---
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 Current Visit: Yes Status: Acute (4) CAD (coronary artery disease) Current Visit: Yes Status: Chronic (5) Debility Current Visit: Yes Status: Chronic (6) Diabetes Current Visit: Yes Status: Chronic (7) HTN (hypertension) Current Visit: Yes Status: Chronic (8) Ischemic cardiomyopathy Current Visit: Yes Status: Chronic (9) Stented coronary artery Current Visit: Yes Status: Chronic (10) Wound of lower extremity Current Visit: Yes Status: Chronic (11) WILLIAM (acute kidney injury) Current Visit: No Status: Acute (12) Altered mental status Current Visit: No Status: Resolved Subjective Date of service: 10/17/19 Interval history: no acute events overnight resting comfortably Objective Vital Signs Temp Pulse Resp BP Pulse Ox 10/17/19 08:21 97.8 F 77 18 112/62 95 10/17/19 04:44 97.8 F 79 18 103/63 100 10/17/19 00:04 98.1 F 86 18 113/71 100 10/16/19 23:50 18 10/16/19 23:00 86 10/16/19 21:47 89 102/63 10/16/19 19:32 97.8 F 83 18 112/68 100 10/16/19 16:59 89 102/63 100 10/16/19 12:14 87 104/59 96 - Physical Examination HEENT: Positive: PERRL, Normocephaly, Mucus Membranes Moist Neck: Positive: neck supple, trachea midline Neuro: Positive: Grossly Intact Abdomen: Negative: Tender Skin: Positive: Other (BLE wounds) Extremities: Present: edema (BLE) - Imaging and Cardiology EKG: report reviewed, image reviewed Echo: report reviewed ( 07/2019 showed EF 30-35%, LA and RA mildly dilated, RV mildly dilated, catheter in RA, mild TR, RVSP 47mmHg. ) - EKG Sinus rhythms and dysrhythmias: sinus rhythm
[2019-10-17] MEDS ORDERED: LOSARTAN 50 MG TAB PO SCH (10:00)
[2019-10-17] MEDS ORDERED: ASPIRIN EC 81 MG TAB PO SCH (10:00)
[2019-10-17] MEDS: carvediloL 6.25 MG TAB PO SCH (10:23)
--- NOTE | 2019-10-17 12:26 | Discharge Summary ---
Providers - Providers Date of Admission: 10/15/19 00:59 Date of discharge: 10/17/19 Attending physician: NADINE ROACH 10/15/19 05:02 Consult to Wound/ET Nurse [CONS] Routine Reason For Exam: wound eval on lower extremities and buttocks and s 10/15/19 17:15 Consult to Physician [CONS] Routine Comment: Consulting Provider: VALENTINA GARY Physician Instructions: Reason For Exam: SVT 10/17/19 09:54 Physical Therapy Evaluation and Treat [CONS] Routine Comment: Reason For Exam: placement Primary care physician: YU LYON Hospitalization Condition: Stable Hospital course: Discharge diagnosis: / Acute exacerbation of systolic CHF (congestive heart failure) ef 30% cont diuresis and will monitor daily weight. We will also monitor input and output. cardiology following: Echo done 07/2019 showed EF 30-35%, LA and RA mildly dilated, RV mildly dilated, catheter in RA, mild TR, RVSP 47mmHg. LHC done 02/2015 showed mod diffuse nonobstructive CAD with 30-40% prox RCA, 25% mid RCA, 25% distal left circ, EF 40-45%. AICD interrogation 05/2019 showed normal device function, no episodes. CXR: 1. Marked increase in size of the cardiac silhouette. 2. Generalized bilateral pulmonary opacities may represent edema/atelectasis. 3. Bilateral pleural effusions, right greater than left. / Hypokalemia Potassium repleted. Will monitor chemistry. / CAD (coronary artery disease) Stable. Will continue routine home medication. / Diabetes type 2 We will monitor with Accu-Chek and SSI. 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 / Debility, Chronic - supportive care, patient is wheel chair bound Disposition: [id number] HOME UNDER HOME HL[facility] Time spent for discharge: 34 minutes Core Measure Documentation - Palliative Care Palliative Care/ Comfort Measures: Not Applicable - Core Measures Any of the following diagnoses?: heart failure - Heart Failure Discharge Requirements KEVIN/ARB for LVSD if EF <40%: Yes Beta mau at discharge: Yes Exam - Physical Exam Narrative exam: General appearance: Present: (elderly illlooking), NAD - EENT Eyes: PERRL, EOM intact ENT: hearing intact, clear oral mucosa Ears: bilateral: normal - Neck Neck: supple, normal ROM - Respiratory Respiratory effort: normal Respiratory: bilateral: CTABL - Cardiovascular Rhythm: regular Heart Sounds: Present: S1 & S2. Absent: gallop, rub Extremities: pulses intact Extremity abnormal: edema (1+), ulceration, other (b/l LE wound dressing) - Gastrointestinal General gastrointestinal: Present: soft, non-tender, non-distended, normal bowel sounds - Integumentary Integumentary: clear, warm, dry - Musculoskeletal Musculoskeletal: other (b/l LE weakness) - Neurologic Neurologic: no gait normal - Psychiatric Psychiatric: memory intact, appropriate mood/affect, intact judgment & insight - Constitutional Vitals: Temp Pulse Resp BP Pulse Ox 97.8 F 77 18 112/62 95 10/17/19 08:21 10/17/19 10:23 10/17/19 08:21 10/17/19 10:23 10/17/19 08:21 Plan Activity: up only with assistance Weight Bearing Status: Non-Weight Bearing Diet: low salt, diabetic Wound: per wound nurse instructions (f/u outpt wound clinic) Special Instructions: restrict fluid intake to (1.2 L per day), record blood sugar diary Follow up with: YU LYON MD [Primary Care Provider] - 3-5 Days Prescriptions: Furosemide [Lasix TAB] 40 mg PO QDAY #30 tablet
== END 2019-10-17 16:21 | disposition home or self-care (01) | DRG 264 ==
LOC: ED 21:21 → 4A 10-15 00:59
PROVIDERS: ADMIT Internal Medicine Geriatric Medicine; ATTEND Internal Medicine
PROC: 0JBR0ZZ Excision of Left Foot Subcutaneous Tissue and Fascia, Open Approach (ICD-10-PCS; principal; 2019-10-15)
PROC: 0LBN0ZZ Excision of Right Lower Leg Tendon, Open Approach (ICD-10-PCS; 2019-10-15)
PROC: 0LBV0ZZ Excision of Right Foot Tendon, Open Approach (ICD-10-PCS; 2019-10-15)
DX: I13.0 Hypertensive heart and chronic kidney disease with heart failure and stage 1 through stage 4 chronic kidney disease, or unspecified chronic kidney disease (principal); I50.23 Acute on chronic systolic (congestive) heart failure; J98.11 Atelectasis; I47.1 Supraventricular tachycardia; L97.213 Non-pressure chronic ulcer of right calf with necrosis of muscle; N17.9 Acute kidney failure, unspecified; I96 Gangrene, not elsewhere classified; I42.0 Dilated cardiomyopathy; E87.6 Hypokalemia; I25.10 Atherosclerotic heart disease of native coronary artery without angina pectoris; D63.8 Anemia in other chronic diseases classified elsewhere; R53.81 Other malaise; S81.809A Unspecified open wound, unspecified lower leg, initial encounter; N18.9 Chronic kidney disease, unspecified; E11.22 Type 2 diabetes mellitus with diabetic chronic kidney disease; M19.90 Unspecified osteoarthritis, unspecified site; Z95.5 Presence of coronary angioplasty implant and graft; Y93.89 Activity, other specified; Y92.89 Other specified places as the place of occurrence of the external cause; Y99.8 Other external cause status; Z95.810 Presence of automatic (implantable) cardiac defibrillator; Z79.82 Long term (current) use of aspirin; Z79.899 Other long term (current) drug therapy
CPT/HCPCS: 36415; 71045; 80048; 80061; 82962; 83735; 83880; 84484; 85025; 85610; 85730; 87116; 93005; 93010; 96374; G0378; A9270-GY; J1644; J1815; J1940